=== PATIENT | male | born 1935 | race Caucasian/White ===

== ENCOUNTER 2017-07-26 16:53 | Inpatient (IN) | payer MEDICARE, OTHER ==
[2017-07-26 16:55] VITALS: BMI 22.6
[2017-07-26 17:20] LABS: BASO # 0.1 K/uL (0.0-0.2); BASO % 0.7 % (0.0-2.0); EOS # 0.1 K/uL (0.0-0.7); EOS % 1.2 % (0.0-4.0); HEMOGLOBIN 7.5 g/dL (12.0-18.0); LYMPH % 11.2 % (20.0-40.0); MEAN CELL VOLUME 91.7 fL (80.0-94.0); MEAN CORPUSCULAR HEMOGLOBIN 29.1 pg (27.0-31.0); MEAN CORPUSCULAR HGB CONC 31.7 g/dL (33.0-37.0); MEAN PLATELET VOLUME 9.4 fL (7.2-11.7); MONO # 0.4 K/uL (0.0-0.8); NEUT % 81.9 % (50.0-75.0); RBC 2.57 Mil/uL (4.40-5.90); RED CELL DISTRIBUTION WIDTH 18.4 % (11.5-14.5); WHITE BLOOD COUNT 8.5 K/uL (4.8-10.8)
[2017-07-26 17:40] LABS: ALB/GLOB RATIO 0.9 (1.0-2.1); ALBUMIN 2.8 g/dL (3.5-5.0); CALCIUM 8.2 mg/dl (8.6-10.4)
[2017-07-26 17:52] LABS: CK-MB 1.08 ng/mL (0.0-3.38); TROPONIN I 0.023 ng/mL (0.00-0.120)
--- NOTE | 2017-07-26 18:09 | C.PDOC ---
History Of Present Illness 81 y/o male brought to ED by EMS from hemodialysis with complaints of chest pain. During HD, systolic blood pressure was noted to be in 50s (after 1hour and half of dialysis). Patient was given 300ml of fluids through dialysis port and upon arrival of EMS denied chest pain or SOB. Patient was given ASA 324mg PO in the field. He denies physical complaints at this time. Time Seen by Provider: 07/26/17 16:56 Chief Complaint (Nursing): Chest Pain History Per: Patient, EMS History/Exam Limitations: no limitations Onset/Duration Of Symptoms: Hrs Current Symptoms Are (Timing): Better Severity: Mild Quality: "Pain" Past Medical History Reviewed: Historical Data, Nursing Documentation, Vital Signs Vital Signs: Last Vital Signs Temp 98.6 F 07/26/17 16:53 Pulse 95 H 07/26/17 16:53 Resp 12 07/26/17 16:53 BP 95/52 L 07/26/17 16:53 Pulse Ox 99 07/26/17 18:11 - Medical History PMH: Anemia, Anxiety, Atrial Fibrillation, Diabetes, HTN, Hypercholesterolemia, End Stage Renal Disease, Chronic Kidney Disease (hemodialysis) Surgical History: No Surg Hx - [facility] Procedures CYSTOSCOPY NEC (04/10/14) ENTERAL INFUSION OF CONCENTRATED NUT. SUBSTANCES (07/19/14) HEMODIALYSIS (09/04/14) INCIS W REM OF FORIEGN BODY OR DEV FROM SKIN & SUBCUT TISSUE (10/12/13) INFLUENZA VACCINATION (04/10/14) INSERT INDWELLING CATH (04/10/14) INSERT PACE. DUAL RHINA IN CHEST SUBCU/FASCIA, PERC (11/19/15) INSERTION OF PACEMAKER LEAD INTO R VENTRICLE, PERC APPROACH (11/19/15) OTHER SKIN & SUBQ I D (10/12/13) PACKED CELL TRANSFUSION (10/12/13) PERFORMANCE OF URINARY FILTRATION, MULTIPLE (11/19/15) PERFORMANCE OF URINARY FILTRATION, SINGLE (11/09/15) REMOV GASTROSTOMY TUBE (07/19/14) REPLACE GASTROSTOMY TUBE (10/12/13) RETROGRADE PYELOGRAM (04/10/14) VACCINATION NEC (04/10/14) VENOUS CATHETERIZATION FOR RENAL DIALYSIS (12/04/13) Family History: States: Diabetes, Hypertension - Social History Hx Alcohol Use: No Hx Substance Use: No - Immunization History Hx Tetanus Toxoid Vaccination: No Hx Influenza Vaccination: Yes Hx Pneumococcal Vaccination: Yes Review Of Systems Except As Marked, All Systems Reviewed And Found Negative. Cardiovascular: Positive for: Chest Pain. Negative for: Palpitations Respiratory: Negative for: Shortness of Breath Gastrointestinal: Negative for: Abdominal Pain Physical Exam - Physical Exam Appears: Well, Non-toxic, Chronically Ill, Other (Comfortable) Skin: Warm, Dry, No Rash Head: Normacephalic Eye(s): bilateral: Normal Inspection Oral Mucosa: Moist Neck: Supple Chest: Other (Left upper chest dialysis port ) Cardiovascular: Rhythm Regular Respiratory: Rales (mild at bases B/L ), No Rhonchi, No Wheezing Gastrointestinal/Abdominal: Bowel Sounds, Soft, No Tenderness, No Guarding, No Rebound Extremity: No Pedal Edema, Other (Cachectic lower extremities, heels dressed in gauze with waffle boots B/L ) Extremity: Bilateral: Normal ROM Neurological/Psych: Oriented x3 ED Course And Treatment - Laboratory Results Result Diagrams: 07/26/17 17:17 07/26/17 17:17 ECG: Interpreted By Me, Viewed By Me ECG Rhythm: Sinus Rhythm ECG Interpretation: Abnormal Interpretation Of ECG: Left axis deviation, T wave inversion in AVL and V6. No acute ST/T wave changes Rate From EC (BPM) O2 Sat by Pulse Oximetry: 99 (RA) - Radiology CXR: Interpreted by Me, Viewed By Me (no infiltrates/effusions, PPM left upper chest, dialysis cather right upper chest) Progress Note: Blood work, CXR, EKG ordered and reviewed. Blood work shows significant anemia, Hgb 7.5. As per HD staff and EMS, patient's systolic BP is typically in 90s. - Physician Consult Information Physician Contacted: Fide Duncan Outcome Of Conversation: Discussed patient with his fire watcher Dr. Duncan, states patient's Hgb is typically higher. Recommends admission for dialysis and transfusion during HD tomorrow. Patient's PMD is Dr. Krishnamurthy. Disposition - Disposition Forms: [employer] ([place]) - Scribe Statement The provider has reviewed the documentation as recorded by the Scribelaine Haskins All medical record entries made by the Scribe were at my direction and personally dictated by me. I have reviewed the chart and agree that the record accurately reflects my personal performance of the history, physical exam, medical decision making, and the department course for this patient. I have also personally directed, reviewed, and agree with the discharge instructions and disposition.
--- NOTE | 2017-07-26 19:56 | CP.PCM.CON ---
History of Present Illness - History of Present Illness History of Present Illness: REASONS FOR CONSULT : ESRD ON HD M W F ANEMIA OF CKD .. HGB 7.5 .. NEEDS TRANSFUSION PT IS WELL KNOWN TO ME .. MY HD PT .. WAS GETTING HIS REGULARY SCHEDULED HD TRX .. HD RN CALLED ME THAT PT HAS VERY LOW BP AND STARTED C/O C/P PT WAS SENT TO ER FOR EVAL CASE D/W DR BORJA IN FROM ER CASE D/W DR VICKERS ..PMD .. AT LENGTH 81 y/o male brought to ED by EMS from hemodialysis with complaints of chest pain. During HD, systolic blood pressure was noted to be in 50s (after 1hour and half of dialysis). Patient was given 300ml of fluids through dialysis port and upon arrival of EMS denied chest pain or SOB. Patient was given ASA 324mg PO in the field. He denies physical complaints at this time. Time Seen by Provider: 07/26/17 16:56 Chief Complaint (Nursing): Chest Pain History Per: Patient, EMS History/Exam Limitations: no limitations Onset/Duration Of Symptoms: Hrs Current Symptoms Are (Timing): Better Severity: Mild Quality: "Pain" Past Medical History Reviewed: Historical Data, Nursing Documentation, Vital Signs Vital Signs: Last Vital Signs Temp 98.6 F 07/26/17 16:53 Pulse 95 H 07/26/17 16:53 Resp 12 07/26/17 16:53 BP 95/52 L 07/26/17 16:53 Pulse Ox 99 07/26/17 18:11 - Medical History PMH: Anemia, Anxiety, Atrial Fibrillation, Diabetes, HTN, Hypercholesterolemia, End Stage Renal Disease, Chronic Kidney Disease (hemodialysis) Surgical History: No Surg Hx - [facility] Procedures CYSTOSCOPY NEC (04/10/14) ENTERAL INFUSION OF CONCENTRATED NUT. SUBSTANCES (07/19/14) HEMODIALYSIS (09/04/14) INCIS W REM OF FORIEGN BODY OR DEV FROM SKIN & SUBCUT TISSUE (10/12/13) INFLUENZA VACCINATION (04/10/14) INSERT INDWELLING CATH (04/10/14) INSERT PACE. DUAL RHINA IN CHEST SUBCU/FASCIA, PERC (11/19/15) INSERTION OF PACEMAKER LEAD INTO R VENTRICLE, PERC APPROACH (11/19/15) OTHER SKIN & SUBQ I D (10/12/13) PACKED CELL TRANSFUSION (10/12/13) PERFORMANCE OF URINARY FILTRATION, MULTIPLE (11/19/15) PERFORMANCE OF URINARY FILTRATION, SINGLE (11/09/15) REMOV GASTROSTOMY TUBE (07/19/14) REPLACE GASTROSTOMY TUBE (10/12/13) RETROGRADE PYELOGRAM (04/10/14) VACCINATION NEC (04/10/14) VENOUS CATHETERIZATION FOR RENAL DIALYSIS (12/04/13) Past Patient History - Past Medical History & Family History Past Medical History?: Yes - Past Social History Smoking Status: Never Smoked - CARDIAC Hx Atrial Fibrillation: Yes Hx Hypercholesterolemia: Yes Hx Hypertension: Yes - PULMONARY Hx Respiratory Disorders: Yes (Resp arrest 2013) - NEUROLOGICAL Hx Neurological Disorder: No - HEENT Hx HEENT Problems: Yes - RENAL Hx Chronic Kidney Disease: Yes (hemodialysis) - ENDOCRINE/METABOLIC Hx Endocrine Disorders: Yes Hx Diabetes Mellitus Type 2: Yes - HEMATOLOGICAL/ONCOLOGICAL Hx Anemia: Yes - INTEGUMENTARY Hx Dermatological Problems: Yes Other/Comment: 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 - MUSCULOSKELETAL/RHEUMATOLOGICAL Hx Musculoskeletal Disorders: No Hx Falls: No - GASTROINTESTINAL Hx Gastrointestinal Disorders: Yes Other/Comment: Gastric CA - GENITOURINARY/GYNECOLOGICAL Hx Genitourinary Disorders: Yes (UTI) - PSYCHIATRIC Hx Anxiety: Yes Hx Substance Use: No - SURGICAL HISTORY Hx Surgeries: Yes Other/Comment: PEG was removed PERMA CATH, Tracheostomy, colon sx, stomach tumor removal - ANESTHESIA Hx Anesthesia: Yes Hx Anesthesia Reactions: No Meds Allergies/Adverse Reactions: Allergies Allergy/AdvReac Type Severity Reaction Status Date / Time acetaminophen [From Tylenol] Allergy Verified 07/26/17 16:55 cefazolin [From Ancef] Allergy Verified 07/26/17 17:02 nitrofurantoin Allergy Verified 07/26/17 17:02 [From Macrobid] Sulfa (Sulfonamide Allergy Verified 07/26/17 17:02 Antibiotics) Results - Vital Signs Recent Vital Signs: Last Vital Signs Temp 98.6 F 07/26/17 16:53 Pulse 78 07/26/17 19:40 Resp 13 07/26/17 19:40 BP 98/51 L 07/26/17 19:40 Pulse Ox 100 07/26/17 19:40 - Labs Result Diagrams: 07/26/17 17:17 07/26/17 17:17 Labs: Laboratory Results - last 24 hr 07/26/17 07/26/1718 17:17 17:17 18:33 WBC 8.5 RBC 2.57 L Hgb 7.5 L Hct 23.6 L MCV 91.7 MCH 29.1 MCHC 31.7 L RDW 18.4 H Plt Count 205 MPV 9.4 Neut % (Auto) 81.9 H Lymph % (Auto) 11.2 L [place] % (Auto) 5.0 Eos % (Auto) 1.2 Baso % (Auto) 0.7 Neut # (Auto) 7.0 Lymph # (Auto) 1.0 [place] # (Auto) 0.4 Eos # (Auto) 0.1 Baso # (Auto) 0.1 Sodium 140 Potassium 4.5 Chloride 97 L Carbon Dioxide 31 H Anion Gap 16 BUN 36 H Creatinine 3.0 H Est GFR ( Amer) 24 Est GFR (Non-Af Amer) 20 POC Glucose (mg/dL) 110 Random Glucose 103 Calcium 8.2 L Total Bilirubin 0.3 AST 21 ALT 19 L Alkaline Phosphatase 57 Total Creatine Kinase 28 L CK-MB (Mass) 1.08 Troponin I 0.0230 NT-Pro-B Natriuret Pep 2060 H Total Protein 5.9 L Albumin 2.8 L Globulin 3.1 Albumin/Globulin Ratio 0.9 L Blood Type Antibody Screen 07/26/17 18:51 WBC RBC Hgb Hct MCV MCH MCHC RDW Plt Count MPV Neut % (Auto) Lymph % (Auto) [place] % (Auto) Eos % (Auto) Baso % (Auto) Neut # (Auto) Lymph # (Auto) [place] # (Auto) Eos # (Auto) Baso # (Auto) Sodium Potassium Chloride Carbon Dioxide Anion Gap BUN Creatinine Est GFR ( Amer) Est GFR (Non-Af Amer) POC Glucose (mg/dL) Random Glucose Calcium Total Bilirubin AST ALT Alkaline Phosphatase Total Creatine Kinase CK-MB (Mass) Troponin I NT-Pro-B Natriuret Pep Total Protein Albumin Globulin Albumin/Globulin Ratio Blood Type O POSITIVE Antibody Screen Negative Assessment & Plan - Assessment and Plan (Free Text) Assessment: ESRD ON HD M W F .. HAD ONLY 1.5 HOUR TODAY ANEMIA OF CKD HGB 7.5 .. WILL TRANSFUSE 2 UNITS PRBC ON HD IN AM HYPOTENSION .. PT NOT ON ANY ANTI HTN MEDS .. WILL WATCH .. BNP 2000 MMP P : D/W DR VICKERS HD IN AM + TRANSFUSE 2 UNITS PRBC ON HD C/O CURRENT MEDS CHECK LYTES ECHO ? MAKE SURE NO BRANDAN CARDIAL EFFUSION - Date & Time Date: 07/26/17 Time: 18:00
[2017-07-26] MEDS ORDERED: Ergocalciferol 50,000 Intl Units Cap PO SCH (20:15)
[2017-07-27 04:26] LABS: BASO # 0.1 K/uL (0.0-0.2); EOS # 0.2 K/uL (0.0-0.7); EOS % 1.6 % (0.0-4.0); LYMPH # 2.6 K/uL (1.0-4.3); LYMPH % 19.1 % (20.0-40.0); MEAN CELL VOLUME 92.8 fL (80.0-94.0); MEAN CORPUSCULAR HEMOGLOBIN 28.9 pg (27.0-31.0); MEAN CORPUSCULAR HGB CONC 31.2 g/dL (33.0-37.0); MEAN PLATELET VOLUME 9.7 fL (7.2-11.7); MONO # 0.8 K/uL (0.0-0.8); MONO % 5.7 % (0.0-10.0); NEUT # 9.9 K/uL (1.8-7.0); NEUT % 72.6 % (50.0-75.0); RBC 2.2 Mil/uL (4.40-5.90); RED CELL DISTRIBUTION WIDTH 18.4 % (11.5-14.5); WHITE BLOOD COUNT 13.7 K/uL (4.8-10.8)
[2017-07-27 04:33] LABS: HEMOGLOBIN 6.4 g/dL (12.0-18.0)
[2017-07-27] MEDS ORDERED: Sodium Chloride 0.9% 200 ML IV ONE (05:18)
[2017-07-27] MEDS ORDERED: Sodium Chloride 0.9% 250 ML IV ONE (05:28)
--- NOTE | 2017-07-27 06:29 | CP.PCM.CON ---
History of Present Illness - History of Present Illness History of Present Illness: 81yo M. with one episode of melanotic stool and coffee ground emesis. Patient not a good communicator, but alert and follows commands. Review of Systems - Review of Systems Systems not reviewed;Unavailable: Language Barrier Past Patient History - Past Medical History & Family History Past Medical History?: Yes - Past Social History Smoking Status: Never Smoked - CARDIAC Hx Atrial Fibrillation: Yes Hx Hypercholesterolemia: Yes Hx Hypertension: Yes - PULMONARY Hx Respiratory Disorders: Yes (Resp arrest 2013) - NEUROLOGICAL Hx Neurological Disorder: No - HEENT Hx HEENT Problems: Yes - RENAL Hx Chronic Kidney Disease: Yes (hemodialysis) - ENDOCRINE/METABOLIC Hx Endocrine Disorders: Yes Hx Diabetes Mellitus Type 2: Yes - HEMATOLOGICAL/ONCOLOGICAL Hx Anemia: Yes - INTEGUMENTARY Hx Dermatological Problems: Yes Other/Comment: 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 - MUSCULOSKELETAL/RHEUMATOLOGICAL Hx Musculoskeletal Disorders: No Hx Falls: No - GASTROINTESTINAL Hx Gastrointestinal Disorders: Yes Other/Comment: Gastric CA - GENITOURINARY/GYNECOLOGICAL Hx Genitourinary Disorders: Yes (UTI) - PSYCHIATRIC Hx Anxiety: Yes Hx Substance Use: No - SURGICAL HISTORY Hx Surgeries: Yes Other/Comment: PEG was removed PERMA CATH, Tracheostomy, colon sx, stomach tumor removal - ANESTHESIA Hx Anesthesia: Yes Hx Anesthesia Reactions: No Meds Allergies/Adverse Reactions: Allergies Allergy/AdvReac Type Severity Reaction Status Date / Time acetaminophen [From Tylenol] Allergy Verified 07/26/17 16:55 cefazolin [From Ancef] Allergy Verified 07/26/17 17:02 nitrofurantoin Allergy Verified 07/26/17 17:02 [From Macrobid] Sulfa (Sulfonamide Allergy Verified 07/26/17 17:02 Antibiotics) - Medications Medications: Current Medications Ascorbic Acid (Vitamin C 500 Mg Tab) 500 mg PO DAILY [facility] Ascorbic Acid (Vitamin C 500 Mg Tab) 250 mg PO DAILY [facility] Aspirin (Aspirin Chewable) 81 mg PO DAILY [facility] Clopidogrel Bisulfate (Plavix) 75 mg PO DAILY [facility] Ergocalciferol (Drisdol 50,000 Intl Units Cap) 1 cap PO Q7D [facility] Last Admin: 07/26/17 21:29 Dose: Not Given Escitalopram Oxalate (Lexapro) 2.5 mg PO DAILY [facility] Famotidine (Pepcid) 20 mg PO DAILY [facility] Home Med (Sevelamer [Renagel]) 800 mg PO BID RO Mirtazapine (Remeron) 15 mg PO HS RO Pantoprazole Sodium (Protonix Inj) 40 mg IVP DAILY RO Vitamin B Complex/Vit C/Folic Acid (Nephro-Xavier) 1 tab PO 0800 RO Physical Exam - Constitutional Appears: Cachectic - Head Exam Head Exam: ATRAUMATIC, NORMAL INSPECTION, NORMOCEPHALIC - Eye Exam Eye Exam: EOMI, Normal appearance, PERRL Pupil Exam: NORMAL ACCOMODATION, PERRL - ENT Exam ENT Exam: Mucous Membranes Dry - Respiratory Exam Respiratory Exam: Clear to Auscultation Bilateral, NORMAL BREATHING PATTERN - Cardiovascular Exam Cardiovascular Exam: Tachycardia - GI/Abdominal Exam GI & Abdominal Exam: Normal Bowel Sounds, Soft. absent: Tenderness - Neurological Exam Neurological exam: Alert - Psychiatric Exam Psychiatric exam: Flat Affect Results - Vital Signs Recent Vital Signs: Last Vital Signs Temp 98.1 F 07/27/17 06:08 Pulse 98 H 07/27/17 06:08 Resp 20 07/27/17 06:08 BP 86/46 L 07/27/17 04:50 Pulse Ox 100 07/27/17 06:08 - Labs Result Diagrams: 07/27/17 04:18 07/26/17 17:17 Labs: Laboratory Results - last 24 hr 07/26/17 07/26/17 07/26/17 17:17 17:17 18:33 WBC 8.5 RBC 2.57 L Hgb 7.5 L Hct 23.6 L MCV 91.7 MCH 29.1 MCHC 31.7 L RDW 18.4 H Plt Count 205 MPV 9.4 Neut % (Auto) 81.9 H Lymph % (Auto) 11.2 L [place] % (Auto) 5.0 Eos % (Auto) 1.2 Baso % (Auto) 0.7 Neut # (Auto) 7.0 Lymph # (Auto) 1.0 [place] # (Auto) 0.4 Eos # (Auto) 0.1 Baso # (Auto) 0.1 Sodium 140 Potassium 4.5 Chloride 97 L Carbon Dioxide 31 H Anion Gap 16 BUN 36 H Creatinine 3.0 H Est GFR ( Amer) 24 Est GFR (Non-Af Amer) 20 POC Glucose (mg/dL) 110 Random Glucose 103 Calcium 8.2 L Phosphorus Magnesium Total Bilirubin 0.3 AST 21 ALT 19 L Alkaline Phosphatase 57 Total Creatine Kinase 28 L CK-MB (Mass) 1.08 Troponin I 0.0230 NT-Pro-B Natriuret Pep 2060 H Total Protein 5.9 L Albumin 2.8 L Globulin 3.1 Albumin/Globulin Ratio 0.9 L 25-OH Vitamin D Total Stool Occult Blood Blood Type Antibody Screen 07/26/17 07/26/17 07/26/17 18:51 20:22 20:23 WBC RBC Hgb Hct MCV MCH MCHC RDW Plt Count MPV Neut % (Auto) Lymph % (Auto) [place] % (Auto) Eos % (Auto) Baso % (Auto) Neut # (Auto) Lymph # (Auto) [place] # (Auto) Eos # (Auto) Baso # (Auto) Sodium Potassium Chloride Carbon Dioxide Anion Gap BUN Creatinine Est GFR ( Amer) Est GFR (Non-Af Amer) POC Glucose (mg/dL) Random Glucose Calcium Phosphorus 2.5 Magnesium 2.0 Total Bilirubin AST ALT Alkaline Phosphatase Total Creatine Kinase CK-MB (Mass) Troponin I NT-Pro-B Natriuret Pep Total Protein Albumin Globulin Albumin/Globulin Ratio 25-OH Vitamin D Total 21.7 L Stool Occult Blood Blood Type O POSITIVE Antibody Screen Negative 07/27/17 07/27/17 07/27/17 04:18 04:34 05:02 WBC 13.7 H D RBC 2.20 L Hgb 6.4 L* Hct 20.4 L MCV 92.8 MCH 28.9 MCHC 31.2 L RDW 18.4 H Plt Count 316 D MPV 9.7 Neut % (Auto) 72.6 Lymph % (Auto) 19.1 L [place] % (Auto) 5.7 Eos % (Auto) 1.6 Baso % (Auto) 1.0 Neut # (Auto) 9.9 H Lymph # (Auto) 2.6 [place] # (Auto) 0.8 Eos # (Auto) 0.2 Baso # (Auto) 0.1 Sodium Potassium Chloride Carbon Dioxide Anion Gap BUN Creatinine Est GFR ( Amer) Est GFR (Non-Af Amer) POC Glucose (mg/dL) Random Glucose Calcium Phosphorus Magnesium Total Bilirubin AST ALT Alkaline Phosphatase Total Creatine Kinase CK-MB (Mass) Troponin I 0.0300 NT-Pro-B Natriuret Pep Total Protein Albumin Globulin Albumin/Globulin Ratio 25-OH Vitamin D Total Stool Occult Blood Positive H Blood Type Antibody Screen Assessment & Plan (1) Upper GI bleed Assessment and Plan: saw patient, dropped ngt, no output. CV: hypotensive for a normally hypertensive patient, but blood pressure already stabilizing. if no further improvement will admit to ICU. Hem: transfuse 2 units PRBC, first unit going in now. Renal: NS@100, hold off dialysis until blood pressure stabilizes. once pressure completely stable can continue with dialysis. GI: upper gi bleed, will need EGD, GI consulted. protonix IV q12h, a drip is no better than q12h dosing and to minimize fluid intake on a dialysis patient I would recommend q12h dosing. no need for octreotid as he has no risk factors for variceal bleeding. NPO for now. DVT proph - SCD's, no a/c with current bleed GI proph - protonix IV full code Critical care time 35 minutes Status: Acute
[2017-07-27 07:18] LABS: ALB/GLOB RATIO 0.9 (1.0-2.1); CALCIUM 8.3 mg/dl (8.6-10.4)
[2017-07-27] MEDS ORDERED: Etomidate 20 mg/10ml Inj IV ONE (08:01)
--- NOTE | 2017-07-27 08:07 | RAD ---
PROCEDURE: CHEST RADIOGRAPH, 1 VIEW HISTORY: Chest pain COMPARISON: None available. FINDINGS: The left-sided dialysis catheter terminates in the right atrium. LUNGS: The lungs are well inflated and clear. PLEURA: No pneumothorax or pleural fluid seen. CARDIOVASCULAR: The heart is normal in size. Atherosclerotic aortic arch calcifications are present. . There is a right-sided unipolar permanent pacing device. OSSEOUS STRUCTURES: No significant abnormalities. VISUALIZED UPPER ABDOMEN: Normal. OTHER FINDINGS: There is elevation of the right hemidiaphragm. IMPRESSION: No acute findings.
[2017-07-27] MEDS ORDERED: Sodium Chloride 0.9% 1,000 ML IV SCH (08:15)
[2017-07-27] MEDS: Pantoprazole 80 MG in Sodium Chloride 0.9% 100 ML IV SCH ×2 (08:45→17:10)
[2017-07-27] MEDS: Multivitamin Vitamin B Complex (Nephro-Vite) Tab PO SCH (08:45)
--- NOTE | 2017-07-27 09:32 | CP.PCM.CON ---
<Rodolfo Craig - Last Filed: 07/27/17 09:58> History of Present Illness - History of Present Illness History of Present Illness: PGY4 Initial GI Consult Jordi Bustillos 81M w. hx of ESRD, gastric and colon ca?, who presented to the ER from the [place] due to chest pain. Pt has poor communication so all of the information obtained is from EMR, staff, and daughter on the phone. During HD, systolic blood pressure was noted to be in 50s (after 1hour and half of dialysis ). Patient was given 300ml of fluids through dialysis port and upon arrival of EMS denied chest pain or SOB. Pt started complaining of chest pain and was sent to [facility] for further eval. Upon arrival to the ED, as per RN, he had melonic BM x2 and coffee-ground emesis. He was ordered 2 units of PRBC and given 40mg IV protonix in the ER. An NG tube was placed and placed on suction by ER and produced blood tinged gastric content and coffee-grounds. As per daughter, he was previously found to have a gastric mass and colon mass. 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 Denies any abd pain, nausea or vomiting. PMHx: Anemia, Anxiety, Atrial Fibrillation, Diabetes, HTN, Hypercholesterolemia , End Stage Renal Disease, Chronic Kidney Disease (hemodialysis) PSHx: foot debridment, PPM placement, PEG placement and removal, colon and gastric surgery? Social hx: unkown Endo Hx: unknown Family hx: daughter denies ROS: could not be obtained 2/2 AMS Past Patient History - Past Medical History & Family History Past Medical History?: Yes - Past Social History Smoking Status: Never Smoked - CARDIAC Hx Atrial Fibrillation: Yes Hx Hypercholesterolemia: Yes Hx Hypertension: Yes - PULMONARY Hx Respiratory Disorders: Yes (Resp arrest 2013) - NEUROLOGICAL Hx Neurological Disorder: No - HEENT Hx HEENT Problems: Yes - RENAL Hx Chronic Kidney Disease: Yes (hemodialysis) - ENDOCRINE/METABOLIC Hx Endocrine Disorders: Yes Hx Diabetes Mellitus Type 2: Yes - HEMATOLOGICAL/ONCOLOGICAL Hx Anemia: Yes - INTEGUMENTARY Hx Dermatological Problems: Yes Other/Comment: 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 - MUSCULOSKELETAL/RHEUMATOLOGICAL Hx Musculoskeletal Disorders: No Hx Falls: No - GASTROINTESTINAL Hx Gastrointestinal Disorders: Yes Other/Comment: Gastric CA - GENITOURINARY/GYNECOLOGICAL Hx Genitourinary Disorders: Yes (UTI) - PSYCHIATRIC Hx Anxiety: Yes Hx Substance Use: No - SURGICAL HISTORY Hx Surgeries: Yes Other/Comment: PEG was removed PERMA CATH, Tracheostomy, colon sx, stomach tumor removal - ANESTHESIA Hx Anesthesia: Yes Hx Anesthesia Reactions: No Meds Allergies/Adverse Reactions: Allergies Allergy/AdvReac Type Severity Reaction Status Date / Time acetaminophen [From Tylenol] Allergy Verified 07/26/17 16:55 cefazolin [From Ancef] Allergy Verified 07/26/17 17:02 nitrofurantoin Allergy Verified 07/26/17 17:02 [From Macrobid] Sulfa (Sulfonamide Allergy Verified 07/26/17 17:02 Antibiotics) - Medications Medications: Current Medications Ascorbic Acid (Vitamin C 500 Mg Tab) 500 mg PO DAILY [facility] Epoetin Javed (Procrit) 10,000 unit IV TTS [facility] Stop: 08/07/17 10:01 Ergocalciferol (Drisdol 50,000 Intl Units Cap) 1 cap PO Q7D [facility] Last Admin: 07/26/17 21:29 Dose: Not Given Pantoprazole Sodium 80 mg/ (Sodium Chloride) 100 mls @ 10 mls/hr IV .Q10H RO PRN Reason: 8 MG/HR Sodium Chloride (Sodium Chloride 0.9%) 1,000 mls @ 100 mls/hr IV .Q10H [facility] Sevelamer Carbonate (Renvela) 800 mg PO BIDCC [facility] Vitamin B Complex/Vit C/Folic Acid (Nephro-Xavier) 1 tab PO 0800 [facility] Physical Exam - Constitutional Appears: No Acute Distress, Confused, Chronically Ill - Head Exam Head Exam: ATRAUMATIC, NORMOCEPHALIC - Eye Exam Eye Exam: Normal appearance - ENT Exam ENT Exam: Mucous Membranes Moist, Normal Exam - Neck Exam Neck exam: Positive for: Normal Inspection - Respiratory Exam Respiratory Exam: Clear to Auscultation Bilateral, NORMAL BREATHING PATTERN. absent: Rales, Rhonchi, Wheezes, Respiratory Distress - Cardiovascular Exam Cardiovascular Exam: REGULAR RHYTHM, +S1, +S2 - GI/Abdominal Exam GI & Abdominal Exam: Normal Bowel Sounds, Soft. absent: Organomegaly, Rebound, Rigid, Tenderness - Rectal Exam Rectal Exam: Black Stool - Extremities Exam Extremities exam: Negative for: joint swelling, pedal edema - Neurological Exam Neurological exam: Alert, Oriented x3 - Psychiatric Exam Psychiatric exam: Normal Affect, Normal Mood - Skin Skin Exam: Dry, Intact, Normal Color, Warm Results - Vital Signs Recent Vital Signs: Last Vital Signs Temp 97.5 F L 07/27/17 07:35 Pulse 92 H 07/27/17 07:35 Resp 16 07/27/17 07:35 BP 91/41 L 07/27/17 07:35 Pulse Ox 100 07/27/17 07:35 - Labs Result Diagrams: 07/27/17 04:18 07/27/17 06:33 Labs: Laboratory Results - last 24 hr 07/26/17 07/26/17 07/26/17 17:17 17:17 18:33 WBC 8.5 RBC 2.57 L Hgb 7.5 L Hct 23.6 L MCV 91.7 MCH 29.1 MCHC 31.7 L RDW 18.4 H Plt Count 205 MPV 9.4 Neut % (Auto) 81.9 H Lymph % (Auto) 11.2 L [place] % (Auto) 5.0 Eos % (Auto) 1.2 Baso % (Auto) 0.7 Neut # (Auto) 7.0 Lymph # (Auto) 1.0 [place] # (Auto) 0.4 Eos # (Auto) 0.1 Baso # (Auto) 0.1 Sodium 140 Potassium 4.5 Chloride 97 L Carbon Dioxide 31 H Anion Gap 16 BUN 36 H Creatinine 3.0 H Est GFR ( Amer) 24 Est GFR (Non-Af Amer) 20 POC Glucose (mg/dL) 110 Random Glucose 103 Calcium 8.2 L Phosphorus Magnesium Total Bilirubin 0.3 AST 21 ALT 19 L Alkaline Phosphatase 57 Total Creatine Kinase 28 L CK-MB (Mass) 1.08 Troponin I 0.0230 NT-Pro-B Natriuret Pep 2060 H Total Protein 5.9 L Albumin 2.8 L Globulin 3.1 Albumin/Globulin Ratio 0.9 L 25-OH Vitamin D Total Stool Occult Blood Blood Type Antibody Screen 07/26/17 07/26/17 07/26/17 18:51 20:22 20:23 WBC RBC Hgb Hct MCV MCH MCHC RDW Plt Count MPV Neut % (Auto) Lymph % (Auto) [place] % (Auto) Eos % (Auto) Baso % (Auto) Neut # (Auto) Lymph # (Auto) [place] # (Auto) Eos # (Auto) Baso # (Auto) Sodium Potassium Chloride Carbon Dioxide Anion Gap BUN Creatinine Est GFR ( Amer) Est GFR (Non-Af Amer) POC Glucose (mg/dL) Random Glucose Calcium Phosphorus 2.5 Magnesium 2.0 Total Bilirubin AST ALT Alkaline Phosphatase Total Creatine Kinase CK-MB (Mass) Troponin I NT-Pro-B Natriuret Pep Total Protein Albumin Globulin Albumin/Globulin Ratio 25-OH Vitamin D Total 21.7 L Stool Occult Blood Blood Type O POSITIVE Antibody Screen Negative 07/27/17 07/27/17 07/27/17 04:18 04:34 05:02 WBC 13.7 H D RBC 2.20 L Hgb 6.4 L* Hct 20.4 L MCV 92.8 MCH 28.9 MCHC 31.2 L RDW 18.4 H Plt Count 316 D MPV 9.7 Neut % (Auto) 72.6 Lymph % (Auto) 19.1 L [place] % (Auto) 5.7 Eos % (Auto) 1.6 Baso % (Auto) 1.0 Neut # (Auto) 9.9 H Lymph # (Auto) 2.6 [place] # (Auto) 0.8 Eos # (Auto) 0.2 Baso # (Auto) 0.1 Sodium Potassium Chloride Carbon Dioxide Anion Gap BUN Creatinine Est GFR ( Amer) Est GFR (Non-Af Amer) POC Glucose (mg/dL) Random Glucose Calcium Phosphorus Magnesium Total Bilirubin AST ALT Alkaline Phosphatase Total Creatine Kinase CK-MB (Mass) Troponin I 0.0300 NT-Pro-B Natriuret Pep Total Protein Albumin Globulin Albumin/Globulin Ratio 25-OH Vitamin D Total Stool Occult Blood Positive H Blood Type Antibody Screen 07/27/17 07/27/17 06:33 08:56 WBC RBC Hgb Hct MCV MCH MCHC RDW Plt Count MPV Neut % (Auto) Lymph % (Auto) [place] % (Auto) Eos % (Auto) Baso % (Auto) Neut # (Auto) Lymph # (Auto) [place] # (Auto) Eos # (Auto) Baso # (Auto) Sodium 138 Potassium 5.1 Chloride 99 Carbon Dioxide 23 Anion Gap 21 H BUN 48 H Creatinine 3.8 H Est GFR ( Amer) 19 Est GFR (Non-Af Amer) 15 POC Glucose (mg/dL) 161 H Random Glucose 141 H Calcium 8.3 L Phosphorus Magnesium Total Bilirubin 0.4 AST 33 ALT 16 L Alkaline Phosphatase 59 Total Creatine Kinase CK-MB (Mass) Troponin I NT-Pro-B Natriuret Pep Total Protein 6.1 L Albumin 3.0 L Globulin 3.2 Albumin/Globulin Ratio 0.9 L 25-OH Vitamin D Total Stool Occult Blood Blood Type Antibody Screen Assessment & Plan - Assessment and Plan (Free Text) Assessment: Jordi Bustillos is 81M w/ hx of Anemia, Anxiety, Atrial Fibrillation, Diabetes, HTN, Hypercholesterolemia, End Stage Renal Disease, Chronic Kidney Disease ( hemodialysis) who presented to the ER with Chest Pain. Pt had melena and anemia. Melena Coffee-ground emesis ESRD PVD Dementia? Plan: -NPO for now -will do an EGD -Prontonix 80mg bolus and 8mg/hr drip -repeat cbc after 2nd unit of PRBC -keep hgb >8 -cardiac consult -do not fully understand the reason for plavix, would recommend to d/c if not indicated by cardiology, unsure of coronary stent placement -nephro on board D/W / Nancy <Luis A Cruz - Last Filed: 07/27/17 10:54> Meds - Medications Medications: Current Medications Ascorbic Acid (Vitamin C 500 Mg Tab) 500 mg PO DAILY [facility] Last Admin: 07/27/17 10:00 Dose: Not Given Epoetin Javed (Procrit) 10,000 unit IV TTS [facility] Stop: 08/07/17 10:01 Ergocalciferol (Drisdol 50,000 Intl Units Cap) 1 cap PO Q7D [facility] Last Admin: 07/26/17 21:29 Dose: Not Given Pantoprazole Sodium 80 mg/ (Sodium Chloride) 100 mls @ 10 mls/hr IV .Q10H [facility] PRN Reason: 8 MG/HR Last Admin: 07/27/17 08:45 Dose: 10 mls/hr Sodium Chloride (Sodium Chloride 0.9%) 1,000 mls @ 100 mls/hr IV .Q10H [facility] Last Admin: 07/27/17 09:26 Dose: 100 mls/hr Sevelamer Carbonate (Renvela) 800 mg PO BIDCC [facility] Last Admin: 07/27/17 08:45 Dose: Not Given Vitamin B Complex/Vit C/Folic Acid (Nephro-Xavier) 1 tab PO 0800 [facility] Last Admin: 07/27/17 08:45 Dose: Not Given Results - Vital Signs Recent Vital Signs: Last Vital Signs Temp 97.5 F L 07/27/17 07:35 Pulse 92 H 07/27/17 07:35 Resp 16 07/27/17 07:35 BP 91/41 L 07/27/17 07:35 Pulse Ox 100 07/27/17 07:35 - Labs Result Diagrams: 07/27/17 04:18 07/27/17 06:33 Labs: Laboratory Results - last 24 hr 07/26/17 07/26/17 07/26/17 17:17 17:17 18:33 WBC 8.5 RBC 2.57 L Hgb 7.5 L Hct 23.6 L MCV 91.7 MCH 29.1 MCHC 31.7 L RDW 18.4 H Plt Count 205 MPV 9.4 Neut % (Auto) 81.9 H Lymph % (Auto) 11.2 L [place] % (Auto) 5.0 Eos % (Auto) 1.2 Baso % (Auto) 0.7 Neut # (Auto) 7.0 Lymph # (Auto) 1.0 [place] # (Auto) 0.4 Eos # (Auto) 0.1 Baso # (Auto) 0.1 Sodium 140 Potassium 4.5 Chloride 97 L Carbon Dioxide 31 H Anion Gap 16 BUN 36 H Creatinine 3.0 H Est GFR ( Amer) 24 Est GFR (Non-Af Amer) 20 POC Glucose (mg/dL) 110 Random Glucose 103 Calcium 8.2 L Phosphorus Magnesium Total Bilirubin 0.3 AST 21 ALT 19 L Alkaline Phosphatase 57 Total Creatine Kinase 28 L CK-MB (Mass) 1.08 Troponin I 0.0230 NT-Pro-B Natriuret Pep 2060 H Total Protein 5.9 L Albumin 2.8 L Globulin 3.1 Albumin/Globulin Ratio 0.9 L 25-OH Vitamin D Total Stool Occult Blood Blood Type Antibody Screen 07/26/17 07/26/17 07/26/17 18:51 20:22 20:23 WBC RBC Hgb Hct MCV MCH MCHC RDW Plt Count MPV Neut % (Auto) Lymph % (Auto) [place] % (Auto) Eos % (Auto) Baso % (Auto) Neut # (Auto) Lymph # (Auto) [place] # (Auto) Eos # (Auto) Baso # (Auto) Sodium Potassium Chloride Carbon Dioxide Anion Gap BUN Creatinine Est GFR ( Amer) Est GFR (Non-Af Amer) POC Glucose (mg/dL) Random Glucose Calcium Phosphorus 2.5 Magnesium 2.0 Total Bilirubin AST ALT Alkaline Phosphatase Total Creatine Kinase CK-MB (Mass) Troponin I NT-Pro-B Natriuret Pep Total Protein Albumin Globulin Albumin/Globulin Ratio 25-OH Vitamin D Total 21.7 L Stool Occult Blood Blood Type O POSITIVE Antibody Screen Negative 07/27/17 07/27/17 07/27/17 04:18 04:34 05:02 WBC 13.7 H D RBC 2.20 L Hgb 6.4 L* Hct 20.4 L MCV 92.8 MCH 28.9 MCHC 31.2 L RDW 18.4 H Plt Count 316 D MPV 9.7 Neut % (Auto) 72.6 Lymph % (Auto) 19.1 L [place] % (Auto) 5.7 Eos % (Auto) 1.6 Baso % (Auto) 1.0 Neut # (Auto) 9.9 H Lymph # (Auto) 2.6 [place] # (Auto) 0.8 Eos # (Auto) 0.2 Baso # (Auto) 0.1 Sodium Potassium Chloride Carbon Dioxide Anion Gap BUN Creatinine Est GFR ( Amer) Est GFR (Non-Af Amer) POC Glucose (mg/dL) Random Glucose Calcium Phosphorus Magnesium Total Bilirubin AST ALT Alkaline Phosphatase Total Creatine Kinase CK-MB (Mass) Troponin I 0.0300 NT-Pro-B Natriuret Pep Total Protein Albumin Globulin Albumin/Globulin Ratio 25-OH Vitamin D Total Stool Occult Blood Positive H Blood Type Antibody Screen 07/27/17 07/27/17 06:33 08:56 WBC RBC Hgb Hct MCV MCH MCHC RDW Plt Count MPV Neut % (Auto) Lymph % (Auto) [place] % (Auto) Eos % (Auto) Baso % (Auto) Neut # (Auto) Lymph # (Auto) [place] # (Auto) Eos # (Auto) Baso # (Auto) Sodium 138 Potassium 5.1 Chloride 99 Carbon Dioxide 23 Anion Gap 21 H BUN 48 H Creatinine 3.8 H Est GFR ( Amer) 19 Est GFR (Non-Af Amer) 15 POC Glucose (mg/dL) 161 H Random Glucose 141 H Calcium 8.3 L Phosphorus Magnesium Total Bilirubin 0.4 AST 33 ALT 16 L Alkaline Phosphatase 59 Total Creatine Kinase CK-MB (Mass) Troponin I NT-Pro-B Natriuret Pep Total Protein 6.1 L Albumin 3.0 L Globulin 3.2 Albumin/Globulin Ratio 0.9 L 25-OH Vitamin D Total Stool Occult Blood Blood Type Antibody Screen Attending/Attestation - Attestation I have personally seen and examined this patient.: Yes I have fully participated in the care of the patient.: Yes I have reviewed all pertinent clinical information: Yes Notes (Text): 07/27/17 10:50 Patient seen in Er this am. This is a 81 year old M with history of Anemia, Anxiety, Atrial Fibrillation, s/p defibrillator in 2016, Diabetes, HTN, Hypercholesterolemia, End Stage Renal Disease, Chronic Kidney Disease ( hemodialysis) who presented to the ER with chest pain, melena and anemia. Drop of 2 gm/dl from his baseline. Urgent EGd done that showed Fundic protrubent vessel with hematin, duodenal bulb multiple cratered ulcers with visible vessel and blood clots. There was an ulcer in second portion of duodenum. All ulcers were treated with epinephrine and cauterized with gold probe. Hemostasis was achieved. Will continue PPI gtt for 72 hours and hold plavix. strongly recommend cardiology consult for use of plavix. Unknown history why he was on it as per daughter. Will give 2 units PRBC and repeat daily CBC. No s/s of coagulopathy or liver dysfunction. Discussed with MICU team. Will follow closely
--- NOTE | 2017-07-27 13:17 | PCM.PROC ---
Procedures Attestation:: I certify that I have explained the specified Operation(s) or Procedure(s), risks, benefits and reasonable alternatives to the Patient and/or other person responsible. The opportunity was given to ask questions and all questions answered - Central Line Placement Right Femoral Triple Lumen Catheter Aseptic technique was employed throughout the procedure: Hand Hygiene done prior to procedure, Full sterile barriers (mask, hair cover, sterile gown, sterile gloves), Chloraprep Antiseptic: 2 minute prep for Femoral CVP Time Out Performed: Yes Pt. Placed on Pulse Ox Monitor: Yes Central Line Prep: Povidone-Iodine 1% Local Anesthesia Used: Lidocaine 1% Ultrasound Used for Placement: Yes Central Line Lumen Inserted: triple Central Line Length: 20 cm Post Procedure: Sutured in Place, Good Blood Return, All Ports Aspirated, Flushed, Capped, Sterile Dressing Applied Secured by: Suture Post procedure dressing: Gauze Post Procedure X-Ray: Yes Patient Tolerated Procedure: Well
[2017-07-27] MEDS: Epoetin Alfa 10,000 unit/ml Dialysis IV SCH (13:41)
--- NOTE | 2017-07-27 14:09 | RAD ---
PROCEDURE: Radiographs of the pelvis. HISTORY: Central Line Placement COMPARISON: None. FINDINGS: BONES: Pelvic Bones: Generalized osteopenia Hips: Bilateral hip arthrosis. No fracture appreciated Inferior lumbar spondylosis. Probably degenerative type wedging of L5. JOINTS: Sacroiliac Joints: Minimal sclerotic changes iliac sided on the right Pubic Symphysis: Unremarkable. OTHER FINDINGS: Apparent "Central line" placement - catheter like tubing projecting of the right hemipelvis. Correlation with procedure performed. IMPRESSION: Right hemipelvic catheter tubing as above. Correlate clinically Senescent changes otherwise
[2017-07-27 14:21] LABS: BASO # 0.2 K/uL (0.0-0.2); BASO % 0.7 % (0.0-2.0); EOS # 0.1 K/uL (0.0-0.7); EOS % 0.3 % (0.0-4.0); LYMPH # 2.1 K/uL (1.0-4.3); LYMPH % 8.6 % (20.0-40.0); MEAN CORPUSCULAR HEMOGLOBIN 29.5 pg (27.0-31.0); MEAN CORPUSCULAR HGB CONC 33.1 g/dL (33.0-37.0); MEAN PLATELET VOLUME 9.5 fL (7.2-11.7); MONO # 1.1 K/uL (0.0-0.8); MONO % 4.7 % (0.0-10.0); NEUT # 20.7 K/uL (1.8-7.0); NEUT % 85.7 % (50.0-75.0); NRBC % 0.1 % (0.0-2.0); PLATELET COUNT 312 K/uL (130-400); RBC 3.49 Mil/uL (4.40-5.90); RED CELL DISTRIBUTION WIDTH 17.1 % (11.5-14.5)
[2017-07-27 14:27] LABS: HEMOGLOBIN 10.3 g/dL (12.0-18.0); MEAN CELL VOLUME 89.1 fL (80.0-94.0); WHITE BLOOD COUNT 24.1 K/uL (4.8-10.8)
[2017-07-27 14:38] LABS: ALBUMIN 2.9 g/dL (3.5-5.0); ALT/SGPT 17 U/L (21-72); AST/SGOT 30 U/L (17-59); BLOOD UREA NITROGEN 13 mg/dL (9-20); CALCIUM 7.7 mg/dl (8.6-10.4); GFR AFRICAN-AMERICAN > 60; GFR NON-AFRICAN AMERICAN 53
[2017-07-27 15:02] LABS: BANDS 2 % (0-2); BASOPHIL 1 % (0-2); EOSINOPHIL 1 % (0-4); LYMPHOCYTE 14 % (20-40); MONOCYTE 3 % (0-10); NEUTROPHIL 79 % (50-75); PLATELET ESTIMATE NORMAL (NORMAL); TOTAL CELLS COUNTED 100
[2017-07-27 15:03] LABS: ANISOCYTOSIS SLIGHT; BURR CELLS SLIGHT; GIANT PLATELETS PRESENT; HYPOCHROMIC SLIGHT; LARGE PLATELETS PRESENT; OVALOCYTES SLIGHT; POIKILOCYTOSIS SLIGHT; TEARDROP CELLS SLIGHT
--- NOTE | 2017-07-27 21:23 | CARD ---
APPROVED REPORT EKG Measurement Heart [id number] <Conclusion> Normal sinus rhythm Left axis deviation T wave abnormality, consider lateral ischemia Abnormal ECG
[2017-07-27 21:26] LABS: BASO # 0.2 K/uL (0.0-0.2); BASO % 1.1 % (0.0-2.0); EOS # 0.1 K/uL (0.0-0.7); EOS % 0.6 % (0.0-4.0); HEMOGLOBIN 8.5 g/dL (12.0-18.0); LYMPH # 1.7 K/uL (1.0-4.3); LYMPH % 10.5 % (20.0-40.0); MEAN CORPUSCULAR HEMOGLOBIN 29.8 pg (27.0-31.0); MEAN CORPUSCULAR HGB CONC 33.5 g/dL (33.0-37.0); MEAN PLATELET VOLUME 8.9 fL (7.2-11.7); MONO # 1.3 K/uL (0.0-0.8); MONO % 7.9 % (0.0-10.0); NEUT # 13.1 K/uL (1.8-7.0); NEUT % 79.9 % (50.0-75.0); NRBC % 0.2 % (0.0-2.0); RBC 2.86 Mil/uL (4.40-5.90); RED CELL DISTRIBUTION WIDTH 17.2 % (11.5-14.5); WHITE BLOOD COUNT 16.3 K/uL (4.8-10.8)
--- NOTE | 2017-07-27 22:36 | CP.PCM.PN ---
Subjective - Date & Time of Evaluation Date of Evaluation: 07/27/17 Time of Evaluation: 15:00 - Subjective Subjective: SEEN ON RENAL F/U IN ICU FULLY ALERT AND ORIENTED DENIES NAUSEA OR VOMITTING .. DENIES ABDO PAIN S/P EGD .. RECIEVED 2 U PRBC TODAY ON HD M W F Objective - Vital Signs/Intake and Output Vital Signs (last 24 hours): Temp Pulse Resp BP Pulse Ox 98.8 F 109 H 17 102/52 L 100 07/27/17 20:00 07/27/17 22:00 07/27/17 22:00 07/27/17 21:52 07/27/17 22:00 Intake and Output: 07/27/17 07/28/17 18:59 06:59 Intake Total 1914.9 182.9 Balance 1914.9 182.9 - Medications Medications: Current Medications Ascorbic Acid (Vitamin C 500 Mg Tab) 500 mg PO DAILY [facility] Last Admin: 07/27/17 10:00 Dose: Not Given Epoetin Javed (Procrit) 10,000 unit IV TTS [facility] Stop: 08/07/17 10:01 Last Admin: 07/27/17 13:41 Dose: 10,000 unit Ergocalciferol (Drisdol 50,000 Intl Units Cap) 1 cap PO Q7D [facility] Last Admin: 07/26/17 21:29 Dose: Not Given Heparin Sodium (Porcine) (Heparin) 3,900 units IVP DIAL PRN PRN Reason: to lock HD cath Last Admin: 07/27/17 14:32 Dose: 3,900 units Pantoprazole Sodium 80 mg/ (Sodium Chloride) 100 mls @ 10 mls/hr IV .Q10H RO PRN Reason: 8 MG/HR Last Admin: 07/27/17 17:10 Dose: 10 mls/hr Norepinephrine Bitartrate 4 mg (/ Sodium Chloride) 254 mls @ 15.24 mls/hr IV .[id number] PRN; Protocol; 4 MCG/MIN PRN Reason: TITRATE PER MD ORDER Last Admin: 07/27/17 21:14 Dose: 6 mcg/min, 22.86 mls/hr Potassium Chloride 20 meq/ (Sodium Chloride) 100 mls @ 50 mls/hr IV Q2H [facility] Stop: 07/28/17 04:29 Sevelamer Carbonate (Renvela) 800 mg PO BIDCC [facility] Last Admin: 07/27/17 17:09 Dose: Not Given Vitamin B Complex/Vit C/Folic Acid (Nephro-Xavier) 1 tab PO 0800 [facility] Last Admin: 07/27/17 08:45 Dose: Not Given - Labs Labs: 07/27/17 21:20 07/27/17 14:16 Assessment and Plan - Assessment and Plan (Free Text) Assessment: ESRD ON HD M W F .. TO BE C/O ANEMIA OF CKD WELL GIB MMP P : C/O CURRENT CARE C/O PRESENT MANAGEMENT
--- NOTE | 2017-07-28 03:12 | CON ---
DATE: History was obtained from the patient's daughter. HISTORY OF PRESENT ILLNESS: The patient is an 81-year-old male, who underwent coronary artery bypass surgery about 2 years ago and was started on hemodialysis around at that time. The patient did require prior to that surgeries for his stomach and colon cancer according to the daughter. He required tracheostomy tube placement as well as gastrostomy feeding tube that was later discontinued. The patient was admitted yesterday because of chest pain during hemodialysis as well as hematemesis. The patient remains hemodynamically stable in ICU and underwent an upper endoscopy, which revealed multiple gastric ulcers, duodenal and fundus bleeding, duodenitis, hiatal hernia, clots in the second portion of the duodenum. At this time, the patient denies any chest pain. No reported ventricular tachycardia. SOCIAL HISTORY: The patient is a nonsmoker. He does bathe himself according to the daughter. MEDICATIONS: The patient is currently on Levophed infusion, Protonix infusion. Normal saline 100 mL/h. Renvela 800 mg twice a day. Procrit 10,000 units intravenously . Ascorbic acid 500 mg daily. PHYSICAL EXAMINATION GENERAL: The patient is an elderly male, who just completed his hemodialysis, does not appear to be in acute distress. VITAL SIGNS: Blood pressure 133/57, heart rate 79, temperature 96.4, and respirations 17. HEENT: [place] conjunctivae. CHEST: Diminished breath sounds on the bases. HEART: S1 and S2, regular. ABDOMEN: Soft. EXTREMITIES: Trace edema. LABORATORY DATA: EKG revealed sinus rhythm at the rate of 99, consider lateral ischemia. Chest x-ray yesterday revealed mild cardiomegaly, clear lungs, and single lead ventricular pacemaker. ASSESSMENT: 1. Coronary artery disease, status post coronary artery bypass surgery some 2 years ago. 2. Upper gastrointestinal bleeding with multiple gastric ulcers and duodenitis. 3. Peripheral vascular disease, status post recent toe amputation. 4. History of single chamber ventricular pacemaker placement. RECOMMENDATIONS: Continue current IV Protonix infusion. Continue normal saline infusion as well as Levophed at 6 mcg/per minute with titrating for systolic blood pressure above 110. The patient is not a candidate for either antiplatelet or anticoagulation therapy. Obtain a bedside echocardiogram. Miah Gallagher MD [facility] # [id number]
[2017-07-28 06:39] LABS: BASO # 0.1 K/uL (0.0-0.2); BASO % 0.8 % (0.0-2.0); EOS # 0.2 K/uL (0.0-0.7); HEMOGLOBIN 7.4 g/dL (12.0-18.0); LYMPH # 2.1 K/uL (1.0-4.3); LYMPH % 12.8 % (20.0-40.0); MEAN CELL VOLUME 89.9 fL (80.0-94.0); MEAN CORPUSCULAR HEMOGLOBIN 29.7 pg (27.0-31.0); MEAN CORPUSCULAR HGB CONC 33.1 g/dL (33.0-37.0); MEAN PLATELET VOLUME 9.8 fL (7.2-11.7); MONO # 1.7 K/uL (0.0-0.8); MONO % 10.3 % (0.0-10.0); NEUT # 12.1 K/uL (1.8-7.0); NEUT % 75.1 % (50.0-75.0); NRBC % 0.2 % (0.0-2.0); RBC 2.5 Mil/uL (4.40-5.90); RED CELL DISTRIBUTION WIDTH 17.7 % (11.5-14.5); WHITE BLOOD COUNT 16.1 K/uL (4.8-10.8)
[2017-07-28 06:45] LABS: ALB/GLOB RATIO 0.9 (1.0-2.1); ALBUMIN 2.4 g/dL (3.5-5.0); CALCIUM 7.9 mg/dl (8.6-10.4)
[2017-07-28] MEDS: Pantoprazole 80 MG in Sodium Chloride 0.9% 100 ML IV SCH ×2 (06:54→18:45)
--- NOTE | 2017-07-28 07:01 | HP ---
HISTORY OF PRESENT ILLNESS: This is an 81-year-old male with multiple medical problems including end-stage renal disease, on hemodialysis, was brought to emergency room because of chest pain. The patient is an unreliable historian. During hemodialysis, systolic blood pressure was noted to be low after 1 hour and half and dialysis was stopped. The patient was given 300 mL of fluid through a dialysis port and was brought to emergency room for evaluation. The patient was admitted for further management, and while he was on ER Holding, the patient was noticed to have large bowel movement of melanotic stool. This was followed by a coffee-ground emesis. The patient was started to be transfused two unit of packed RBCs as blood pressure was on the 70s. The patient also was started on IV Protonix. Nasogastric tube was placed, and in suctioning, he was noticed to have blood-tinged gastric contents and coffee-ground. As per patient's daughter, he was previously found to have gastric mass and colon mass. As per daughter, also it was malignant but he already had surgical intervention, and patient denies any abdominal pain, nausea. The patient had GI consultation done by and admitted for further management. Other review of systems is not obtainable. ALLERGIES: NO KNOWN ALLERGIES. HOME MEDICATIONS: As per MAR. SOCIAL HISTORY: Smoking history is unknown, and there is no history suggestive of alcohol or substance abuse. FAMILY HISTORY: Not known. PHYSICAL EXAMINATION: VITAL SIGNS: The patient was noticed in bed to be not in any cardiopulmonary distress with blood pressure came up to 120/60, and he was on Levophed. HEENT: Slightly pale mucosa of the conjunctivae. NECK: Supple. No JVD. No carotid bruit. No lymph node. No thyromegaly. CHEST/LUNGS: Bilateral symmetrical expansion. Good air exchange. No rales, no rhonchi. CARDIOVASCULAR SYSTEM: PMI not localized. S1, S2. No additional sounds. ABDOMEN: Decreased bowel sounds. No tenderness. No organomegaly. No masses. EXTREMITIES: No cyanosis, no clubbing, no edema. MARKET GARDENER: The patient is mildly lethargic but no complete neurological exam was done. ASSESSMENT: 1. Upper gastrointestinal bleeding with symptomatic anemia of acute blood loss. 2. End-stage renal disease, on hemodialysis. 3. Hypercholesterolemia. PLAN: We will adjust medications as needed. We will discuss the patient's condition with Dr. Cruz from Gastroenterology. We will monitor hemoglobin and hematocrit, and follow GI recommendations. Also, we asked for cardiology recommendations. [facility] MD Raghu cc:
[2017-07-28] MEDS: Multivitamin Vitamin B Complex (Nephro-Vite) Tab PO SCH (08:34)
[2017-07-28] MEDS ORDERED: Sodium Chloride 0.9% 500 ML IV ONE (09:17)
[2017-07-28] MEDS ORDERED: Etomidate 20 mg/10ml Inj IV ONE (09:19)
[2017-07-28 10:30] LABS: INR 1.7; PROTHROMBIN TIME 20.2 SECONDS (9.7-12.2)
--- NOTE | 2017-07-28 11:47 | CP.CCUPN ---
<Jerry Barajas - Last Filed: 07/28/17 12:20> CCU Subjective - Physician Review Subjective (Free Text): 07/28/17 11:44 Patient seen and examined at bedside EGD showed same ulcers but no active bleeding patient did have bloody BM dark with bright blood after EGD bleeding scan and surgery consult. 2 units PRBC and 2 units FFP CCU Objective - Vital Signs / Intake & Output Vital Signs (Last 4 hours): Vital Signs Temp Pulse Resp BP Pulse Ox 07/28/17 10:05 63 17 102/37 L 100 07/28/17 09:24 98.3 F 61 18 142/102 H 100 07/28/17 08:22 60 14 106/34 L 07/28/17 08:07 60 21 107/30 L 07/28/17 07:52 60 24 131/20 L Intake and Output (Last 8hrs): Intake & Output 07/27/17 07/28/17 07/28/17 22:59 06:59 14:59 Intake Total 532.0 560.0 351.5 Output Total 0 Balance 532.0 560.0 351.5 Weight 120 lb 4 oz Intake: IV 170 254 Intake, IV Amount 362.0 560.0 97.5 Right Distal Port Femoral 300 Right Hand 50 Right Medial Port Femoral 182.0 180.0 67.5 Right Proximal Port 130 80 30 Femoral Oral 0 Output: Urine 0 Urine, Voided 0 Other: # Voids Urine, Voided 0 # Bowel Movements 0 1 - Physical Exam Head: Positive for: Atraumatic, Normocephalic Pupils: Positive for: PERRL Extroacular Muscles: Positive for: EOMI Conjunctiva: Positive for: Normal Mouth: Positive for: Moist Mucous Membranes Neck: Positive for: Normal Range of Motion Respiratory/Chest: Positive for: Clear to Auscultation, Good Air Exchange. Negative for: Respiratory Distress, Accessory Muscle Use Cardiovascular: Positive for: Regular Rate and Rhythm, Normal S1, S2. Negative for: Murmurs Abdomen: Positive for: Normal Bowel Sounds. Negative for: Tenderness, Distention, Peritoneal Signs Neurological: Positive for: GCS=15 Skin: Positive for: Warm, Dry Psychiatric: Positive for: Alert, Oriented x 3 - Medications Active Medications: Active Medications Generic Name Dose Route Start Last Admin Trade Name Freq PRN Reason Stop Dose Admin Ascorbic Acid 500 mg 07/27/17 10:00 07/28/17 10:04 Vitamin C 500 Mg Tab PO Not Given DAILY [facility] Epoetin Javed 10,000 unit 07/27/17 10:00 07/27/17 13:41 Procrit IV 08/07/17 10:01 10,000 unit TTS RO Administration Ergocalciferol 1 cap 07/26/17 20:15 07/26/17 21:29 Drisdol 50,000 Intl Units Cap PO Not Given Q7D [facility] Heparin Sodium (Porcine) 3,900 units 07/27/17 14:00 07/27/17 14:32 Heparin IVP 3,900 units DIAL PRN Administration to lock HD cath Pantoprazole Sodium 80 mg/ 100 mls @ 10 mls/hr 07/27/17 08:00 07/28/17 06:54 Sodium Chloride IV 10 mls/hr .Q10H RO Administration 8 MG/HR Norepinephrine Bitartrate 4 mg 254 mls @ 15.24 mls/hr 07/27/17 11:39 10:05 / Sodium Chloride IV 6 mcg/min .[id number] PRN 22.86 mls/hr TITRATE PER MD ORDER Administration Protocol 4 MCG/MIN Phytonadione 10 mg 07/28/17 11:00 Vitamin K Inj SC 08/01/17 10:01 DAILY [facility] Sevelamer Carbonate 800 mg 07/27/17 08:00 07/28/17 08:34 Renvela PO Not Given BIDCC [facility] Vitamin B Complex/Vit C/Folic Acid 1 tab 07/27/17 08:00 07/28/17 08:34 Nephro-Xavier PO Not Given 0800 [facility] - Patient Studies Lab Studies: Lab Studies 07/28/17 07/28/17 07/28/17 Range/Units 10:15 06:19 06:17 WBC 16.1 H (4.8-10.8) K/uL RBC 2.50 L (4.40-5.90) Mil/uL Hgb 7.4 L (12.0-18.0) g/dL Hct 22.4 L (35.0-51.0) % MCV 89.9 (80.0-94.0) fL MCH 29.7 (27.0-31.0) pg MCHC 33.1 (33.0-37.0) g/dL RDW 17.7 H (11.5-14.5) % Plt Count 217 (130-400) K/uL MPV 9.8 (7.2-11.7) fL Neut % (Auto) 75.1 H (50.0-75.0) % Lymph % (Auto) 12.8 L (20.0-40.0) % Ceiba % (Auto) 10.3 H (0.0-10.0) % Eos % (Auto) 1.0 (0.0-4.0) % Baso % (Auto) 0.8 (0.0-2.0) % Neut # (Auto) 12.1 H (1.8-7.0) K/uL Lymph # (Auto) 2.1 (1.0-4.3) K/uL Ceiba # (Auto) 1.7 H (0.0-0.8) K/uL Eos # (Auto) 0.2 (0.0-0.7) K/uL Baso # (Auto) 0.1 (0.0-0.2) K/uL Neutrophils % (Manual) (50-75) % Band Neutrophils % (0-2) % Lymphocytes % (Manual) (20-40) % Monocytes % (Manual) (0-10) % Eosinophils % (Manual) (0-4) % Basophils % (Manual) (0-2) % Platelet Estimate (NORMAL) Large Platelets Giant Platelets Hypochromasia (manual) Poikilocytosis (manual Anisocytosis (manual) Tear Drop Cells Ovalocytes Melissa Cells PT 20.2 H (9.7-12.2) SECONDS INR 1.7 APTT 36 H (21-34) SECONDS Sodium 140 (132-148) mmol/L Potassium 5.2 (3.6-5.2) mmol/L Chloride 104 (98-107) mmol/L Carbon Dioxide 28 (22-30) mmol/L Anion Gap 13 (10-20) BUN 29 H (9-20) mg/dL Creatinine 3.1 H (0.8-1.5) mg/dL Est GFR ( Amer) 23 Est GFR (Non-Af Amer) 19 POC Glucose (mg/dL) (65-110) mg/dL Random Glucose 142 H (75-110) mg/dL Calcium 7.9 L (8.6-10.4) mg/dl Phosphorus 2.0 L Magnesium 1.8 Total Bilirubin 0.5 (0.2-1.3) mg/dL AST 18 (17-59) U/L ALT 20 L (21-72) U/L Alkaline Phosphatase 51 (38-126) U/L Total Protein 5.2 L (6.3-8.3) g/dL Albumin 2.4 L (3.5-5.0) g/dL Globulin 2.8 (2.2-3.9) gm/dL Albumin/Globulin Ratio 0.9 L (1.0-2.1) Hep Bs Antigen Blood Type Antibody Screen 07/27/17 07/27/17 07/27/17 Range/Units 23:43 22:14 21:20 WBC 16.3 H (4.8-10.8) K/uL RBC 2.86 L (4.40-5.90) Mil/uL Hgb 8.5 L (12.0-18.0) g/dL Hct 25.5 L (35.0-51.0) % MCV 89.0 (80.0-94.0) fL MCH 29.8 (27.0-31.0) pg MCHC 33.5 (33.0-37.0) g/dL RDW 17.2 H (11.5-14.5) % Plt Count 226 (130-400) K/uL MPV 8.9 (7.2-11.7) fL Neut % (Auto) 79.9 H (50.0-75.0) % Lymph % (Auto) 10.5 L (20.0-40.0) % Ceiba % (Auto) 7.9 (0.0-10.0) % Eos % (Auto) 0.6 (0.0-4.0) % Baso % (Auto) 1.1 (0.0-2.0) % Neut # (Auto) 13.1 H (1.8-7.0) K/uL Lymph # (Auto) 1.7 (1.0-4.3) K/uL Ceiba # (Auto) 1.3 H (0.0-0.8) K/uL Eos # (Auto) 0.1 (0.0-0.7) K/uL Baso # (Auto) 0.2 (0.0-0.2) K/uL Neutrophils % (Manual) (50-75) % Band Neutrophils % (0-2) % Lymphocytes % (Manual) (20-40) % Monocytes % (Manual) (0-10) % Eosinophils % (Manual) (0-4) % Basophils % (Manual) (0-2) % Platelet Estimate (NORMAL) Large Platelets Giant Platelets Hypochromasia (manual) Poikilocytosis (manual Anisocytosis (manual) Tear Drop Cells Ovalocytes Melissa Cells PT (9.7-12.2) SECONDS INR APTT (21-34) SECONDS Sodium (132-148) mmol/L Potassium (3.6-5.2) mmol/L Chloride (98-107) mmol/L Carbon Dioxide (22-30) mmol/L Anion Gap (10-20) BUN (9-20) mg/dL Creatinine (0.8-1.5) mg/dL Est GFR ( Amer) Est GFR (Non-Af Amer) POC Glucose (mg/dL) 159 H 162 H (65-110) mg/dL Random Glucose (75-110) mg/dL Calcium (8.6-10.4) mg/dl Phosphorus Magnesium Total Bilirubin (0.2-1.3) mg/dL AST (17-59) U/L ALT (21-72) U/L Alkaline Phosphatase (38-126) U/L Total Protein (6.3-8.3) g/dL Albumin (3.5-5.0) g/dL Globulin (2.2-3.9) gm/dL Albumin/Globulin Ratio (1.0-2.1) Hep Bs Antigen Blood Type Antibody Screen 07/27/17 07/27/17 07/27/17 Range/Units 17:48 14:16 14:16 WBC 24.1 H D (4.8-10.8) K/uL RBC 3.49 L (4.40-5.90) Mil/uL Hgb 10.3 L D (12.0-18.0) g/dL Hct 31.1 L (35.0-51.0) % MCV 89.1 D (80.0-94.0) fL MCH 29.5 (27.0-31.0) pg MCHC 33.1 (33.0-37.0) g/dL RDW 17.1 H (11.5-14.5) % Plt Count 312 (130-400) K/uL MPV 9.5 (7.2-11.7) fL Neut % (Auto) 85.7 H (50.0-75.0) % Lymph % (Auto) 8.6 L (20.0-40.0) % Ceiba % (Auto) 4.7 (0.0-10.0) % Eos % (Auto) 0.3 (0.0-4.0) % Baso % (Auto) 0.7 (0.0-2.0) % Neut # (Auto) 20.7 H (1.8-7.0) K/uL Lymph # (Auto) 2.1 (1.0-4.3) K/uL Ceiba # (Auto) 1.1 H (0.0-0.8) K/uL Eos # (Auto) 0.1 (0.0-0.7) K/uL Baso # (Auto) 0.2 (0.0-0.2) K/uL Neutrophils % (Manual) 79 H (50-75) % Band Neutrophils % 2 (0-2) % Lymphocytes % (Manual) 14 L (20-40) % Monocytes % (Manual) 3 (0-10) % Eosinophils % (Manual) 1 (0-4) % Basophils % (Manual) 1 (0-2) % Platelet Estimate Normal (NORMAL) Large Platelets Present Giant Platelets Present Hypochromasia (manual) Slight Poikilocytosis (manual Slight Anisocytosis (manual) Slight Tear Drop Cells Slight Ovalocytes Slight Melissa Cells Slight PT (9.7-12.2) SECONDS INR APTT (21-34) SECONDS Sodium 142 (132-148) mmol/L Potassium 3.0 L (3.6-5.2) mmol/L Chloride 100 (98-107) mmol/L Carbon Dioxide 28 (22-30) mmol/L Anion Gap 17 (10-20) BUN 13 (9-20) mg/dL Creatinine 1.3 (0.8-1.5) mg/dL Est GFR ( Amer) > 60 Est GFR (Non-Af Amer) 53 POC Glucose (mg/dL) 144 H (65-110) mg/dL Random Glucose 139 H (75-110) mg/dL Calcium 7.7 L (8.6-10.4) mg/dl Phosphorus 1.8 L Magnesium 1.7 Total Bilirubin 0.6 (0.2-1.3) mg/dL AST 30 (17-59) U/L ALT 17 L (21-72) U/L Alkaline Phosphatase 69 (38-126) U/L Total Protein 5.7 L (6.3-8.3) g/dL Albumin 2.9 L (3.5-5.0) g/dL Globulin 2.8 (2.2-3.9) gm/dL Albumin/Globulin Ratio 1.0 (1.0-2.1) Hep Bs Antigen Blood Type Antibody Screen 07/27/17 07/27/17 07/27/17 Range/Units 13:40 13:21 06:33 WBC (4.8-10.8) K/uL RBC (4.40-5.90) Mil/uL Hgb (12.0-18.0) g/dL Hct (35.0-51.0) % MCV (80.0-94.0) fL MCH (27.0-31.0) pg MCHC (33.0-37.0) g/dL RDW (11.5-14.5) % Plt Count (130-400) K/uL MPV (7.2-11.7) fL Neut % (Auto) (50.0-75.0) % Lymph % (Auto) (20.0-40.0) % Ceiba % (Auto) (0.0-10.0) % Eos % (Auto) (0.0-4.0) % Baso % (Auto) (0.0-2.0) % Neut # (Auto) (1.8-7.0) K/uL Lymph # (Auto) (1.0-4.3) K/uL Ceiba # (Auto) (0.0-0.8) K/uL Eos # (Auto) (0.0-0.7) K/uL Baso # (Auto) (0.0-0.2) K/uL Neutrophils % (Manual) (50-75) % Band Neutrophils % (0-2) % Lymphocytes % (Manual) (20-40) % Monocytes % (Manual) (0-10) % Eosinophils % (Manual) (0-4) % Basophils % (Manual) (0-2) % Platelet Estimate (NORMAL) Large Platelets Giant Platelets Hypochromasia (manual) Poikilocytosis (manual Anisocytosis (manual) Tear Drop Cells Ovalocytes Elton Cells PT (9.7-12.2) SECONDS INR APTT (21-34) SECONDS Sodium 138 (132-148) mmol/L Potassium 5.1 (3.6-5.2) mmol/L Chloride 99 (98-107) mmol/L Carbon Dioxide 23 (22-30) mmol/L Anion Gap 21 H (10-20) BUN 48 H (9-20) mg/dL Creatinine 3.8 H (0.8-1.5) mg/dL Est GFR ( Amer) 19 Est GFR (Non-Af Amer) 15 POC Glucose (mg/dL) 109 (65-110) mg/dL Random Glucose 141 H (75-110) mg/dL Calcium 8.3 L (8.6-10.4) mg/dl Phosphorus Cancelled Magnesium Cancelled Total Bilirubin 0.4 (0.2-1.3) mg/dL AST 33 (17-59) U/L ALT 16 L (21-72) U/L Alkaline Phosphatase 59 (38-126) U/L Total Protein 6.1 L (6.3-8.3) g/dL Albumin 3.0 L (3.5-5.0) g/dL Globulin 3.2 (2.2-3.9) gm/dL Albumin/Globulin Ratio 0.9 L (1.0-2.1) Hep Bs Antigen Negative Cancelled Blood Type Antibody Screen 07/26/17 Range/Units 18:51 WBC (4.8-10.8) K/uL RBC (4.40-5.90) Mil/uL Hgb (12.0-18.0) g/dL Hct (35.0-51.0) % MCV (80.0-94.0) fL MCH (27.0-31.0) pg MCHC (33.0-37.0) g/dL RDW (11.5-14.5) % Plt Count (130-400) K/uL MPV (7.2-11.7) fL Neut % (Auto) (50.0-75.0) % Lymph % (Auto) (20.0-40.0) % Ceiba % (Auto) (0.0-10.0) % Eos % (Auto) (0.0-4.0) % Baso % (Auto) (0.0-2.0) % Neut # (Auto) (1.8-7.0) K/uL Lymph # (Auto) (1.0-4.3) K/uL Ceiba # (Auto) (0.0-0.8) K/uL Eos # (Auto) (0.0-0.7) K/uL Baso # (Auto) (0.0-0.2) K/uL Neutrophils % (Manual) (50-75) % Band Neutrophils % (0-2) % Lymphocytes % (Manual) (20-40) % Monocytes % (Manual) (0-10) % Eosinophils % (Manual) (0-4) % Basophils % (Manual) (0-2) % Platelet Estimate (NORMAL) Large Platelets Giant Platelets Hypochromasia (manual) Poikilocytosis (manual Anisocytosis (manual) Tear Drop Cells Ovalocytes Melissa Cells PT (9.7-12.2) SECONDS INR APTT (21-34) SECONDS Sodium (132-148) mmol/L Potassium (3.6-5.2) mmol/L Chloride (98-107) mmol/L Carbon Dioxide (22-30) mmol/L Anion Gap (10-20) BUN (9-20) mg/dL Creatinine (0.8-1.5) mg/dL Est GFR ( Amer) Est GFR (Non-Af Amer) POC Glucose (mg/dL) (65-110) mg/dL Random Glucose (75-110) mg/dL Calcium (8.6-10.4) mg/dl Phosphorus Magnesium Total Bilirubin (0.2-1.3) mg/dL AST (17-59) U/L ALT (21-72) U/L Alkaline Phosphatase (38-126) U/L Total Protein (6.3-8.3) g/dL Albumin (3.5-5.0) g/dL Globulin (2.2-3.9) gm/dL Albumin/Globulin Ratio (1.0-2.1) Hep Bs Antigen Blood Type O POSITIVE Antibody Screen Negative Laboratory Results - last 24 hr 07/26/17 07/27/17 07/27/17 18:51 06:33 13:21 WBC RBC Hgb Hct MCV MCH MCHC RDW Plt Count MPV Neut % (Auto) Lymph % (Auto) Ceiba % (Auto) Eos % (Auto) Baso % (Auto) Neut # (Auto) Lymph # (Auto) Ceiba # (Auto) Eos # (Auto) Baso # (Auto) Neutrophils % (Manual) Band Neutrophils % Lymphocytes % (Manual) Monocytes % (Manual) Eosinophils % (Manual) Basophils % (Manual) Platelet Estimate Large Platelets Giant Platelets Hypochromasia (manual) Poikilocytosis (manual Anisocytosis (manual) Tear Drop Cells Ovalocytes Melissa Cells PT INR APTT Sodium 138 Potassium 5.1 Chloride 99 Carbon Dioxide 23 Anion Gap 21 H BUN 48 H Creatinine 3.8 H Est GFR ( Amer) 19 Est GFR (Non-Af Amer) 15 POC Glucose (mg/dL) 109 Random Glucose 141 H Calcium 8.3 L Phosphorus Cancelled Magnesium Cancelled Total Bilirubin 0.4 AST 33 ALT 16 L Alkaline Phosphatase 59 Total Protein 6.1 L Albumin 3.0 L Globulin 3.2 Albumin/Globulin Ratio 0.9 L Hep Bs Antigen Cancelled Blood Type O POSITIVE Antibody Screen Negative 07/27/17 07/27/17 07/27/17 13:40 14:16 14:16 WBC 24.1 H D RBC 3.49 L Hgb 10.3 L D Hct 31.1 L MCV 89.1 D MCH 29.5 MCHC 33.1 RDW 17.1 H Plt Count 312 MPV 9.5 Neut % (Auto) 85.7 H Lymph % (Auto) 8.6 L Ceiba % (Auto) 4.7 Eos % (Auto) 0.3 Baso % (Auto) 0.7 Neut # (Auto) 20.7 H Lymph # (Auto) 2.1 Ceiba # (Auto) 1.1 H Eos # (Auto) 0.1 Baso # (Auto) 0.2 Neutrophils % (Manual) 79 H Band Neutrophils % 2 Lymphocytes % (Manual) 14 L Monocytes % (Manual) 3 Eosinophils % (Manual) 1 Basophils % (Manual) 1 Platelet Estimate Normal Large Platelets Present Giant Platelets Present Hypochromasia (manual) Slight Poikilocytosis (manual Slight Anisocytosis (manual) Slight Tear Drop Cells Slight Ovalocytes Slight Elton Cells Slight PT INR APTT Sodium 142 Potassium 3.0 L Chloride 100 Carbon Dioxide 28 Anion Gap 17 BUN 13 Creatinine 1.3 Est GFR ( Amer) > 60 Est GFR (Non-Af Amer) 53 POC Glucose (mg/dL) Random Glucose 139 H Calcium 7.7 L Phosphorus 1.8 L Magnesium 1.7 Total Bilirubin 0.6 AST 30 ALT 17 L Alkaline Phosphatase 69 Total Protein 5.7 L Albumin 2.9 L Globulin 2.8 Albumin/Globulin Ratio 1.0 Hep Bs Antigen Negative Blood Type Antibody Screen 07/27/17 07/27/17 07/27/17 17:48 21:20 22:14 WBC 16.3 H RBC 2.86 L Hgb 8.5 L Hct 25.5 L MCV 89.0 MCH 29.8 MCHC 33.5 RDW 17.2 H Plt Count 226 MPV 8.9 Neut % (Auto) 79.9 H Lymph % (Auto) 10.5 L Ceiba % (Auto) 7.9 Eos % (Auto) 0.6 Baso % (Auto) 1.1 Neut # (Auto) 13.1 H Lymph # (Auto) 1.7 Ceiba # (Auto) 1.3 H Eos # (Auto) 0.1 Baso # (Auto) 0.2 Neutrophils % (Manual) Band Neutrophils % Lymphocytes % (Manual) Monocytes % (Manual) Eosinophils % (Manual) Basophils % (Manual) Platelet Estimate Large Platelets Giant Platelets Hypochromasia (manual) Poikilocytosis (manual Anisocytosis (manual) Tear Drop Cells Ovalocytes Elton Cells PT INR APTT Sodium Potassium Chloride Carbon Dioxide Anion Gap BUN Creatinine Est GFR ( Amer) Est GFR (Non-Af Amer) POC Glucose (mg/dL) 144 H 162 H Random Glucose Calcium Phosphorus Magnesium Total Bilirubin AST ALT Alkaline Phosphatase Total Protein Albumin Globulin Albumin/Globulin Ratio Hep Bs Antigen Blood Type Antibody Screen 07/27/17 07/28/17 07/28/17 23:43 06:17 06:19 WBC 16.1 H RBC 2.50 L Hgb 7.4 L Hct 22.4 L MCV 89.9 MCH 29.7 MCHC 33.1 RDW 17.7 H Plt Count 217 MPV 9.8 Neut % (Auto) 75.1 H Lymph % (Auto) 12.8 L Ceiba % (Auto) 10.3 H Eos % (Auto) 1.0 Baso % (Auto) 0.8 Neut # (Auto) 12.1 H Lymph # (Auto) 2.1 Ceiba # (Auto) 1.7 H Eos # (Auto) 0.2 Baso # (Auto) 0.1 Neutrophils % (Manual) Band Neutrophils % Lymphocytes % (Manual) Monocytes % (Manual) Eosinophils % (Manual) Basophils % (Manual) Platelet Estimate Large Platelets Giant Platelets Hypochromasia (manual) Poikilocytosis (manual Anisocytosis (manual) Tear Drop Cells Ovalocytes Melissa Cells PT INR APTT Sodium 140 Potassium 5.2 Chloride 104 Carbon Dioxide 28 Anion Gap 13 BUN 29 H Creatinine 3.1 H Est GFR ( Amer) 23 Est GFR (Non-Af Amer) 19 POC Glucose (mg/dL) 159 H Random Glucose 142 H Calcium 7.9 L Phosphorus 2.0 L Magnesium 1.8 Total Bilirubin 0.5 AST 18 ALT 20 L Alkaline Phosphatase 51 Total Protein 5.2 L Albumin 2.4 L Globulin 2.8 Albumin/Globulin Ratio 0.9 L Hep Bs Antigen Blood Type Antibody Screen 07/28/17 10:15 WBC RBC Hgb Hct MCV MCH MCHC RDW Plt Count MPV Neut % (Auto) Lymph % (Auto) Ceiba % (Auto) Eos % (Auto) Baso % (Auto) Neut # (Auto) Lymph # (Auto) Ceiba # (Auto) Eos # (Auto) Baso # (Auto) Neutrophils % (Manual) Band Neutrophils % Lymphocytes % (Manual) Monocytes % (Manual) Eosinophils % (Manual) Basophils % (Manual) Platelet Estimate Large Platelets Giant Platelets Hypochromasia (manual) Poikilocytosis (manual Anisocytosis (manual) Tear Drop Cells Ovalocytes Elton Cells PT 20.2 H INR 1.7 APTT 36 H Sodium Potassium Chloride Carbon Dioxide Anion Gap BUN Creatinine Est GFR ( Amer) Est GFR (Non-Af Amer) POC Glucose (mg/dL) Random Glucose Calcium Phosphorus Magnesium Total Bilirubin AST ALT Alkaline Phosphatase Total Protein Albumin Globulin Albumin/Globulin Ratio Hep Bs Antigen Blood Type Antibody Screen Fingerstick Blood Sugar Results: 109 Critical Care Progress Note - Nutrition Nutrition: Nutrition Category Date Time Status NPO Diet [DIET] Diets 07/28/17 Breakfast Active Assessment/Plan - Assessment and Plan (Free Text) Assessment: 81M UGIB/LGIB Plan: Neuro: No acute issues Cardio: History of Afib with pacemaker L. SC. Anticoag held 06/25 to GI bleed Pulm: No acute issues GI: UGIB - Had EGD showing 2 bleeding duodenal ulcer and one visible nonbleeding ulcer in the fundus. Patient was taken back for EGD on 07/28 due consistent drop in HgB. Ulcers no longer bleeding at that time. Patient continued to bleed evidenced by melanotic stool mixed with bright red blood. Patient sent for stat bleeding scan. Surgery consult ([place]). GI ([place]) * Transfused 2 units FFP, 2 units PRBC, started Vitamin k * Levophed * protonix drip * NPO Renal: ESRD on HD MWF. Permacath in R. [place]. 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 Nephro ([place]) * vitamin C * Procrit * Vit D * Vit B Endo: no acute issues ID: No acute issues PPX: SCD. On protonix drip <Trino Costa S - Last Filed: 07/28/17 16:10> CCU Objective - Vital Signs / Intake & Output Vital Signs (Last 4 hours): Vital Signs Temp Pulse Resp BP 07/28/17 14:27 98.8 F 106 H 19 126/55 L 07/28/17 13:57 98.5 F 107 H 16 118/50 L 07/28/17 13:42 98.8 F 106 H 20 131/48 L 07/28/17 13:27 98.4 F 108 H 17 119/51 L Intake and Output (Last 8hrs): Intake & Output 07/28/17 07/28/17 07/28/17 06:59 14:59 22:59 Intake Total 560.0 351.5 Output Total 0 Balance 560.0 351.5 Weight 120 lb 4 oz Intake: IV 254 Intake, IV Amount 560.0 97.5 Right Distal Port Femoral 300 Right Medial Port Femoral 180.0 67.5 Right Proximal Port 80 30 Femoral Oral 0 Blood Product 0 Red Blood Cells Cpd As1 0 Lr Unit [id number] Output: Urine 0 Urine, Voided 0 Other: # Bowel Movements 1 - Medications Active Medications: Active Medications Generic Name Dose Route Start Last Admin Trade Name Freq PRN Reason Stop Dose Admin Ascorbic Acid 500 mg 07/27/17 10:00 07/28/17 10:04 Vitamin C 500 Mg Tab PO Not Given DAILY RO Epoetin Javed 10,000 unit 07/27/17 10:00 07/27/17 13:41 Procrit IV 08/07/17 10:01 10,000 unit TTS RO Administration Ergocalciferol 1 cap 07/26/17 20:15 07/26/17 21:29 Drisdol 50,000 Intl Units Cap PO Not Given Q7D RO Heparin Sodium (Porcine) 3,900 units 07/27/17 14:00 07/27/17 14:32 Heparin IVP 3,900 units DIAL PRN Administration to lock HD cath Pantoprazole Sodium 80 mg/ 100 mls @ 10 mls/hr 07/27/17 08:00 07/28/17 06:54 Sodium Chloride IV 10 mls/hr .Q10H RO Administration 8 MG/HR Norepinephrine Bitartrate 4 mg 254 mls @ 15.24 mls/hr 07/27/17 11:39 10:05 / Sodium Chloride IV 6 mcg/min .[id number] PRN 22.86 mls/hr TITRATE PER MD ORDER Administration Protocol 4 MCG/MIN Phytonadione 10 mg 07/28/17 11:00 07/28/17 13:44 Vitamin K Inj SC 08/01/17 10:01 10 mg DAILY RO Administration Sevelamer Carbonate 800 mg 07/27/17 08:00 07/28/17 08:34 Renvela PO Not Given BIDCC [facility] Vitamin B Complex/Vit C/Folic Acid 1 tab 07/27/17 08:00 07/28/17 08:34 Nephro-Xavier PO Not Given 0800 [facility] - Patient Studies Lab Studies: Lab Studies 07/28/17 07/28/17 07/28/17 Range/Units 10:15 06:19 06:17 WBC 16.1 H (4.8-10.8) K/uL RBC 2.50 L (4.40-5.90) Mil/uL Hgb 7.4 L (12.0-18.0) g/dL Hct 22.4 L (35.0-51.0) % MCV 89.9 (80.0-94.0) fL MCH 29.7 (27.0-31.0) pg MCHC 33.1 (33.0-37.0) g/dL RDW 17.7 H (11.5-14.5) % Plt Count 217 (130-400) K/uL MPV 9.8 (7.2-11.7) fL Neut % (Auto) 75.1 H (50.0-75.0) % Lymph % (Auto) 12.8 L (20.0-40.0) % Ceiba % (Auto) 10.3 H (0.0-10.0) % Eos % (Auto) 1.0 (0.0-4.0) % Baso % (Auto) 0.8 (0.0-2.0) % Neut # (Auto) 12.1 H (1.8-7.0) K/uL Lymph # (Auto) 2.1 (1.0-4.3) K/uL Ceiba # (Auto) 1.7 H (0.0-0.8) K/uL Eos # (Auto) 0.2 (0.0-0.7) K/uL Baso # (Auto) 0.1 (0.0-0.2) K/uL PT 20.2 H (9.7-12.2) SECONDS INR 1.7 APTT 36 H (21-34) SECONDS Sodium 140 (132-148) mmol/L Potassium 5.2 (3.6-5.2) mmol/L Chloride 104 (98-107) mmol/L Carbon Dioxide 28 (22-30) mmol/L Anion Gap 13 (10-20) BUN 29 H (9-20) mg/dL Creatinine 3.1 H (0.8-1.5) mg/dL Est GFR ( Amer) 23 Est GFR (Non-Af Amer) 19 POC Glucose (mg/dL) (65-110) mg/dL Random Glucose 142 H (75-110) mg/dL Calcium 7.9 L (8.6-10.4) mg/dl Phosphorus 2.0 L (2.5-4.5) mg/dL Magnesium 1.8 (1.6-2.3) mg/dL Total Bilirubin 0.5 (0.2-1.3) mg/dL AST 18 (17-59) U/L ALT 20 L (21-72) U/L Alkaline Phosphatase 51 (38-126) U/L Total Protein 5.2 L (6.3-8.3) g/dL Albumin 2.4 L (3.5-5.0) g/dL Globulin 2.8 (2.2-3.9) gm/dL Albumin/Globulin Ratio 0.9 L (1.0-2.1) Blood Type Antibody Screen 07/27/17 07/27/17 07/27/17 Range/Units 23:43 22:14 21:20 WBC 16.3 H (4.8-10.8) K/uL RBC 2.86 L (4.40-5.90) Mil/uL Hgb 8.5 L (12.0-18.0) g/dL Hct 25.5 L (35.0-51.0) % MCV 89.0 (80.0-94.0) fL MCH 29.8 (27.0-31.0) pg MCHC 33.5 (33.0-37.0) g/dL RDW 17.2 H (11.5-14.5) % Plt Count 226 (130-400) K/uL MPV 8.9 (7.2-11.7) fL Neut % (Auto) 79.9 H (50.0-75.0) % Lymph % (Auto) 10.5 L (20.0-40.0) % Ceiba % (Auto) 7.9 (0.0-10.0) % Eos % (Auto) 0.6 (0.0-4.0) % Baso % (Auto) 1.1 (0.0-2.0) % Neut # (Auto) 13.1 H (1.8-7.0) K/uL Lymph # (Auto) 1.7 (1.0-4.3) K/uL Ceiba # (Auto) 1.3 H (0.0-0.8) K/uL Eos # (Auto) 0.1 (0.0-0.7) K/uL Baso # (Auto) 0.2 (0.0-0.2) K/uL PT (9.7-12.2) SECONDS INR APTT (21-34) SECONDS Sodium (132-148) mmol/L Potassium (3.6-5.2) mmol/L Chloride (98-107) mmol/L Carbon Dioxide (22-30) mmol/L Anion Gap (10-20) BUN (9-20) mg/dL Creatinine (0.8-1.5) mg/dL Est GFR ( Amer) Est GFR (Non-Af Amer) POC Glucose (mg/dL) 159 H 162 H (65-110) mg/dL Random Glucose (75-110) mg/dL Calcium (8.6-10.4) mg/dl Phosphorus (2.5-4.5) mg/dL Magnesium (1.6-2.3) mg/dL Total Bilirubin (0.2-1.3) mg/dL AST (17-59) U/L ALT (21-72) U/L Alkaline Phosphatase (38-126) U/L Total Protein (6.3-8.3) g/dL Albumin (3.5-5.0) g/dL Globulin (2.2-3.9) gm/dL Albumin/Globulin Ratio (1.0-2.1) Blood Type Antibody Screen 07/27/17 07/26/17 Range/Units 17:48 18:51 WBC (4.8-10.8) K/uL RBC (4.40-5.90) Mil/uL Hgb (12.0-18.0) g/dL Hct (35.0-51.0) % MCV (80.0-94.0) fL MCH (27.0-31.0) pg MCHC (33.0-37.0) g/dL RDW (11.5-14.5) % Plt Count (130-400) K/uL MPV (7.2-11.7) fL Neut % (Auto) (50.0-75.0) % Lymph % (Auto) (20.0-40.0) % [place] % (Auto) (0.0-10.0) % Eos % (Auto) (0.0-4.0) % Baso % (Auto) (0.0-2.0) % Neut # (Auto) (1.8-7.0) K/uL Lymph # (Auto) (1.0-4.3) K/uL [place] # (Auto) (0.0-0.8) K/uL Eos # (Auto) (0.0-0.7) K/uL Baso # (Auto) (0.0-0.2) K/uL PT (9.7-12.2) SECONDS INR APTT (21-34) SECONDS Sodium (132-148) mmol/L Potassium (3.6-5.2) mmol/L Chloride (98-107) mmol/L Carbon Dioxide (22-30) mmol/L Anion Gap (10-20) BUN (9-20) mg/dL Creatinine (0.8-1.5) mg/dL Est GFR ( Amer) Est GFR (Non-Af Amer) POC Glucose (mg/dL) 144 H (65-110) mg/dL Random Glucose (75-110) mg/dL Calcium (8.6-10.4) mg/dl Phosphorus (2.5-4.5) mg/dL Magnesium (1.6-2.3) mg/dL Total Bilirubin (0.2-1.3) mg/dL AST (17-59) U/L ALT (21-72) U/L Alkaline Phosphatase (38-126) U/L Total Protein (6.3-8.3) g/dL Albumin (3.5-5.0) g/dL Globulin (2.2-3.9) gm/dL Albumin/Globulin Ratio (1.0-2.1) Blood Type O POSITIVE Antibody Screen Negative Laboratory Results - last 24 hr 07/26/17 07/27/17 07/27/17 18:51 17:48 21:20 WBC 16.3 H RBC 2.86 L Hgb 8.5 L Hct 25.5 L MCV 89.0 MCH 29.8 MCHC 33.5 RDW 17.2 H Plt Count 226 MPV 8.9 Neut % (Auto) 79.9 H Lymph % (Auto) 10.5 L [place] % (Auto) 7.9 Eos % (Auto) 0.6 Baso % (Auto) 1.1 Neut # (Auto) 13.1 H Lymph # (Auto) 1.7 [place] # (Auto) 1.3 H Eos # (Auto) 0.1 Baso # (Auto) 0.2 PT INR APTT Sodium Potassium Chloride Carbon Dioxide Anion Gap BUN Creatinine Est GFR ( Amer) Est GFR (Non-Af Amer) POC Glucose (mg/dL) 144 H Random Glucose Calcium Phosphorus Magnesium Total Bilirubin AST ALT Alkaline Phosphatase Total Protein Albumin Globulin Albumin/Globulin Ratio Blood Type O POSITIVE Antibody Screen Negative 07/27/17 07/27/17 07/28/17 22:14 23:43 06:17 WBC 16.1 H RBC 2.50 L Hgb 7.4 L Hct 22.4 L MCV 89.9 MCH 29.7 MCHC 33.1 RDW 17.7 H Plt Count 217 MPV 9.8 Neut % (Auto) 75.1 H Lymph % (Auto) 12.8 L [place] % (Auto) 10.3 H Eos % (Auto) 1.0 Baso % (Auto) 0.8 Neut # (Auto) 12.1 H Lymph # (Auto) 2.1 [place] # (Auto) 1.7 H Eos # (Auto) 0.2 Baso # (Auto) 0.1 PT INR APTT Sodium Potassium Chloride Carbon Dioxide Anion Gap BUN Creatinine Est GFR ( Amer) Est GFR (Non-Af Amer) POC Glucose (mg/dL) 162 H 159 H Random Glucose Calcium Phosphorus Magnesium Total Bilirubin AST ALT Alkaline Phosphatase Total Protein Albumin Globulin Albumin/Globulin Ratio Blood Type Antibody Screen 07/28/17 07/28/17 06:19 10:15 WBC RBC Hgb Hct MCV MCH MCHC RDW Plt Count MPV Neut % (Auto) Lymph % (Auto) [place] % (Auto) Eos % (Auto) Baso % (Auto) Neut # (Auto) Lymph # (Auto) [place] # (Auto) Eos # (Auto) Baso # (Auto) PT 20.2 H INR 1.7 APTT 36 H Sodium 140 Potassium 5.2 Chloride 104 Carbon Dioxide 28 Anion Gap 13 BUN 29 H Creatinine 3.1 H Est GFR ( Amer) 23 Est GFR (Non-Af Amer) 19 POC Glucose (mg/dL) Random Glucose 142 H Calcium 7.9 L Phosphorus 2.0 L Magnesium 1.8 Total Bilirubin 0.5 AST 18 ALT 20 L Alkaline Phosphatase 51 Total Protein 5.2 L Albumin 2.4 L Globulin 2.8 Albumin/Globulin Ratio 0.9 L Blood Type Antibody Screen Critical Care Progress Note - Nutrition Nutrition: Nutrition Category Date Time Status NPO Diet [DIET] Diets 07/28/17 Breakfast Active Attending/Attestation - Attestation I have personally seen and examined this patient.: Yes I have fully participated in the care of the patient.: Yes I have reviewed all pertinent clinical information: Yes Notes (Text): 07/28/17 16:09 Patient seen and examined in the intensive care unit. Case discussed with house staff Patient continued to have rectal bleed Status post EGD with no active bleeding ulcer Seen by surgery Transfuse packed RBCs and FFP Follow-up CBC
[2017-07-28] MEDS: Phytonadione 10 mg/ml Inj (Adult) SC SCH (13:44)
[2017-07-28] MEDS ORDERED: Iodixanol 320 MG/ML 100 ML BOTTLE IV ONE (14:35)
--- NOTE | 2017-07-28 14:42 | NM ---
PROCEDURE: Nuclear medicine gastrointestinal bleeding scan. HISTORY: melena, rectal bleeding COMPARISON: None available. TECHNIQUE: 4 cc of patient blood was withdrawn and mixed with 21 mCi of technetium ultra tagged. Images of the abdomen and pelvis were obtained in the anterior and posterior projection at 1 min intervals over a period of 45 min. FINDINGS: Abnormal radionuclide identified in the right hemicolon with ventral migration of radionuclide to the transverse colon. Physiologic activity was seen in the heart, liver, spleen and blood vessels. IMPRESSION: Positive GI bleeding scan. The origin of the bleed likely resides in the cecum/ascending colon. Expected transit can be seen of radionuclide within the lumen of right fazal colon to the midline on the delayed images.
--- NOTE | 2017-07-28 15:44 | CP.PCM.CON ---
History of Present Illness - History of Present Illness History of Present Illness: General Surgery: Dr Clemente Pt S&E in ICU. Pt is an 81M with PMH of HTN, afib, ESRD. Pt has unknown history of abdominal surgery. States it was done at [facility], but does not know what surgeon. Presumably was a colon surgery. Pt presented to ED with lower GI bleed, noted from single melanotic movement. Pt taken for EGD and colonoscopy. Found to have 2 bleeding ulcers in the duodenum which were injected with epinephrine. Pt continued to remain hypotensive post-procedure so EGD was repeated, no evidence of bleeding. Attempted colonoscopy but unable to see due to stool and bright red blood. Pt sent for bleeding scan which showed ? of bleeding in cecum/ascending colon. CTA does not demonstrate any bleeding and there is no right colon identified on imaging. Review of Systems - Review of Systems All systems: reviewed and no additional remarkable complaints except (as per hpi ) Past Patient History - Past Medical History & Family History Past Medical History?: Yes - Past Social History Smoking Status: Never Smoked - CARDIAC Hx Atrial Fibrillation: Yes Hx Hypercholesterolemia: Yes Hx Hypertension: Yes - PULMONARY Hx Respiratory Disorders: Yes (Resp arrest 2013) - NEUROLOGICAL Hx Neurological Disorder: No - HEENT Hx HEENT Problems: Yes - RENAL Hx Chronic Kidney Disease: Yes (hemodialysis) - ENDOCRINE/METABOLIC Hx Endocrine Disorders: Yes Hx Diabetes Mellitus Type 2: Yes - HEMATOLOGICAL/ONCOLOGICAL Hx Anemia: Yes - INTEGUMENTARY Hx Dermatological Problems: Yes Other/Comment: 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 - MUSCULOSKELETAL/RHEUMATOLOGICAL Hx Musculoskeletal Disorders: No Hx Falls: No - GASTROINTESTINAL Hx Gastrointestinal Disorders: Yes Other/Comment: Gastric CA - GENITOURINARY/GYNECOLOGICAL Hx Genitourinary Disorders: Yes (UTI) - PSYCHIATRIC Hx Anxiety: Yes Hx Substance Use: No - SURGICAL HISTORY Hx Surgeries: Yes Other/Comment: PEG was removed PERMA CATH, Tracheostomy, colon sx, stomach tumor removal - ANESTHESIA Hx Anesthesia: Yes Hx Anesthesia Reactions: No Meds Allergies/Adverse Reactions: Allergies Allergy/AdvReac Type Severity Reaction Status Date / Time acetaminophen [From Tylenol] Allergy Verified 07/26/17 16:55 cefazolin [From Ancef] Allergy Verified 07/26/17 17:02 nitrofurantoin Allergy Verified 07/26/17 17:02 [From Macrobid] Sulfa (Sulfonamide Allergy Verified 07/26/17 17:02 Antibiotics) - Medications Medications: Current Medications Ascorbic Acid (Vitamin C 500 Mg Tab) 500 mg PO DAILY [facility] Last Admin: 07/28/17 10:04 Dose: Not Given Epoetin Javed (Procrit) 10,000 unit IV TTS [facility] Stop: 08/07/17 10:01 Last Admin: 07/27/17 13:41 Dose: 10,000 unit Ergocalciferol (Drisdol 50,000 Intl Units Cap) 1 cap PO Q7D [facility] Last Admin: 07/26/17 21:29 Dose: Not Given Heparin Sodium (Porcine) (Heparin) 3,900 units IVP DIAL PRN PRN Reason: to lock HD cath Last Admin: 07/27/17 14:32 Dose: 3,900 units Pantoprazole Sodium 80 mg/ (Sodium Chloride) 100 mls @ 10 mls/hr IV .Q10H RO PRN Reason: 8 MG/HR Last Admin: 07/28/17 06:54 Dose: 10 mls/hr Norepinephrine Bitartrate 4 mg (/ Sodium Chloride) 254 mls @ 15.24 mls/hr IV .[id number] PRN; Protocol; 4 MCG/MIN PRN Reason: TITRATE PER MD ORDER Last Admin: 07/28/17 10:05 Dose: 6 mcg/min, 22.86 mls/hr Phytonadione (Vitamin K Inj) 10 mg SC DAILY [facility] Stop: 08/01/17 10:01 Last Admin: 07/28/17 13:44 Dose: 10 mg Sevelamer Carbonate (Renvela) 800 mg PO BIDCC [facility] Last Admin: 07/28/17 08:34 Dose: Not Given Vitamin B Complex/Vit C/Folic Acid (Nephro-Xavier) 1 tab PO 0800 [facility] Last Admin: 07/28/17 08:34 Dose: Not Given Physical Exam - Constitutional Appears: Non-toxic, Confused - ENT Exam ENT Exam: Mucous Membranes Dry - Respiratory Exam Respiratory Exam: absent: Accessory Muscle Use, Respiratory Distress - Cardiovascular Exam Cardiovascular Exam: Tachycardia. absent: REGULAR RHYTHM - GI/Abdominal Exam GI & Abdominal Exam: Soft. absent: Distended, Firm, Guarding, Hernia, Tenderness Additional comments: midline laparotomy scar well-healed - Extremities Exam Extremities exam: Negative for: pedal edema - Neurological Exam Neurological exam: Alert - Psychiatric Exam Psychiatric exam: Normal Affect, Normal Mood - Skin Skin Exam: Normal Color Results - Vital Signs Recent Vital Signs: Last Vital Signs Temp 98.8 F 07/28/17 14:27 Pulse 106 H 07/28/17 14:27 Resp 19 07/28/17 14:27 BP 126/55 L 07/28/17 14:27 Pulse Ox 100 07/28/17 10:05 - Labs Result Diagrams: 07/28/17 06:17 07/28/17 06:19 Labs: Laboratory Results - last 24 hr 07/26/17 07/27/17 07/27/17 18:51 17:48 21:20 WBC 16.3 H RBC 2.86 L Hgb 8.5 L Hct 25.5 L MCV 89.0 MCH 29.8 MCHC 33.5 RDW 17.2 H Plt Count 226 MPV 8.9 Neut % (Auto) 79.9 H Lymph % (Auto) 10.5 L [place] % (Auto) 7.9 Eos % (Auto) 0.6 Baso % (Auto) 1.1 Neut # (Auto) 13.1 H Lymph # (Auto) 1.7 [place] # (Auto) 1.3 H Eos # (Auto) 0.1 Baso # (Auto) 0.2 PT INR APTT Sodium Potassium Chloride Carbon Dioxide Anion Gap BUN Creatinine Est GFR ( Amer) Est GFR (Non-Af Amer) POC Glucose (mg/dL) 144 H Random Glucose Calcium Phosphorus Magnesium Total Bilirubin AST ALT Alkaline Phosphatase Total Protein Albumin Globulin Albumin/Globulin Ratio Blood Type O POSITIVE Antibody Screen Negative 07/27/17 07/27/17 07/28/17 22:14 23:43 06:17 WBC 16.1 H RBC 2.50 L Hgb 7.4 L Hct 22.4 L MCV 89.9 MCH 29.7 MCHC 33.1 RDW 17.7 H Plt Count 217 MPV 9.8 Neut % (Auto) 75.1 H Lymph % (Auto) 12.8 L [place] % (Auto) 10.3 H Eos % (Auto) 1.0 Baso % (Auto) 0.8 Neut # (Auto) 12.1 H Lymph # (Auto) 2.1 [place] # (Auto) 1.7 H Eos # (Auto) 0.2 Baso # (Auto) 0.1 PT INR APTT Sodium Potassium Chloride Carbon Dioxide Anion Gap BUN Creatinine Est GFR ( Amer) Est GFR (Non-Af Amer) POC Glucose (mg/dL) 162 H 159 H Random Glucose Calcium Phosphorus Magnesium Total Bilirubin AST ALT Alkaline Phosphatase Total Protein Albumin Globulin Albumin/Globulin Ratio Blood Type Antibody Screen 07/28/17 07/28/17 06:19 10:15 WBC RBC Hgb Hct MCV MCH MCHC RDW Plt Count MPV Neut % (Auto) Lymph % (Auto) [place] % (Auto) Eos % (Auto) Baso % (Auto) Neut # (Auto) Lymph # (Auto) [place] # (Auto) Eos # (Auto) Baso # (Auto) PT 20.2 H INR 1.7 APTT 36 H Sodium 140 Potassium 5.2 Chloride 104 Carbon Dioxide 28 Anion Gap 13 BUN 29 H Creatinine 3.1 H Est GFR ( Amer) 23 Est GFR (Non-Af Amer) 19 POC Glucose (mg/dL) Random Glucose 142 H Calcium 7.9 L Phosphorus 2.0 L Magnesium 1.8 Total Bilirubin 0.5 AST 18 ALT 20 L Alkaline Phosphatase 51 Total Protein 5.2 L Albumin 2.4 L Globulin 2.8 Albumin/Globulin Ratio 0.9 L Blood Type Antibody Screen Assessment & Plan - Assessment and Plan (Free Text) Assessment: 81M with lower GI bleed Plan: cont to transfuse PRN pt s/p 3 units pRBc monitor H/H no immediate surgical intervention planned but we will follow closely d/w Dr Chyna Garnica, PGY3
--- NOTE | 2017-07-28 15:45 | CT ---
PROCEDURE: CT Angiography abdomen and pelvis with Contrast HISTORY: UGIB, LGIB COMPARISON: None. TECHNIQUE: Technique: CT angiography of the abdomen and pelvis performed in the arterial phase of enhancement. Coronal and sagittal reformats, and well as rotating MIP images of the vessels generated at the workstation. Intravenous contrast dose: 100 mL Visipaque 320 Radiation dose: Total exam DLP = 523.3 mGy-cm. This CT exam was performed using one or more of the following dose reduction techniques: Automated exposure control, adjustment of the mA and/or kV according to patient size, and/or use of iterative reconstruction technique. FINDINGS: CT ANGIOGRAPHY: Calcific atherosclerosis. No aneurysm. Occlusion of left internal iliac artery. No evidence of active contrast extravasation. NON-ANGIOGRAPHIC ASPECT OF THE EXAM: LOWER THORAX: Bibasilar atelectasis/ scarring. No focal consolidation or pleural effusion. Partially imaged cardiac device leads. LIVER: Unremarkable. No gross lesion or ductal dilatation. GALLBLADDER AND BILE DUCTS: Unremarkable. PANCREAS: Unremarkable. No gross lesion or ductal dilatation. SPLEEN: Unremarkable. ADRENALS: Unremarkable. No mass. KIDNEYS AND URETERS: Bilateral renal atrophy. No hydronephrosis. No solid mass. STOMACH AND BOWEL: Multiple areas of prior bowel resection. No obstruction. No gross mural thickening. APPENDIX: Not visualized. PERITONEUM: Unremarkable. No free fluid. No free air. LYMPH NODES: Unremarkable. No enlarged lymph nodes. BLADDER: Unremarkable. REPRODUCTIVE: Unremarkable. BONES: Multilevel degenerative changes. Obliteration of the L3-4 disc space, similar to prior. Similar L5-S1 degenerative changes. OTHER FINDINGS: None. IMPRESSION: Multiple areas of prior bowel resection. No CT angiographic evidence of active contrast extravasation. Additional nonacute findings as above.
--- NOTE | 2017-07-28 17:15 | CP.PCM.PN ---
Subjective - Date & Time of Evaluation Date of Evaluation: 07/28/17 Time of Evaluation: 15:00 - Subjective Subjective: SEEN ON RENAL F/U IN ICU FULLY A@O .. DENIES ABDO PAIN ... NO N@V ON HD M W F ALL PREVIOUS EMR REVIEWED Objective - Vital Signs/Intake and Output Vital Signs (last 24 hours): Temp Pulse Resp BP Pulse Ox 98.4 F 100 H 18 122/48 L 100 07/28/17 17:06 07/28/17 17:06 07/28/17 17:06 07/28/17 17:06 07/28/17 10:05 Intake and Output: 07/28/17 07/28/17 06:59 18:59 Intake Total 840.4 776.5 Output Total 0 Balance 840.4 776.5 - Medications Medications: Current Medications Ascorbic Acid (Vitamin C 500 Mg Tab) 500 mg PO DAILY [facility] Last Admin: 07/28/17 10:04 Dose: Not Given Epoetin Javed (Procrit) 10,000 unit IV TTS [facility] Stop: 08/07/17 10:01 Last Admin: 07/27/17 13:41 Dose: 10,000 unit Ergocalciferol (Drisdol 50,000 Intl Units Cap) 1 cap PO Q7D [facility] Last Admin: 07/26/17 21:29 Dose: Not Given Heparin Sodium (Porcine) (Heparin) 3,900 units IVP DIAL PRN PRN Reason: to lock HD cath Last Admin: 07/27/17 14:32 Dose: 3,900 units Pantoprazole Sodium 80 mg/ (Sodium Chloride) 100 mls @ 10 mls/hr IV .Q10H RO PRN Reason: 8 MG/HR Last Admin: 07/28/17 06:54 Dose: 10 mls/hr Norepinephrine Bitartrate 4 mg (/ Sodium Chloride) 254 mls @ 15.24 mls/hr IV .[id number] PRN; Protocol; 4 MCG/MIN PRN Reason: TITRATE PER MD ORDER Last Admin: 07/28/17 10:05 Dose: 6 mcg/min, 22.86 mls/hr Phytonadione (Vitamin K Inj) 10 mg SC DAILY [facility] Stop: 08/01/17 10:01 Last Admin: 07/28/17 13:44 Dose: 10 mg Vitamin B Complex/Vit C/Folic Acid (Nephro-Xavier) 1 tab PO 0800 [facility] Last Admin: 07/28/17 08:34 Dose: Not Given - Labs Labs: 07/28/17 06:17 07/28/17 06:19 PT 20.2 SECONDS (9.7-12.2) H 07/28/17 10:15 INR 1.7 07/28/17 10:15 APTT 36 SECONDS (21-34) H 07/28/17 10:15 Assessment and Plan - Assessment and Plan (Free Text) Assessment: ESRD ON HD M W F ANEMIA OF CKD +GIB HYPOTENSION PROBABLY 2/2 GIB P : C/O SUPPORTIVE CARE C/O PRESENT MANAGEMENT TRANSFUSE FOR LOW H/H D/C RENVELA PHOS IS RUNNING LOW
[2017-07-28] MEDS ORDERED: Peg-Electrolyte Oral Soln 4L (Golytely) PO ONE (18:15)
--- NOTE | 2017-07-28 20:58 | PN ---
DATE: This is a correction on what was mentioned yesterday in my consult that the patient had open heart surgery 2 years ago and as the history was taken from the patient's daughter and going back to the patient's daughter with the fact that there was no evidence of sternotomy on the chest x-ray, the patient meant the pacemaker placement synonymous with open heart surgery; however, the patient never had bypass surgery. SUBJECTIVE: The patient is currently in ICU, lethargic and still on nor-epinephrine at 6 mcg per minute. No reports of ventricular arrhythmia. PHYSICAL EXAMINATION: VITAL SIGNS: Blood pressure 126/65, heart rate 106, temperature 98.8, respirations 19. HEENT: Pale conjunctivae. CHEST: Bilateral rhonchi. HEART: S1, S2. Regular. EXTREMITIES: Trace edema. LABORATORY DATA: Today's hemoglobin and hematocrit are 7.4 and 22.4, white count 16.1, platelet count 117,000. SMA-7: Sodium 140, potassium 5.2, chloride 104, CO2 of 28, glucose 142, BUN 29, creatinine 3.1. Hepatitis B surface antigen is negative. CT angiography was performed, but the report is still pending. GI bleed nuclear scan revealed positive GI bleeding scan. The origin of the bleed likely resides in the cecum/ascending colon. Expected transit can be seen of the radionuclide within the lumen of the right hemicolon to the midline of the delayed images. Preliminary echocardiography study report is consistent with moderate left ventricular hypertrophy with preserved systolic function, mild aortic insufficiency. ASSESSMENT: 1. Gastrointestinal bleeding. The source of bleeding is most likely a cecum or the ascending colon. 2. Status post a single chamber ventricular pacemaker placement. 3. Anemia. 4. Hypotension. 5. Endstage renal disease, on hemodialysis. RECOMMENDATIONS: Continue current norepinephrine infusion. Continue IV Protonix infusion. Continue IV Procrit 3 times a week. No further cardiac workup is indicated. I will follow CT angio results. Miah Gallagher MD
[2017-07-29 00:08] LABS: BASO # 0.1 K/uL (0.0-0.2); EOS # 0.1 K/uL (0.0-0.7); NRBC % 0.2 % (0.0-2.0); RBC 1.95 Mil/uL (4.40-5.90); WHITE BLOOD COUNT 7.6 K/uL (4.8-10.8)
[2017-07-29 00:16] LABS: BASO % 0.7 % (0.0-2.0); EOS % 1.2 % (0.0-4.0); LYMPH # 0.9 K/uL (1.0-4.3); LYMPH % 11.3 % (20.0-40.0); MEAN CORPUSCULAR HEMOGLOBIN 29.9 pg (27.0-31.0); MEAN PLATELET VOLUME 9.3 fL (7.2-11.7); MONO # 0.6 K/uL (0.0-0.8); MONO % 7.5 % (0.0-10.0); NEUT % 79.3 % (50.0-75.0); RED CELL DISTRIBUTION WIDTH 16.1 % (11.5-14.5)
[2017-07-29 00:19] LABS: HEMOGLOBIN 5.8 g/dL (12.0-18.0)
--- NOTE | 2017-07-29 03:30 | PN ---
DATE: 07/28/2017 SUBJECTIVE: The patient is seen today 07/28/2017. He had large melanotic bowel movement with hemoglobin dropping from 8.5 to 7.4. The patient had a bleeding scan that was positive, but the CT angiogram was not showing any bleeding. The patient had a surgical consultation done by Dr. Clemente and no surgery was offered at this point. PHYSICAL EXAMINATION: VITAL SIGNS: Blood pressure 123/47, temperature 98.2, respiratory rate 19, and pulse 90. HEENT: Pale mucosa of the conjunctivae. NECK: Supple. No JVD. No carotid bruits. No lymph node. No thyromegaly. CHEST AND LUNGS: Bilateral symmetrical expansion. Good air exchange. No rales, no rhonchi. CARDIOVASCULAR SYSTEM: PMI not localized. S1, S2. No additional sounds. ABDOMEN: Normoactive bowel sounds. No tenderness. No organomegaly. No masses. EXTREMITIES: No cyanosis, no clubbing, no edema. CASE SPECIALIST: Alert and awake and moves all extremities equally. ASSESSMENT: 1. Gastrointestinal bleeding. 2. Anemia of acute blood loss. 3. End-stage renal disease, on hemodialysis. PLAN: I discussed the patient's condition with Dr. Hooper, Gastroenterology. We will monitor hemoglobin and hematocrit and follow GI and surgical recommendations. Continue intensive care unit care. Jody Krishnamurthy MD
[2017-07-29] MEDS: Pantoprazole 80 MG in Sodium Chloride 0.9% 100 ML IV SCH ×4 (06:21→23:00)
[2017-07-29 06:38] LABS: BASO % 0.4 % (0.0-2.0); EOS # 0.1 K/uL (0.0-0.7); EOS % 1.2 % (0.0-4.0); HEMOGLOBIN 7.2 g/dL (12.0-18.0); LYMPH % 11.6 % (20.0-40.0); MEAN CELL VOLUME 88.6 fL (80.0-94.0); MEAN CORPUSCULAR HEMOGLOBIN 31.2 pg (27.0-31.0); MEAN CORPUSCULAR HGB CONC 35.1 g/dL (33.0-37.0); MEAN PLATELET VOLUME 9.4 fL (7.2-11.7); MONO # 0.6 K/uL (0.0-0.8); MONO % 7.6 % (0.0-10.0); NEUT # 6.6 K/uL (1.8-7.0); NEUT % 79.2 % (50.0-75.0); NRBC % 0.5 % (0.0-2.0); RBC 2.3 Mil/uL (4.40-5.90); RED CELL DISTRIBUTION WIDTH 16.4 % (11.5-14.5); WHITE BLOOD COUNT 8.4 K/uL (4.8-10.8)
[2017-07-29 06:43] LABS: ALBUMIN 2.5 g/dL (3.5-5.0); CALCIUM 8.1 mg/dl (8.6-10.4)
[2017-07-29 06:52] LABS: INR 1.2; PROTHROMBIN TIME 13.8 SECONDS (9.7-12.2)
[2017-07-29] MEDS: Multivitamin Vitamin B Complex (Nephro-Vite) Tab PO SCH (07:46)
[2017-07-29] MEDS ORDERED: Peg-Electrolyte Oral Soln 4L (Golytely) PO ONE (08:30)
--- NOTE | 2017-07-29 08:49 | CP.PCM.PN ---
Subjective - Date & Time of Evaluation Date of Evaluation: 07/29/17 Time of Evaluation: 08:48 - Subjective Subjective: General Surgery: Dr Clemente Pt S&E in ICU. Remains on pressors. Still awake and alert. Pt had another melanotic bowel movement overnight. Transfused 2 more units pRBC. Remains unclear where pt is bleeding from given contradictory imaging. Currently plans for repeat colonoscopy vs IR angio/intervention Objective - Vital Signs/Intake and Output Vital Signs (last 24 hours): Temp Pulse Resp BP Pulse Ox 98.1 F 108 H 20 135/54 L 99 07/29/17 04:00 07/29/17 07:30 07/29/17 07:30 07/29/17 07:30 07/29/17 07:30 Intake and Output: 07/29/17 07/29/17 06:59 18:59 Intake Total 1341.2 10 Output Total 0 Balance 1341.2 10 - Medications Medications: Current Medications Ascorbic Acid (Vitamin C 500 Mg Tab) 500 mg PO DAILY [facility] Last Admin: 07/28/17 10:04 Dose: Not Given Epoetin Javed (Procrit) 10,000 unit IV TTS [facility] Stop: 08/07/17 10:01 Last Admin: 07/27/17 13:41 Dose: 10,000 unit Ergocalciferol (Drisdol 50,000 Intl Units Cap) 1 cap PO Q7D [facility] Last Admin: 07/26/17 21:29 Dose: Not Given Heparin Sodium (Porcine) (Heparin) 3,900 units IVP DIAL PRN PRN Reason: to lock HD cath Last Admin: 07/27/17 14:32 Dose: 3,900 units Pantoprazole Sodium 80 mg/ (Sodium Chloride) 100 mls @ 10 mls/hr IV .Q10H RO PRN Reason: 8 MG/HR Last Admin: 07/29/17 06:21 Dose: 10 mls/hr Norepinephrine Bitartrate 4 mg (/ Sodium Chloride) 254 mls @ 15.24 mls/hr IV .[id number] PRN; Protocol; 4 MCG/MIN PRN Reason: TITRATE PER MD ORDER Last Titration: 07/28/17 21:19 Dose: 0 mcg/min, 0 mls/hr Phytonadione (Vitamin K Inj) 10 mg SC DAILY [facility] Stop: 08/01/17 10:01 Last Admin: 07/28/17 13:44 Dose: 10 mg Vitamin B Complex/Vit C/Folic Acid (Nephro-Xavier) 1 tab PO 0800 [facility] Last Admin: 07/29/17 07:46 Dose: Not Given - Labs Labs: 07/29/17 06:28 07/29/17 06:26 PT 13.8 SECONDS (9.7-12.2) H D 07/29/17 06:32 INR 1.2 D 07/29/17 06:32 APTT 32 SECONDS (21-34) 07/29/17 06:32 - Constitutional Appears: No Acute Distress - Respiratory Exam Respiratory Exam: absent: Accessory Muscle Use, Respiratory Distress - Cardiovascular Exam Cardiovascular Exam: Tachycardia. absent: REGULAR RHYTHM - GI/Abdominal Exam GI & Abdominal Exam: Firm. absent: Distended, Guarding, Rigid, Tenderness - Neurological Exam Neurological Exam: Alert, Awake Assessment and Plan - Assessment and Plan (Free Text) Assessment: 81M w/ GI bleed Plan: pt for repeat colonoscopy around 11 will f/u closely if unable to localize bleed IR may be the next step surgery not really an option until bleeding source is located d/w Dr Chyna Garnica, PGY3
--- NOTE | 2017-07-29 09:07 | PCM.IRP ---
History of Present Illness - History of Present Illness History of Present Illness: IR requested to evaluate Pt Cerice for mesenteric angiogram for GI bleed. Bleeding scan and CT angiogram reviewed. Angiogram is not a good diagnostic study for GI bleed. If the bleed is not significant, the angiogram will be negative. Recommend repeating CT angiogram during active bleeding to localize the bleed. CT angiogram performed when the Pt is not bleeding, will be negative. Once the bleed localized, embolization can be performed. Will continue to follow. Objective - Vital Signs/Intake and Output Vital Signs (last 24 hours): Vital Signs - 24 hr 07/28/17 07/28/17 07/28/17 09:24 10:05 13:27 Temperature 98.3 F 98.4 F Pulse Rate 61 63 108 H Respiratory 18 17 17 Rate Blood Pressure 142/102 H 102/37 L 119/51 L O2 Sat by Pulse 100 100 Oximetry 07/28/17 07/28/17 07/28/17 13:42 13:57 14:22 Temperature 98.8 F 98.5 F Pulse Rate 106 H 107 H 106 H Respiratory 20 16 19 Rate Blood Pressure 131/48 L 118/50 L 126/55 L O2 Sat by Pulse 100 Oximetry 07/28/17 07/28/17 07/28/17 14:27 15:06 15:07 Temperature 98.8 F Pulse Rate 106 H 101 H Respiratory 19 17 Rate Blood Pressure 126/55 L 131/47 L 137/47 L O2 Sat by Pulse 100 Oximetry 07/28/17 07/28/17 07/28/17 15:23 15:37 15:52 Temperature Pulse Rate 106 H 100 H 99 H Respiratory 11 L 24 17 Rate Blood Pressure 137/45 L 121/44 L 114/41 L O2 Sat by Pulse 99 100 98 Oximetry 07/28/17 07/28/17 07/28/17 16:00 16:07 16:22 Temperature 98.5 F Pulse Rate 104 H 102 H Respiratory 15 20 Rate Blood Pressure 115/36 L 133/46 L O2 Sat by Pulse 95 98 Oximetry 07/28/17 07/28/17 07/28/17 16:38 16:52 17:06 Temperature 98.4 F Pulse Rate 105 H 98 H 100 H Respiratory 10 L 14 18 Rate Blood Pressure 121/45 L 122/48 L 122/48 L O2 Sat by Pulse 97 98 Oximetry 07/28/17 07/28/17 07/28/17 17:07 17:22 17:37 Temperature Pulse Rate 99 H 95 H 102 H Respiratory 18 17 15 Rate Blood Pressure 113/50 L 127/49 L 132/48 L O2 Sat by Pulse 98 97 98 Oximetry 07/28/17 07/28/17 07/28/17 17:52 18:07 18:22 Temperature Pulse Rate 101 H 99 H 96 H Respiratory 14 20 18 Rate Blood Pressure 117/47 L 132/62 138/53 L O2 Sat by Pulse 97 97 98 Oximetry 07/28/17 07/28/17 07/28/17 18:38 19:22 20:00 Temperature 98.5 F Pulse Rate 104 H 101 H Respiratory 13 17 Rate Blood Pressure 125/52 L 127/52 L O2 Sat by Pulse 96 97 97 Oximetry 07/28/17 07/28/17 07/28/17 20:38 21:00 21:08 Temperature Pulse Rate 98 H 98 H 98 H Respiratory 19 14 17 Rate Blood Pressure 123/47 L 137/51 L O2 Sat by Pulse 98 97 97 Oximetry 07/28/17 07/28/17 07/28/17 21:38 22:00 22:08 Temperature Pulse Rate 98 H 101 H 98 H Respiratory 17 12 18 Rate Blood Pressure 110/41 L 121/47 L O2 Sat by Pulse 98 98 84 L Oximetry 07/28/17 07/28/17 07/28/17 22:38 23:00 23:08 Temperature Pulse Rate 100 H 98 H 97 H Respiratory 17 17 12 Rate Blood Pressure 118/47 L 126/48 L O2 Sat by Pulse 96 95 97 Oximetry 07/28/17 07/29/17 07/29/17 23:38 00:00 00:08 Temperature 98.6 F Pulse Rate 97 H 94 H 98 H Respiratory 17 17 19 Rate Blood Pressure 121/44 L 126/46 L O2 Sat by Pulse 97 97 99 Oximetry 07/29/17 07/29/17 07/29/17 00:27 01:00 01:15 Temperature 98.6 F 98.2 F Pulse Rate 104 H 107 H 99 H Respiratory 14 13 18 Rate Blood Pressure 129/51 L 106/56 L O2 Sat by Pulse 98 97 Oximetry 07/29/17 07/29/17 07/29/17 01:17 01:30 02:00 Temperature 98.5 F 98.7 F Pulse Rate 99 H 94 H 104 H Respiratory 18 18 17 Rate Blood Pressure 106/46 L 104/51 L 126/48 L O2 Sat by Pulse 96 97 98 Oximetry 07/29/17 07/29/17 07/29/17 02:01 02:31 03:00 Temperature 98.1 F Pulse Rate 97 H 98 H 100 H Respiratory 19 15 18 Rate Blood Pressure 126/48 L 133/54 L 140/59 L O2 Sat by Pulse 95 95 95 Oximetry 07/29/17 07/29/17 07/29/17 03:30 03:31 04:00 Temperature 98.1 F 98.1 F Pulse Rate 100 H 102 H 97 H Respiratory 17 14 19 Rate Blood Pressure 140/59 L 134/55 L 139/63 O2 Sat by Pulse 93 L 96 Oximetry 07/29/17 07/29/17 07/29/17 04:30 05:00 05:30 Temperature Pulse Rate 99 H 100 H 101 H Respiratory 16 18 14 Rate Blood Pressure 141/63 144/59 L 144/61 O2 Sat by Pulse 99 99 99 Oximetry 07/29/17 07/29/17 07/29/17 06:00 06:30 07:00 Temperature Pulse Rate 104 H 96 H 106 H Respiratory 14 13 12 Rate Blood Pressure 143/60 134/53 L 136/58 L O2 Sat by Pulse 97 99 100 Oximetry 07/29/17 07:30 Temperature Pulse Rate 108 H Respiratory 20 Rate Blood Pressure 135/54 L O2 Sat by Pulse 99 Oximetry Intake and Output (last 12 hours): Intake & Output 07/28/17 07/29/17 07/29/17 18:59 06:59 18:59 Intake Total 1493.0 1341.2 10 Output Total 0 0 Balance 1493.0 1341.2 10 Weight 119 lb 9 oz Intake: IV 358 80.7 Intake, IV Amount 710.0 982.5 10 Right Distal Port Femoral 350 840 Right Medial Port Femoral 240.0 22.5 Right Proximal Port 120 120 10 Femoral Oral 0 Blood Product 325 278 Apheresis Rbc Cp2d As3 Lr 278 1st Unit [id number] Red Blood Cells Cpd As1 325 Lr Unit [id number] Other 100 Red Blood Cells Cpd As1 100 Lr Unit [id number] Output: Urine 0 0 Urine, Voided 0 0 Other: # Bowel Movements 1 1 - Medications Medications: Current Medications Ascorbic Acid (Vitamin C 500 Mg Tab) 500 mg PO DAILY [facility] Last Admin: 07/28/17 10:04 Dose: Not Given Epoetin Javed (Procrit) 10,000 unit IV TTS [facility] Stop: 08/07/17 10:01 Last Admin: 07/27/17 13:41 Dose: 10,000 unit Ergocalciferol (Drisdol 50,000 Intl Units Cap) 1 cap PO Q7D [facility] Last Admin: 07/26/17 21:29 Dose: Not Given Heparin Sodium (Porcine) (Heparin) 3,900 units IVP DIAL PRN PRN Reason: to lock HD cath Last Admin: 07/27/17 14:32 Dose: 3,900 units Pantoprazole Sodium 80 mg/ (Sodium Chloride) 100 mls @ 10 mls/hr IV .Q10H RO PRN Reason: 8 MG/HR Last Admin: 07/29/17 06:21 Dose: 10 mls/hr Norepinephrine Bitartrate 4 mg (/ Sodium Chloride) 254 mls @ 15.24 mls/hr IV .[id number] PRN; Protocol; 4 MCG/MIN PRN Reason: TITRATE PER MD ORDER Last Titration: 07/28/17 21:19 Dose: 0 mcg/min, 0 mls/hr Phytonadione (Vitamin K Inj) 10 mg SC DAILY [facility] Stop: 08/01/17 10:01 Last Admin: 07/28/17 13:44 Dose: 10 mg Vitamin B Complex/Vit C/Folic Acid (Nephro-Xavier) 1 tab PO 0800 [facility] Last Admin: 07/29/17 07:46 Dose: Not Given - Labs Labs (last 24 hours): Laboratory Results - last 24 hr 07/26/17 07/28/17 07/28/17 18:51 10:15 17:30 WBC RBC Hgb Hct MCV MCH MCHC RDW Plt Count MPV Neut % (Auto) Lymph % (Auto) [place] % (Auto) Eos % (Auto) Baso % (Auto) Neut # (Auto) Lymph # (Auto) [place] # (Auto) Eos # (Auto) Baso # (Auto) PT 20.2 H INR 1.7 APTT 36 H Sodium Potassium Chloride Carbon Dioxide Anion Gap BUN Creatinine Est GFR ( Amer) Est GFR (Non-Af Amer) POC Glucose (mg/dL) 120 H Random Glucose Calcium Phosphorus Magnesium Total Bilirubin AST ALT Alkaline Phosphatase Total Protein Albumin Globulin Albumin/Globulin Ratio Blood Type O POSITIVE Antibody Screen Negative 07/29/17 07/29/17 07/29/17 00:12 06:26 06:28 WBC 7.6 D 8.4 RBC 1.95 L 2.30 L Hgb 5.8 L* 7.2 L Hct 17.2 L 20.4 L MCV 88.0 88.6 MCH 29.9 31.2 H MCHC 34.0 35.1 RDW 16.1 H 16.4 H Plt Count 105 L D 108 L MPV 9.3 9.4 Neut % (Auto) 79.3 H 79.2 H Lymph % (Auto) 11.3 L 11.6 L [place] % (Auto) 7.5 7.6 Eos % (Auto) 1.2 1.2 Baso % (Auto) 0.7 0.4 Neut # (Auto) 6.0 6.6 Lymph # (Auto) 0.9 L 1.0 [place] # (Auto) 0.6 0.6 Eos # (Auto) 0.1 0.1 Baso # (Auto) 0.1 0.0 PT INR APTT Sodium 143 Potassium 4.7 Chloride 106 Carbon Dioxide 28 Anion Gap 14 BUN 39 H Creatinine 4.0 H Est GFR ( Amer) 17 Est GFR (Non-Af Amer) 14 POC Glucose (mg/dL) Random Glucose 81 Calcium 8.1 L Phosphorus 1.5 L Magnesium 1.8 Total Bilirubin 0.5 AST 27 ALT 21 Alkaline Phosphatase 50 Total Protein 4.9 L Albumin 2.5 L Globulin 2.5 Albumin/Globulin Ratio 1.0 Blood Type Antibody Screen 07/29/17 06:32 WBC RBC Hgb Hct MCV MCH MCHC RDW Plt Count MPV Neut % (Auto) Lymph % (Auto) [place] % (Auto) Eos % (Auto) Baso % (Auto) Neut # (Auto) Lymph # (Auto) [place] # (Auto) Eos # (Auto) Baso # (Auto) PT 13.8 H D INR 1.2 D APTT 32 Sodium Potassium Chloride Carbon Dioxide Anion Gap BUN Creatinine Est GFR ( Amer) Est GFR (Non-Af Amer) POC Glucose (mg/dL) Random Glucose Calcium Phosphorus Magnesium Total Bilirubin AST ALT Alkaline Phosphatase Total Protein Albumin Globulin Albumin/Globulin Ratio Blood Type Antibody Screen
--- NOTE | 2017-07-29 09:12 | RAD ---
HISTORY: eval NGT placement COMPARISON: No prior. FINDINGS: LUNGS: No active pulmonary disease. PLEURA: No significant pleural effusion identified, no pneumothorax apparent. CARDIOVASCULAR: Probable minimal left ventricular enlargement -similar appearance. Atherosclerotic aortic arch calcifications -present as before. . The right-sided unipolar permanent pacing device is similar. OSSEOUS STRUCTURES: Currently right shoulder arthrosis noted thoracic spondylosis. Prior study also showed left shoulder arthrosis VISUALIZED UPPER ABDOMEN: Normal. OTHER FINDINGS: The left-sided dialysis catheter terminates in the right atrium -as before. Interval insertion of an NG tube - tip in stomach. IMPRESSION: Interval insertion-NG tube -tip satisfactory in stomach.
--- NOTE | 2017-07-29 09:43 | CP.PCM.PN ---
Subjective - Date & Time of Evaluation Date of Evaluation: 07/29/17 Time of Evaluation: 09:41 - Subjective Subjective: GI Progress note - Nadege Clay PGY2 Patient seen and examined at bedside this morning. Per nursing, patient continued to have blood bowel movements overnight and received an additional 1u PRBC yesterday. Difficulty placing NGT yesterday. Patient denied abdominal pain , nausea, vomiting. 12point ROS as per above otherwise negative. Objective - Vital Signs/Intake and Output Vital Signs (last 24 hours): Temp Pulse Resp BP Pulse Ox 98.1 F 108 H 20 135/54 L 99 07/29/17 04:00 07/29/17 07:30 07/29/17 07:30 07/29/17 07:30 07/29/17 07:30 Intake and Output: 07/29/17 07/29/17 06:59 18:59 Intake Total 1341.2 30 Output Total 0 Balance 1341.2 30 - Medications Medications: Current Medications Ascorbic Acid (Vitamin C 500 Mg Tab) 500 mg PO DAILY [facility] Last Admin: 07/28/17 10:04 Dose: Not Given Epoetin Javed (Procrit) 10,000 unit IV TTS [facility] Stop: 08/07/17 10:01 Last Admin: 07/27/17 13:41 Dose: 10,000 unit Ergocalciferol (Drisdol 50,000 Intl Units Cap) 1 cap PO Q7D [facility] Last Admin: 07/26/17 21:29 Dose: Not Given Heparin Sodium (Porcine) (Heparin) 3,900 units IVP DIAL PRN PRN Reason: to lock HD cath Last Admin: 07/27/17 14:32 Dose: 3,900 units Pantoprazole Sodium 80 mg/ (Sodium Chloride) 100 mls @ 10 mls/hr IV .Q10H RO PRN Reason: 8 MG/HR Last Admin: 07/29/17 06:21 Dose: 10 mls/hr Norepinephrine Bitartrate 4 mg (/ Sodium Chloride) 254 mls @ 15.24 mls/hr IV .[id number] PRN; Protocol; 4 MCG/MIN PRN Reason: TITRATE PER MD ORDER Last Titration: 07/28/17 21:19 Dose: 0 mcg/min, 0 mls/hr Phytonadione (Vitamin K Inj) 10 mg SC DAILY [facility] Stop: 08/01/17 10:01 Last Admin: 07/28/17 13:44 Dose: 10 mg Vitamin B Complex/Vit C/Folic Acid (Nephro-Xavier) 1 tab PO 0800 RO Last Admin: 07/29/17 07:46 Dose: Not Given - Labs Labs: 07/29/17 06:28 07/29/17 06:26 PT 13.8 SECONDS (9.7-12.2) H D 07/29/17 06:32 INR 1.2 D 07/29/17 06:32 APTT 32 SECONDS (21-34) 07/29/17 06:32 - Constitutional Appears: Chronically Ill - Head Exam Head Exam: ATRAUMATIC, NORMOCEPHALIC - Eye Exam Eye Exam: EOMI Pupil Exam: PERRL - Respiratory Exam Respiratory Exam: absent: Rales, Rhonchi, Wheezes - Cardiovascular Exam Cardiovascular Exam: +S1, +S2. absent: Gallop, Rubs - GI/Abdominal Exam GI & Abdominal Exam: Soft. absent: Distended, Firm, Guarding, Rigid, Tenderness - Neurological Exam Neurological Exam: Alert, Awake, Oriented x3 - Psychiatric Exam Psychiatric exam: Normal Affect, Normal Mood - Skin Skin Exam: Dry, Intact, Normal Color, Warm Assessment and Plan - Assessment and Plan (Free Text) Assessment: 81yo male with history of anemia, anxiety, atrial fibrillation, diabetes, HTN, hypercholesterolemia, End Stage Renal Disease on hemodialysis who presented to the ER with anemia and melena. 1. Melena 2. ESRD on hemodialysis 3. PVD Plan: -NPO -NGT placed by GI and confirmed by auscultation and CXR -Rapid sequence purge initiated in anticipation of colonoscopy this morning -Prontonix 80mg bolus and 8mg/hr drip -Monitor H/H and transfuse as indicated -Bleeding scan and CTA reviewed -Recommend follow up surgery/IR recommendations Patient seen and case discussed/reviewed with attending, Dr. Hooper
[2017-07-29] MEDS ORDERED: Etomidate 20 mg/10ml Inj IV ONE (12:01)
[2017-07-29] MEDS ORDERED: Phenylephrine 10 mg/ml Inj ONE (12:01)
[2017-07-29] MEDS ORDERED: Propofol 10 mg/ml Inj (20 ML) ONE ×2 (12:02→13:41)
[2017-07-29] MEDS ORDERED: Sodium Chloride 0.9% 500 ML IV ONE (12:17)
--- NOTE | 2017-07-29 12:58 | CP.CCUPN ---
<Jerry Barajas - Last Filed: 07/29/17 12:52> CCU Subjective - Physician Review Subjective (Free Text): 07/28/17 11:44 Patient seen and examined at bedside EGD showed same ulcers but no active bleeding patient did have bloody BM dark with bright blood after EGD bleeding scan and surgery consult. 2 units PRBC and 2 units FFP 07/29/17 12:52 patient seen and examined GI to do colonoscopy today IR says to repeat CTA when actively bleeding for embolization Will follow GI after scope CCU Objective - Vital Signs / Intake & Output Vital Signs (Last 4 hours): Vital Signs Temp Pulse Resp BP Pulse Ox 07/29/17 12:00 98.6 F 99 H 17 147/57 L 100 07/29/17 11:30 102 H 19 137/57 L 98 07/29/17 11:01 99 H 16 141/53 L 97 07/29/17 10:30 97 H 153/55 H 99 07/29/17 10:00 102 H 16 135/60 100 07/29/17 09:31 95 H 17 138/53 L 97 07/29/17 09:00 97 H 19 134/54 L 99 Intake and Output (Last 8hrs): Intake & Output 07/28/17 07/29/17 07/29/17 22:59 06:59 14:59 Intake Total 1642.2 608 4050 Output Total 0 Balance 1642.2 608 4050 Weight 119 lb 9 oz Intake: IV 184.7 Intake, IV Amount 1032.5 330 50 Right Distal Port Femoral 870 250 Right Medial Port Femoral 82.5 Right Proximal Port 80 80 50 Femoral Tube Feeding 4000 Blood Product 325 278 Apheresis Rbc Cp2d As3 Lr 278 1st Unit [id number] Red Blood Cells Cpd As1 325 Lr Unit [id number] Other 100 Red Blood Cells Cpd As1 100 Lr Unit [id number] Output: Urine 0 Urine, Voided 0 Other: # Bowel Movements 1 1 2 - Physical Exam Head: Positive for: Atraumatic, Normocephalic Pupils: Positive for: PERRL Extroacular Muscles: Positive for: EOMI Conjunctiva: Positive for: Normal Mouth: Positive for: Moist Mucous Membranes Neck: Positive for: Normal Range of Motion Respiratory/Chest: Positive for: Clear to Auscultation, Good Air Exchange. Negative for: Respiratory Distress, Accessory Muscle Use Cardiovascular: Positive for: Regular Rate and Rhythm, Normal S1, S2. Negative for: Murmurs Abdomen: Positive for: Normal Bowel Sounds. Negative for: Tenderness, Distention, Peritoneal Signs Neurological: Positive for: GCS=15 Skin: Positive for: Warm, Dry Psychiatric: Positive for: Alert, Oriented x 3 - Medications Active Medications: Active Medications Generic Name Dose Route Start Last Admin Trade Name Freq PRN Reason Stop Dose Admin Ascorbic Acid 500 mg 07/27/17 10:00 07/29/17 11:12 Vitamin C 500 Mg Tab PO Not Given DAILY RO Epoetin Javed 10,000 unit 07/27/17 10:00 07/27/17 13:41 Procrit IV 08/07/17 10:01 10,000 unit TTS RO Administration Ergocalciferol 1 cap 07/26/17 20:15 07/26/17 21:29 Drisdol 50,000 Intl Units Cap PO Not Given Q7D RO Heparin Sodium (Porcine) 3,900 units 07/27/17 14:00 07/27/17 14:32 Heparin IVP 3,900 units DIAL PRN Administration to lock HD cath Pantoprazole Sodium 80 mg/ 100 mls @ 10 mls/hr 07/27/17 08:00 07/29/17 11:13 Sodium Chloride IV 10 mls/hr .Q10H RO Administration 8 MG/HR Norepinephrine Bitartrate 4 mg 254 mls @ 15.24 mls/hr 07/27/17 11:39 21:19 / Sodium Chloride IV 0 mcg/min .[id number] PRN 0 mls/hr TITRATE PER MD ORDER Titration Protocol 4 MCG/MIN Mupirocin 0 gm 07/29/17 11:15 Bactroban Ointment TOP BID RO Phytonadione 10 mg 07/28/17 11:00 07/28/17 13:44 Vitamin K Inj SC 08/01/17 10:01 10 mg DAILY RO Administration Vitamin B Complex/Vit C/Folic Acid 1 tab 07/27/17 08:00 07/29/17 07:46 Nephro-Xavier PO Not Given 0800 RO - Patient Studies Lab Studies: Microbiology Studies 07/27/17 07:51 MRSA Culture (Admit) - Final Naris MRSA NOT DETECTED Lab Studies 07/29/17 07/29/17 07/29/17 Range/Units 08:51 06:32 06:28 WBC 8.4 (4.8-10.8) K/uL RBC 2.30 L (4.40-5.90) Mil/uL Hgb 7.2 L (12.0-18.0) g/dL Hct 20.4 L (35.0-51.0) % MCV 88.6 (80.0-94.0) fL MCH 31.2 H (27.0-31.0) pg MCHC 35.1 (33.0-37.0) g/dL RDW 16.4 H (11.5-14.5) % Plt Count 108 L (130-400) K/uL MPV 9.4 (7.2-11.7) fL Neut % (Auto) 79.2 H (50.0-75.0) % Lymph % (Auto) 11.6 L (20.0-40.0) % Keith % (Auto) 7.6 (0.0-10.0) % Eos % (Auto) 1.2 (0.0-4.0) % Baso % (Auto) 0.4 (0.0-2.0) % Neut # (Auto) 6.6 (1.8-7.0) K/uL Lymph # (Auto) 1.0 (1.0-4.3) K/uL Keith # (Auto) 0.6 (0.0-0.8) K/uL Eos # (Auto) 0.1 (0.0-0.7) K/uL Baso # (Auto) 0.0 (0.0-0.2) K/uL PT 13.8 H D (9.7-12.2) SECONDS INR 1.2 D APTT 32 (21-34) SECONDS Sodium (132-148) mmol/L Potassium (3.6-5.2) mmol/L Chloride (98-107) mmol/L Carbon Dioxide (22-30) mmol/L Anion Gap (10-20) BUN (9-20) mg/dL Creatinine (0.8-1.5) mg/dL Est GFR ( Amer) Est GFR (Non-Af Amer) POC Glucose (mg/dL) (65-110) mg/dL Random Glucose (75-110) mg/dL Calcium (8.6-10.4) mg/dl Phosphorus (2.5-4.5) mg/dL Magnesium (1.6-2.3) mg/dL Total Bilirubin (0.2-1.3) mg/dL AST (17-59) U/L ALT (21-72) U/L Alkaline Phosphatase (38-126) U/L Total Protein (6.3-8.3) g/dL Albumin (3.5-5.0) g/dL Globulin (2.2-3.9) gm/dL Albumin/Globulin Ratio (1.0-2.1) Blood Type O POSITIVE Antibody Screen Negative 07/29/17 07/29/17 07/28/17 Range/Units 06:26 00:12 17:30 WBC 7.6 D (4.8-10.8) K/uL RBC 1.95 L (4.40-5.90) Mil/uL Hgb 5.8 L* (12.0-18.0) g/dL Hct 17.2 L (35.0-51.0) % MCV 88.0 (80.0-94.0) fL MCH 29.9 (27.0-31.0) pg MCHC 34.0 (33.0-37.0) g/dL RDW 16.1 H (11.5-14.5) % Plt Count 105 L D (130-400) K/uL MPV 9.3 (7.2-11.7) fL Neut % (Auto) 79.3 H (50.0-75.0) % Lymph % (Auto) 11.3 L (20.0-40.0) % Keith % (Auto) 7.5 (0.0-10.0) % Eos % (Auto) 1.2 (0.0-4.0) % Baso % (Auto) 0.7 (0.0-2.0) % Neut # (Auto) 6.0 (1.8-7.0) K/uL Lymph # (Auto) 0.9 L (1.0-4.3) K/uL Keith # (Auto) 0.6 (0.0-0.8) K/uL Eos # (Auto) 0.1 (0.0-0.7) K/uL Baso # (Auto) 0.1 (0.0-0.2) K/uL PT (9.7-12.2) SECONDS INR APTT (21-34) SECONDS Sodium 143 (132-148) mmol/L Potassium 4.7 (3.6-5.2) mmol/L Chloride 106 (98-107) mmol/L Carbon Dioxide 28 (22-30) mmol/L Anion Gap 14 (10-20) BUN 39 H (9-20) mg/dL Creatinine 4.0 H (0.8-1.5) mg/dL Est GFR ( Amer) 17 Est GFR (Non-Af Amer) 14 POC Glucose (mg/dL) 120 H (65-110) mg/dL Random Glucose 81 (75-110) mg/dL Calcium 8.1 L (8.6-10.4) mg/dl Phosphorus 1.5 L (2.5-4.5) mg/dL Magnesium 1.8 (1.6-2.3) mg/dL Total Bilirubin 0.5 (0.2-1.3) mg/dL AST 27 (17-59) U/L ALT 21 (21-72) U/L Alkaline Phosphatase 50 (38-126) U/L Total Protein 4.9 L (6.3-8.3) g/dL Albumin 2.5 L (3.5-5.0) g/dL Globulin 2.5 (2.2-3.9) gm/dL Albumin/Globulin Ratio 1.0 (1.0-2.1) Blood Type Antibody Screen 07/26/17 Range/Units 18:51 WBC (4.8-10.8) K/uL RBC (4.40-5.90) Mil/uL Hgb (12.0-18.0) g/dL Hct (35.0-51.0) % MCV (80.0-94.0) fL MCH (27.0-31.0) pg MCHC (33.0-37.0) g/dL RDW (11.5-14.5) % Plt Count (130-400) K/uL MPV (7.2-11.7) fL Neut % (Auto) (50.0-75.0) % Lymph % (Auto) (20.0-40.0) % Keith % (Auto) (0.0-10.0) % Eos % (Auto) (0.0-4.0) % Baso % (Auto) (0.0-2.0) % Neut # (Auto) (1.8-7.0) K/uL Lymph # (Auto) (1.0-4.3) K/uL Keith # (Auto) (0.0-0.8) K/uL Eos # (Auto) (0.0-0.7) K/uL Baso # (Auto) (0.0-0.2) K/uL PT (9.7-12.2) SECONDS INR APTT (21-34) SECONDS Sodium (132-148) mmol/L Potassium (3.6-5.2) mmol/L Chloride (98-107) mmol/L Carbon Dioxide (22-30) mmol/L Anion Gap (10-20) BUN (9-20) mg/dL Creatinine (0.8-1.5) mg/dL Est GFR ( Amer) Est GFR (Non-Af Amer) POC Glucose (mg/dL) (65-110) mg/dL Random Glucose (75-110) mg/dL Calcium (8.6-10.4) mg/dl Phosphorus (2.5-4.5) mg/dL Magnesium (1.6-2.3) mg/dL Total Bilirubin (0.2-1.3) mg/dL AST (17-59) U/L ALT (21-72) U/L Alkaline Phosphatase (38-126) U/L Total Protein (6.3-8.3) g/dL Albumin (3.5-5.0) g/dL Globulin (2.2-3.9) gm/dL Albumin/Globulin Ratio (1.0-2.1) Blood Type O POSITIVE Antibody Screen Negative Laboratory Results - last 24 hr 07/26/17 07/28/17 07/29/17 18:51 17:30 00:12 WBC 7.6 D RBC 1.95 L Hgb 5.8 L* Hct 17.2 L MCV 88.0 MCH 29.9 MCHC 34.0 RDW 16.1 H Plt Count 105 L D MPV 9.3 Neut % (Auto) 79.3 H Lymph % (Auto) 11.3 L Keith % (Auto) 7.5 Eos % (Auto) 1.2 Baso % (Auto) 0.7 Neut # (Auto) 6.0 Lymph # (Auto) 0.9 L Keith # (Auto) 0.6 Eos # (Auto) 0.1 Baso # (Auto) 0.1 PT INR APTT Sodium Potassium Chloride Carbon Dioxide Anion Gap BUN Creatinine Est GFR ( Amer) Est GFR (Non-Af Amer) POC Glucose (mg/dL) 120 H Random Glucose Calcium Phosphorus Magnesium Total Bilirubin AST ALT Alkaline Phosphatase Total Protein Albumin Globulin Albumin/Globulin Ratio Blood Type O POSITIVE Antibody Screen Negative 07/29/17 07/29/17 07/29/17 06:26 06:28 06:32 WBC 8.4 RBC 2.30 L Hgb 7.2 L Hct 20.4 L MCV 88.6 MCH 31.2 H MCHC 35.1 RDW 16.4 H Plt Count 108 L MPV 9.4 Neut % (Auto) 79.2 H Lymph % (Auto) 11.6 L Keith % (Auto) 7.6 Eos % (Auto) 1.2 Baso % (Auto) 0.4 Neut # (Auto) 6.6 Lymph # (Auto) 1.0 Keith # (Auto) 0.6 Eos # (Auto) 0.1 Baso # (Auto) 0.0 PT 13.8 H D INR 1.2 D APTT 32 Sodium 143 Potassium 4.7 Chloride 106 Carbon Dioxide 28 Anion Gap 14 BUN 39 H Creatinine 4.0 H Est GFR ( Amer) 17 Est GFR (Non-Af Amer) 14 POC Glucose (mg/dL) Random Glucose 81 Calcium 8.1 L Phosphorus 1.5 L Magnesium 1.8 Total Bilirubin 0.5 AST 27 ALT 21 Alkaline Phosphatase 50 Total Protein 4.9 L Albumin 2.5 L Globulin 2.5 Albumin/Globulin Ratio 1.0 Blood Type Antibody Screen 07/29/17 08:51 WBC RBC Hgb Hct MCV MCH MCHC RDW Plt Count MPV Neut % (Auto) Lymph % (Auto) Keith % (Auto) Eos % (Auto) Baso % (Auto) Neut # (Auto) Lymph # (Auto) Keith # (Auto) Eos # (Auto) Baso # (Auto) PT INR APTT Sodium Potassium Chloride Carbon Dioxide Anion Gap BUN Creatinine Est GFR ( Amer) Est GFR (Non-Af Amer) POC Glucose (mg/dL) Random Glucose Calcium Phosphorus Magnesium Total Bilirubin AST ALT Alkaline Phosphatase Total Protein Albumin Globulin Albumin/Globulin Ratio Blood Type O POSITIVE Antibody Screen Negative Fingerstick Blood Sugar Results: 120 Critical Care Progress Note - Nutrition Nutrition: Nutrition Category Date Time Status NPO Diet [DIET] Diets 07/28/17 Breakfast Active Assessment/Plan - Assessment and Plan (Free Text) Assessment: 81M GIB Plan: Neuro: No acute issues Cardio: History of Afib with pacemaker L. SC. Anticoag held 06/25 to GI bleed Pulm: No acute issues GI: UGIB - Had EGD showing 2 bleeding duodenal ulcer and one visible nonbleeding ulcer in the fundus. Patient was taken back for EGD on 07/28 due consistent drop in HgB. Ulcers no longer bleeding at that time. Patient continued to bleed evidenced by melanotic stool mixed with bright red blood. Patient sent for stat bleeding scan. Surgery consult ([place]). GI ([place]). patient for colonoscopy today. IR states need CTA while actively bleeding for embolization. will follow colonoscopy * Transfused 2 units FFP, 5 units PRBC, started Vitamin k * protonix drip * NPO Renal: ESRD on HD MWF. Permacath in R. SC. 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 Nephro ([place]) * vitamin C * Procrit * Vit D * Vit B Endo: no acute issues ID: No acute issues PPX: SCD. On protonix drip <Ta Craig - Last Filed: 07/31/17 13:57> CCU Objective - Vital Signs / Intake & Output Vital Signs (Last 4 hours): Vital Signs Temp Pulse Resp BP Pulse Ox 07/31/17 13:11 79 12 117/38 L 98 07/31/17 13:00 83 14 97 07/31/17 12:11 92 H 12 130/93 H 97 07/31/17 12:00 98.6 F 85 15 98 07/31/17 11:12 86 14 132/35 L 97 07/31/17 11:00 81 12 97 07/31/17 10:11 74 12 138/53 L 100 07/31/17 10:00 72 14 93 L Intake and Output (Last 8hrs): Intake & Output 07/30/17 07/31/17 07/31/17 22:59 06:59 14:59 Intake Total 340 180 420 Output Total 0 0 Balance 340 180 420 Weight 105 lb 14.4 oz Intake: Intake, IV Amount 240 180 0 Right Distal Port Femoral 240 180 0 Right Proximal Port 0 Femoral Oral 100 420 Output: Urine 0 0 Urine, Voided 0 0 Stool 0 Other: # Voids Urine, Voided 0 # Bowel Movements 1 0 - Medications Active Medications: Active Medications Generic Name Dose Route Start Last Admin Trade Name Lexie PRN Reason Stop Dose Admin Ascorbic Acid 500 mg 07/27/17 10:00 07/31/17 09:27 Vitamin C 500 Mg Tab PO 500 mg DAILY RO Administration Epoetin Javed 10,000 unit 07/27/17 10:00 07/29/17 17:59 Procrit IV 08/07/17 10:01 10,000 unit TTS RO Administration Ergocalciferol 1 cap 07/26/17 20:15 07/26/17 21:29 Drisdol 50,000 Intl Units Cap PO Not Given Q7D RO Mupirocin 0 gm 07/29/17 11:15 07/31/17 09:27 Bactroban Ointment TOP 1 applic BID RO Administration Pantoprazole Sodium 40 mg 07/30/17 09:30 07/31/17 09:26 Protonix Inj IVP 40 mg Q12H RO Administration Phytonadione 10 mg 07/28/17 11:00 07/31/17 09:26 Vitamin K Inj SC 08/01/17 10:01 10 mg DAILY RO Administration Potassium Phos/Sodium Phos 1 pkt 07/30/17 10:00 07/31/17 09:27 Neutra-Phos PO 1 pkt DAILY RO Administration Vitamin B Complex/Vit C/Folic Acid 1 tab 07/27/17 08:00 07/31/17 08:27 Nephro-Xavier PO 1 tab 0800 RO Administration - Patient Studies Lab Studies: Lab Studies 07/31/17 07/31/17 07/31/17 Range/Units 11:16 06:03 06:03 WBC 7.8 (4.8-10.8) K/uL RBC 2.89 L (4.40-5.90) Mil/uL Hgb 8.8 L (12.0-18.0) g/dL Hct 26.0 L (35.0-51.0) % MCV 90.1 (80.0-94.0) fL MCH 30.5 (27.0-31.0) pg MCHC 33.9 (33.0-37.0) g/dL RDW 16.6 H (11.5-14.5) % Plt Count 106 L (130-400) K/uL MPV 9.4 (7.2-11.7) fL Neut % (Auto) 81.9 H (50.0-75.0) % Lymph % (Auto) 9.7 L (20.0-40.0) % Keith % (Auto) 5.6 (0.0-10.0) % Eos % (Auto) 2.2 (0.0-4.0) % Baso % (Auto) 0.6 (0.0-2.0) % Neut # (Auto) 6.4 (1.8-7.0) K/uL Lymph # (Auto) 0.8 L (1.0-4.3) K/uL Keith # (Auto) 0.4 (0.0-0.8) K/uL Eos # (Auto) 0.2 (0.0-0.7) K/uL Baso # (Auto) 0.0 (0.0-0.2) K/uL Neutrophils % (Manual) 85 H (50-75) % Lymphocytes % (Manual) 9 L (20-40) % Monocytes % (Manual) 5 (0-10) % Eosinophils % (Manual) 1 (0-4) % Platelet Estimate Slightly decreased L (NORMAL) Large Platelets Present Polychromasia Slight Hypochromasia (manual) Slight Anisocytosis (manual) Moderate Macrocytosis (manual) Slight Sodium 140 (132-148) mmol/L Potassium 3.7 (3.6-5.2) mmol/L Chloride 106 (98-107) mmol/L Carbon Dioxide 26 (22-30) mmol/L Anion Gap 12 (10-20) BUN 22 H (9-20) mg/dL Creatinine 4.1 H (0.8-1.5) mg/dL Est GFR ( Amer) 17 Est GFR (Non-Af Amer) 14 POC Glucose (mg/dL) 85 (65-110) mg/dL Random Glucose 87 (75-110) mg/dL Calcium 8.0 L (8.6-10.4) mg/dl Phosphorus 2.2 L (2.5-4.5) mg/dL Total Bilirubin 0.8 (0.2-1.3) mg/dL AST 21 (17-59) U/L ALT 21 (21-72) U/L Alkaline Phosphatase 55 (38-126) U/L Total Protein 5.2 L (6.3-8.3) g/dL Albumin 2.5 L (3.5-5.0) g/dL Globulin 2.7 (2.2-3.9) gm/dL Albumin/Globulin Ratio 0.9 L (1.0-2.1) 07/31/17 07/30/17 07/30/17 Range/Units 06:00 23:56 21:50 WBC (4.8-10.8) K/uL RBC (4.40-5.90) Mil/uL Hgb (12.0-18.0) g/dL Hct (35.0-51.0) % MCV (80.0-94.0) fL MCH (27.0-31.0) pg MCHC (33.0-37.0) g/dL RDW (11.5-14.5) % Plt Count (130-400) K/uL MPV (7.2-11.7) fL Neut % (Auto) (50.0-75.0) % Lymph % (Auto) (20.0-40.0) % Keith % (Auto) (0.0-10.0) % Eos % (Auto) (0.0-4.0) % Baso % (Auto) (0.0-2.0) % Neut # (Auto) (1.8-7.0) K/uL Lymph # (Auto) (1.0-4.3) K/uL Keith # (Auto) (0.0-0.8) K/uL Eos # (Auto) (0.0-0.7) K/uL Baso # (Auto) (0.0-0.2) K/uL Neutrophils % (Manual) (50-75) % Lymphocytes % (Manual) (20-40) % Monocytes % (Manual) (0-10) % Eosinophils % (Manual) (0-4) % Platelet Estimate (NORMAL) Large Platelets Polychromasia Hypochromasia (manual) Anisocytosis (manual) Macrocytosis (manual) Sodium (132-148) mmol/L Potassium (3.6-5.2) mmol/L Chloride (98-107) mmol/L Carbon Dioxide (22-30) mmol/L Anion Gap (10-20) BUN (9-20) mg/dL Creatinine (0.8-1.5) mg/dL Est GFR ( Amer) Est GFR (Non-Af Amer) POC Glucose (mg/dL) 78 104 95 (65-110) mg/dL Random Glucose (75-110) mg/dL Calcium (8.6-10.4) mg/dl Phosphorus (2.5-4.5) mg/dL Total Bilirubin (0.2-1.3) mg/dL AST (17-59) U/L ALT (21-72) U/L Alkaline Phosphatase (38-126) U/L Total Protein (6.3-8.3) g/dL Albumin (3.5-5.0) g/dL Globulin (2.2-3.9) gm/dL Albumin/Globulin Ratio (1.0-2.1) 07/30/17 Range/Units 16:36 WBC (4.8-10.8) K/uL RBC (4.40-5.90) Mil/uL Hgb (12.0-18.0) g/dL Hct (35.0-51.0) % MCV (80.0-94.0) fL MCH (27.0-31.0) pg MCHC (33.0-37.0) g/dL RDW (11.5-14.5) % Plt Count (130-400) K/uL MPV (7.2-11.7) fL Neut % (Auto) (50.0-75.0) % Lymph % (Auto) (20.0-40.0) % Keith % (Auto) (0.0-10.0) % Eos % (Auto) (0.0-4.0) % Baso % (Auto) (0.0-2.0) % Neut # (Auto) (1.8-7.0) K/uL Lymph # (Auto) (1.0-4.3) K/uL Keith # (Auto) (0.0-0.8) K/uL Eos # (Auto) (0.0-0.7) K/uL Baso # (Auto) (0.0-0.2) K/uL Neutrophils % (Manual) (50-75) % Lymphocytes % (Manual) (20-40) % Monocytes % (Manual) (0-10) % Eosinophils % (Manual) (0-4) % Platelet Estimate (NORMAL) Large Platelets Polychromasia Hypochromasia (manual) Anisocytosis (manual) Macrocytosis (manual) Sodium (132-148) mmol/L Potassium (3.6-5.2) mmol/L Chloride (98-107) mmol/L Carbon Dioxide (22-30) mmol/L Anion Gap (10-20) BUN (9-20) mg/dL Creatinine (0.8-1.5) mg/dL Est GFR ( Amer) Est GFR (Non-Af Amer) POC Glucose (mg/dL) 115 H (65-110) mg/dL Random Glucose (75-110) mg/dL Calcium (8.6-10.4) mg/dl Phosphorus (2.5-4.5) mg/dL Total Bilirubin (0.2-1.3) mg/dL AST (17-59) U/L ALT (21-72) U/L Alkaline Phosphatase (38-126) U/L Total Protein (6.3-8.3) g/dL Albumin (3.5-5.0) g/dL Globulin (2.2-3.9) gm/dL Albumin/Globulin Ratio (1.0-2.1) Laboratory Results - last 24 hr 07/30/17 07/30/17 07/30/17 16:36 21:50 23:56 WBC RBC Hgb Hct MCV MCH MCHC RDW Plt Count MPV Neut % (Auto) Lymph % (Auto) Keith % (Auto) Eos % (Auto) Baso % (Auto) Neut # (Auto) Lymph # (Auto) Keith # (Auto) Eos # (Auto) Baso # (Auto) Neutrophils % (Manual) Lymphocytes % (Manual) Monocytes % (Manual) Eosinophils % (Manual) Platelet Estimate Large Platelets Polychromasia Hypochromasia (manual) Anisocytosis (manual) Macrocytosis (manual) Sodium Potassium Chloride Carbon Dioxide Anion Gap BUN Creatinine Est GFR ( Amer) Est GFR (Non-Af Amer) POC Glucose (mg/dL) 115 H 95 104 Random Glucose Calcium Phosphorus Total Bilirubin AST ALT Alkaline Phosphatase Total Protein Albumin Globulin Albumin/Globulin Ratio 07/31/17 07/31/17 07/31/17 06:00 06:03 06:03 WBC 7.8 RBC 2.89 L Hgb 8.8 L Hct 26.0 L MCV 90.1 MCH 30.5 MCHC 33.9 RDW 16.6 H Plt Count 106 L MPV 9.4 Neut % (Auto) 81.9 H Lymph % (Auto) 9.7 L Keith % (Auto) 5.6 Eos % (Auto) 2.2 Baso % (Auto) 0.6 Neut # (Auto) 6.4 Lymph # (Auto) 0.8 L Keith # (Auto) 0.4 Eos # (Auto) 0.2 Baso # (Auto) 0.0 Neutrophils % (Manual) 85 H Lymphocytes % (Manual) 9 L Monocytes % (Manual) 5 Eosinophils % (Manual) 1 Platelet Estimate Slightly decreased L Large Platelets Present Polychromasia Slight Hypochromasia (manual) Slight Anisocytosis (manual) Moderate Macrocytosis (manual) Slight Sodium 140 Potassium 3.7 Chloride 106 Carbon Dioxide 26 Anion Gap 12 BUN 22 H Creatinine 4.1 H Est GFR ( Amer) 17 Est GFR (Non-Af Amer) 14 POC Glucose (mg/dL) 78 Random Glucose 87 Calcium 8.0 L Phosphorus 2.2 L Total Bilirubin 0.8 AST 21 ALT 21 Alkaline Phosphatase 55 Total Protein 5.2 L Albumin 2.5 L Globulin 2.7 Albumin/Globulin Ratio 0.9 L 07/31/17 11:16 WBC RBC Hgb Hct MCV MCH MCHC RDW Plt Count MPV Neut % (Auto) Lymph % (Auto) Keith % (Auto) Eos % (Auto) Baso % (Auto) Neut # (Auto) Lymph # (Auto) Keith # (Auto) Eos # (Auto) Baso # (Auto) Neutrophils % (Manual) Lymphocytes % (Manual) Monocytes % (Manual) Eosinophils % (Manual) Platelet Estimate Large Platelets Polychromasia Hypochromasia (manual) Anisocytosis (manual) Macrocytosis (manual) Sodium Potassium Chloride Carbon Dioxide Anion Gap BUN Creatinine Est GFR ( Amer) Est GFR (Non-Af Amer) POC Glucose (mg/dL) 85 Random Glucose Calcium Phosphorus Total Bilirubin AST ALT Alkaline Phosphatase Total Protein Albumin Globulin Albumin/Globulin Ratio Critical Care Progress Note - Nutrition Nutrition: Nutrition Category Date Time Status Liquid Diet [DIET] Diets 07/30/17 Breakfast Active Assessment/Plan - Assessment and Plan (Free Text) Plan: Patient seen and examined at bedside. Above resident note reflects my managemet and discussion for above patient. Continue to monitor - Date & Time Date: 07/31/17 Time: 13:57
[2017-07-29] MEDS: Phytonadione 10 mg/ml Inj (Adult) SC SCH (14:30)
[2017-07-29 15:41] LABS: BASO # 0.1 K/uL (0.0-0.2); BASO % 1.1 % (0.0-2.0); EOS # 0.1 K/uL (0.0-0.7); EOS % 1.7 % (0.0-4.0); HEMOGLOBIN 7.1 g/dL (12.0-18.0); LYMPH # 0.8 K/uL (1.0-4.3); LYMPH % 10.7 % (20.0-40.0); MEAN CELL VOLUME 90.1 fL (80.0-94.0); MEAN CORPUSCULAR HGB CONC 34.4 g/dL (33.0-37.0); MEAN PLATELET VOLUME 9.2 fL (7.2-11.7); MONO # 0.4 K/uL (0.0-0.8); MONO % 5.1 % (0.0-10.0); NEUT # 6.2 K/uL (1.8-7.0); NEUT % 81.4 % (50.0-75.0); NRBC % 0.1 % (0.0-2.0); RBC 2.28 Mil/uL (4.40-5.90); RED CELL DISTRIBUTION WIDTH 16.4 % (11.5-14.5); WHITE BLOOD COUNT 7.6 K/uL (4.8-10.8)
[2017-07-29] MEDS: Epoetin Alfa 10,000 unit/ml Dialysis IV SCH (17:59)
--- NOTE | 2017-07-29 21:06 | PN ---
DATE: SUBJECTIVE: The patient is about to be initiated on hemodialysis today. He underwent colonoscopy this morning. He did receive total of 2 units of packed RBC transfusion yesterday and 2 units of fresh frozen plasma. He is still experiencing melena. No chest pain and no reported ventricular arrhythmia. PHYSICAL EXAMINATION: VITAL SIGNS: Blood pressure 116/58, pulse rate 89, temperature 97.2, and respirations 15. HEENT: Pale conjunctivae. CHEST: Bilateral rhonchi. HEART: S1 and S2, regular. EXTREMITIES: Trace leg edema. LABORATORY DATA: His hemoglobin and hematocrit 7.1 and 20.5, white count is 7.6, platelet count 114,000. Today, his BUN and creatinine are 39 and 4.2. Rest of SMA-7 is within normal limit. Magnesium is below normal at 1.5. Yesterday, his magnesium level was 2.0. CT angio, multiple areas of prior bowel resection. No CT angio evidence of active contrast extravasation. ASSESSMENT: 1. Gastrointestinal bleeding. 2. Status post single-chamber ventricular pacemaker placement. 3. Hypotension, the patient is currently off Levophed. 4. Anemia. 5. Thrombocytopenia. RECOMMENDATIONS: I did review the echocardiographic study, which revealed moderate concentric LVH with normal ejection fraction. Continue current Procrit, ascorbic acid, and vitamin K. Decision for subcutaneous heparin or decision for heparin during hemodialysis will be left up to the primary physician and the home health care respiratory therapist. Miah Gallagher MD
--- NOTE | 2017-07-30 00:43 | PN ---
DATE: 07/29/2017. SUBJECTIVE: The patient is seen in intensive care unit today 07/29/2017 after he just came back from colonoscopy and patient already was just started on hemodialysis. PHYSICAL EXAMINATION: VITAL SIGNS: Blood pressure 109/58, temperature 97.2, respiratory rate 16, and pulse 90. HEENT: Pale mucosa of the conjunctivae. NECK: No JVD. No carotid bruits. No lymph node. No thyromegaly. CHEST AND LUNGS: Bilateral symmetrical expansion. Good air exchange. No rales, no rhonchi. CARDIOVASCULAR SYSTEM: PMI not localized. S1, S2. No additional sounds. ABDOMEN: Decreased bowel sounds. No tenderness. No organomegaly. No masses. EXTREMITIES: The patient was sedated post colonoscopy and no signs of lateralization. LABORATORY DATA: Hemoglobin is 7.1, hematocrit 20.5. ASSESSMENT: 1. Anemia of acute blood loss. 2. Gastrointestinal bleeding likely upper. 3. End-stage renal disease, on hemodialysis. 4. History of hypertension. PLAN: We will transfuse patient 2 units of packed RBCs during hemodialysis. Follow GI recommendations as well as surgical recommendations. Monitor hemoglobin and hematocrit. Guarded prognosis. Since patient is being transfused more than 4 units of packed RBCs so far and he is a poor surgical candidate given the multiple comorbidities and the guarded prognosis. Jody Krishnamurthy MD
[2017-07-30] MEDS ORDERED: Dextrose 50% SYRINGE Inj (50 ml) IV STA (01:28)
[2017-07-30] MEDS ORDERED: Dextrose 5%/0.9% NS 1,000 ML IV ONE ×2 (01:28→01:30)
[2017-07-30] MEDS: Pantoprazole 80 MG in Sodium Chloride 0.9% 100 ML IV SCH (06:00)
[2017-07-30 06:31] LABS: BASO # 0.1 K/uL (0.0-0.2); BASO % 0.7 % (0.0-2.0); EOS # 0.2 K/uL (0.0-0.7); EOS % 1.8 % (0.0-4.0); HEMOGLOBIN 9.8 g/dL (12.0-18.0); LYMPH # 0.6 K/uL (1.0-4.3); LYMPH % 6.8 % (20.0-40.0); MEAN CELL VOLUME 87.5 fL (80.0-94.0); MEAN CORPUSCULAR HEMOGLOBIN 30.5 pg (27.0-31.0); MEAN CORPUSCULAR HGB CONC 34.8 g/dL (33.0-37.0); MEAN PLATELET VOLUME 9.4 fL (7.2-11.7); MONO # 0.5 K/uL (0.0-0.8); MONO % 5.2 % (0.0-10.0); NEUT # 7.5 K/uL (1.8-7.0); NEUT % 85.5 % (50.0-75.0); NRBC % 0.3 % (0.0-2.0); PLATELET COUNT 105 K/uL (130-400); RBC 3.21 Mil/uL (4.40-5.90); RED CELL DISTRIBUTION WIDTH 16.3 % (11.5-14.5); WHITE BLOOD COUNT 8.8 K/uL (4.8-10.8)
[2017-07-30 06:42] LABS: INR 1.1; PROTHROMBIN TIME 11.9 SECONDS (9.7-12.2)
[2017-07-30 06:53] LABS: ALBUMIN 2.6 g/dL (3.5-5.0)
--- NOTE | 2017-07-30 07:43 | CP.PCM.PN ---
<Rodolfo Craig - Last Filed: 07/30/17 09:23> Subjective - Date & Time of Evaluation Date of Evaluation: 07/30/17 Time of Evaluation: 07:00 - Subjective Subjective: PGY4 GI Follow-up No acute events overnight received 2 units of prbc during dialysis no sign of GI bleed as per RN minimal communication from the pt ROS: 10 point ROS conducted, neg other than above Objective - Vital Signs/Intake and Output Vital Signs (last 24 hours): Temp Pulse Resp BP Pulse Ox 97.5 F L 72 15 126/40 L 100 07/30/17 04:00 07/30/17 06:00 07/30/17 06:00 07/30/17 05:48 07/30/17 06:00 Intake and Output: 07/30/17 07/30/17 06:59 18:59 Intake Total 365 Output Total 1 Balance 364 - Medications Medications: Current Medications Ascorbic Acid (Vitamin C 500 Mg Tab) 500 mg PO DAILY [facility] Last Admin: 07/29/17 11:12 Dose: Not Given Epoetin Javed (Procrit) 10,000 unit IV TTS [facility] Stop: 08/07/17 10:01 Last Admin: 07/29/17 17:59 Dose: 10,000 unit Ergocalciferol (Drisdol 50,000 Intl Units Cap) 1 cap PO Q7D [facility] Last Admin: 07/26/17 21:29 Dose: Not Given Heparin Sodium (Porcine) (Heparin) 3,900 units IVP DIAL PRN PRN Reason: to lock HD cath Last Admin: 07/29/17 18:00 Dose: 3,900 units Pantoprazole Sodium 80 mg/ (Sodium Chloride) 100 mls @ 10 mls/hr IV .Q10H [facility] PRN Reason: 8 MG/HR Last Admin: 07/30/17 06:00 Dose: Not Given Dextrose/Sodium Chloride (Dextrose 5%/0.9% Ns 1000 Ml) 1,000 mls @ 30 mls/hr IV .Q24H ONE Stop: 07/31/17 01:27 Last Admin: 07/30/17 01:37 Dose: 30 mls/hr Mupirocin (Bactroban Ointment) 0 gm TOP BID [facility] Last Admin: 07/29/17 18:19 Dose: 1 applic Phytonadione (Vitamin K Inj) 10 mg SC DAILY [facility] Stop: 08/01/17 10:01 Last Admin: 07/29/17 14:30 Dose: 10 mg Potassium Phos/Sodium Phos (Neutra-Phos) 1 pkt PO DAILY [facility] Vitamin B Complex/Vit C/Folic Acid (Nephro-Xavier) 1 tab PO 0800 RO Last Admin: 07/29/17 07:46 Dose: Not Given - Labs Labs: 07/30/17 06:25 07/30/17 06:25 PT 11.9 SECONDS (9.7-12.2) 07/30/17 04:00 INR 1.1 07/30/17 04:00 APTT 31 SECONDS (21-34) 07/30/17 04:00 - Constitutional Appears: Well, No Acute Distress - Head Exam Head Exam: ATRAUMATIC, NORMOCEPHALIC - Eye Exam Eye Exam: Normal appearance - ENT Exam ENT Exam: Mucous Membranes Moist, Normal Exam - Respiratory Exam Respiratory Exam: Clear to Ausculation Bilateral, NORMAL BREATHING PATTERN. absent: Rales, Rhonchi, Wheezes, Respiratory Distress - Cardiovascular Exam Cardiovascular Exam: REGULAR RHYTHM, +S1, +S2 - GI/Abdominal Exam GI & Abdominal Exam: Soft, Normal Bowel Sounds. absent: Guarding, Rigid, Tenderness - Extremities Exam Extremities Exam: Pedal Edema. absent: Joint Swelling - Neurological Exam Neurological Exam: Altered - Psychiatric Exam Psychiatric exam: Flat Affect - Skin Skin Exam: Dry, Intact, Warm Assessment and Plan - Assessment and Plan (Free Text) Assessment: Jordi Bustillos is 81M w/ hx of Anemia, Anxiety, Atrial Fibrillation, Diabetes, HTN, Hypercholesterolemia, End Stage Renal Disease, Chronic Kidney Disease ( hemodialysis) who presented to the ER with Chest Pain. GI consulted for melena and anemia. S/P EGD 07/27/17: multiple ulcers in the duodenum sweep and 2nd portion s/p heat probe, visible vessel at the fundus of the stomach s/p heat probe. S/p EGD 07/28/17: revealed no active bleeding from previous ulceration sites; s/p colonoscopy 07/29/17: revealed altered anatomy s/p extended right sided hemicolectomy with side to side anastomosis with ileum?, only old melena and no active bleeding visualized. + bleeding scan; localizing to cecum? and ascending?, but neg CT angio Anemia Melena, source unknown. ESRD PVD Dementia? Plan: -start on clears -continue PPI 40mg BID -s/p 2 unit PRBC yesterday, hgb responded appropriately -continue to monitor h/h -if pt has another recurrent bleed, CT angio immediately and inform IR -no active bleeding found on colonoscopy -unable to offer any additional GI intervention at this time -rest of care as per primary team -advise to discontinue plavix from home meds -will give x1 dose of desmopressin 15mcg IV for possible uremic platelet dysfunction D/W Dr. Cruz <Luis A Cruz - Last Filed: 07/30/17 11:49> Objective - Vital Signs/Intake and Output Vital Signs (last 24 hours): Temp Pulse Resp BP Pulse Ox 97.9 F 79 18 136/48 L 100 07/30/17 08:00 07/30/17 08:00 07/30/17 08:00 07/30/17 08:00 07/30/17 08:00 Intake and Output: 07/30/17 07/30/17 06:59 18:59 Intake Total 365 120 Output Total 1 Balance 364 120 - Medications Medications: Current Medications Ascorbic Acid (Vitamin C 500 Mg Tab) 500 mg PO DAILY [facility] Last Admin: 07/30/17 10:48 Dose: 500 mg Epoetin Javed (Procrit) 10,000 unit IV TTS [facility] Stop: 08/07/17 10:01 Last Admin: 07/29/17 17:59 Dose: 10,000 unit Ergocalciferol (Drisdol 50,000 Intl Units Cap) 1 cap PO Q7D [facility] Last Admin: 07/26/17 21:29 Dose: Not Given Heparin Sodium (Porcine) (Heparin) 3,900 units IVP DIAL PRN PRN Reason: to lock HD cath Last Admin: 07/29/17 18:00 Dose: 3,900 units Dextrose/Sodium Chloride (Dextrose 5%/0.9% Ns 1000 Ml) 1,000 mls @ 30 mls/hr IV .Q24H ONE Stop: 07/31/17 01:27 Last Admin: 07/30/17 01:37 Dose: 30 mls/hr Mupirocin (Bactroban Ointment) 0 gm TOP BID [facility] Last Admin: 07/30/17 10:49 Dose: 1 applic Pantoprazole Sodium (Protonix Inj) 40 mg IVP Q12H [facility] Last Admin: 07/30/17 09:52 Dose: 40 mg Phytonadione (Vitamin K Inj) 10 mg SC DAILY [facility] Stop: 08/01/17 10:01 Last Admin: 07/30/17 09:53 Dose: 10 mg Potassium Phos/Sodium Phos (Neutra-Phos) 1 pkt PO DAILY [facility] Last Admin: 07/30/17 10:49 Dose: 1 pkt Vitamin B Complex/Vit C/Folic Acid (Nephro-Xavier) 1 tab PO 0800 [facility] Last Admin: 07/30/17 08:00 Dose: Not Given - Labs Labs: 07/30/17 06:25 07/30/17 06:25 PT 11.9 SECONDS (9.7-12.2) 07/30/17 04:00 INR 1.1 07/30/17 04:00 APTT 31 SECONDS (21-34) 07/30/17 04:00 Attending/Attestation - Attestation I have personally seen and examined this patient.: Yes I have fully participated in the care of the patient.: Yes I have reviewed all pertinent clinical information, including history, physical exam and plan: Yes Notes (Text): 07/30/17 11:21 Patient seen with GI fellow and medical record retrieval specialist. This is a 81 year old M w/ hx of Anemia, Anxiety, Atrial Fibrillation, Diabetes, HTN, Hypercholesterolemia, End Stage Renal Disease, Chronic Kidney Disease (hemodialysis) who presented to the ER with Chest Pain. GI consulted for melena and anemia. S/P EGD 07/27/17: multiple ulcers in the duodenum sweep and 2nd portion s/p heater probe, visible vessel at the fundus of the stomach s/p heater probe. Repeat EGD 07/28/17: revealed no active bleeding from previous ulceration sites; s/p colonoscopy : revealed altered anatomy s/p extended right sided hemicolectomy with side to side anastomosis with ileum?, only old melena and no active bleeding visualized. + bleeding scan; localizing to cecum? and ascending?, but neg CT angio No bleeidng overnight with appropriate response to blood transfusions. Surgical evaluatin appreciated. Will consider desmopressin on HD days for platelet dysfunction and prevent further bleeding.Will start clear liquid diet today. If further episodes of recurrent bleed will benefit from CT angio with IR for possible embolization.
[2017-07-30] MEDS: Multivitamin Vitamin B Complex (Nephro-Vite) Tab PO SCH (08:00)
[2017-07-30 08:58] LABS: EOSINOPHIL 2 % (0-4); LYMPHOCYTE 4 % (20-40); MONOCYTE 6 % (0-10); NEUTROPHIL 88 % (50-75); TOTAL CELLS COUNTED 100
[2017-07-30 08:59] LABS: ANISOCYTOSIS SLIGHT; PLATELET ESTIMATE SLIGHTLY DECREASED (NORMAL)
[2017-07-30 09:00] LABS: HYPOCHROMIC SLIGHT; POLYCHROMIC SLIGHT; TOXIC GRANULATION PRESENT
[2017-07-30 09:01] LABS: LARGE PLATELETS PRESENT
[2017-07-30 09:02] LABS: GIANT PLATELETS PRESENT
[2017-07-30] MEDS: Phytonadione 10 mg/ml Inj (Adult) SC SCH (09:53)
[2017-07-30] MEDS ORDERED: Desmopressin 15 MCG in Sodium Chloride 0.9% 50 ML IV ONE (10:00)
--- NOTE | 2017-07-30 10:24 | CARD ---
APPROVED REPORT EXAM: Two-dimensional and M-mode echocardiogram with Doppler and color Doppler. Other Information Quality : TDSRhythm : INDICATION Cardiac Disease: CAD ESRD/ Anemia/ Hypotension RISK FACTORS Diabetes 2D DIMENSIONS IVSd1.5 (0.7-1.1cm)LVDd4.2 (3.9-5.9cm) LVOT Diameter2.3 (1.8-2.4cm)PWd1.4 (0.7-1.1cm) LVDs2.4 (2.5-4.0cm)FS (%) 44.0 % LVEF (%)75.6 (>50%) M-Mode DIMENSIONS Left Atrium (MM)3.01 (2.5-4.0cm)Aortic Root3.80 (2.2-3.7cm) Aortic Cusp Exc.2.35 (1.5-2.0cm) Mitral Valve MV E Zpjpzogm04.4cm/sMV A Evplichx71.8cm/sE/A ratio0.8 TDI E/Lateral E'0.0E/Medial E'0.0 LEFT VENTRICLE The left ventricle is normal size. There is normal left ventricular wall thickness. Left ventricle systolic function is normal. The Ejection Fraction is >70%. There is normal LV segmental wall motion. Tissue Doppler imaging reveals abnormal left ventricular diastolic dysfunction. RIGHT VENTRICLE The right ventricle is normal size. There is normal right ventricular wall thickness. The right ventricular systolic function is normal. AORTIC VALVE The aortic valve is calcified but opens well. There is trace aortic regurgitation. There is no aortic valvular stenosis. MITRAL VALVE The mitral valve is calcified but opens well. There is no evidence of mitral valve prolapse. There is no mitral valve stenosis. There is no mitral valve regurgitation noted. TRICUSPID VALVE The tricuspid valve is normal in structure. There is no tricuspid valve regurgitation noted. There is no tricuspid valve prolapse or vegetation. PULMONIC VALVE The pulmonic valve is not well visualized. There is no pulmonic valvular regurgitation. GREAT VESSELS The aortic root is normal in size. PERICARDIAL EFFUSION There is no significant pericardial effusion. <Conclusion> Left ventricle systolic function is normal. The Ejection Fraction is >70%. Diastolic dysfunction. There is trace aortic regurgitation. There is no mitral valve regurgitation noted. There is no tricuspid valve regurgitation noted. There is no pulmonic valvular regurgitation.
[2017-07-30] MEDS: Potassium & Sodium Phosphate PO SCH (10:49)
--- NOTE | 2017-07-30 11:41 | CP.CCUPN ---
<Jerry Barajas - Last Filed: 07/30/17 11:39> CCU Subjective - Physician Review Subjective (Free Text): 07/28/17 11:44 Patient seen and examined at bedside EGD showed same ulcers but no active bleeding patient did have bloody BM dark with bright blood after EGD bleeding scan and surgery consult. 2 units PRBC and 2 units FFP 07/29/17 12:52 patient seen and examined GI to do colonoscopy today IR says to repeat CTA when actively bleeding for embolization Will follow GI after scope 07/30/17 11:39 patient seen and examined at bedside no active bleeding at this time tolerating diet 5 PRBC/2 FFP to date No other complaints at this time CCU Objective - Vital Signs / Intake & Output Vital Signs (Last 4 hours): Vital Signs Temp Pulse Resp BP Pulse Ox 07/30/17 08:00 97.9 F 79 18 136/48 L 100 07/30/17 07:47 76 17 141/45 L 100 Intake and Output (Last 8hrs): Intake & Output 07/29/17 07/30/17 07/30/17 22:59 06:59 14:59 Intake Total 627 325 120 Output Total 1 Balance 627 324 120 Weight 106 lb 8 oz Intake: Intake, IV Amount 50 325 120 Right Distal Port Femoral 245 90 Right Proximal Port 50 80 30 Femoral Blood Product 552 Apheresis Rbc Cp2d As3 Lr 227 1st Unit [id number] Red Blood Cells Cpd As1 325 Lr Unit [id number] Other 25 Apheresis Rbc Cp2d As3 Lr 25 1st Unit [id number] Output: Urine/Stool Mix 1 Other: # Bowel Movements 1 - Physical Exam Head: Positive for: Atraumatic, Normocephalic Pupils: Positive for: PERRL Extroacular Muscles: Positive for: EOMI Conjunctiva: Positive for: Normal Mouth: Positive for: Moist Mucous Membranes Neck: Positive for: Normal Range of Motion Respiratory/Chest: Positive for: Clear to Auscultation, Good Air Exchange. Negative for: Respiratory Distress, Accessory Muscle Use Cardiovascular: Positive for: Regular Rate and Rhythm, Normal S1, S2. Negative for: Murmurs Abdomen: Positive for: Normal Bowel Sounds. Negative for: Tenderness, Distention, Peritoneal Signs Neurological: Positive for: GCS=15 Skin: Positive for: Warm, Dry Psychiatric: Positive for: Alert, Oriented x 3 - Medications Active Medications: Active Medications Generic Name Dose Route Start Last Admin Trade Name Lexie PRN Reason Stop Dose Admin Ascorbic Acid 500 mg 07/27/17 10:00 07/30/17 10:48 Vitamin C 500 Mg Tab PO 500 mg DAILY RO Administration Epoetin Javed 10,000 unit 07/27/17 10:00 07/29/17 17:59 Procrit IV 08/07/17 10:01 10,000 unit TTS RO Administration Ergocalciferol 1 cap 07/26/17 20:15 07/26/17 21:29 Drisdol 50,000 Intl Units Cap PO Not Given Q7D RO Heparin Sodium (Porcine) 3,900 units 07/27/17 14:00 07/29/17 18:00 Heparin IVP 3,900 units DIAL PRN Administration to lock HD cath Dextrose/Sodium Chloride 1,000 mls @ 30 mls/hr 07/30/17 01:30 07/30/17 01:37 Dextrose 5%/0.9% Ns 1000 Ml IV 07/31/17 01:27 30 mls/hr .Q24H ONE Administration Mupirocin 0 gm 07/29/17 11:15 07/30/17 10:49 Bactroban Ointment TOP 1 applic BID RO Administration Pantoprazole Sodium 40 mg 07/30/17 09:30 07/30/17 09:52 Protonix Inj IVP 40 mg Q12H RO Administration Phytonadione 10 mg 07/28/17 11:00 07/30/17 09:53 Vitamin K Inj SC 08/01/17 10:01 10 mg DAILY RO Administration Potassium Phos/Sodium Phos 1 pkt 07/30/17 10:00 07/30/17 10:49 Neutra-Phos PO 1 pkt DAILY RO Administration Vitamin B Complex/Vit C/Folic Acid 1 tab 07/27/17 08:00 07/30/17 08:00 Nephro-Xavier PO Not Given 0800 RO - Patient Studies Lab Studies: Lab Studies 07/30/17 07/30/17 07/30/17 Range/Units 06:25 06:25 05:14 WBC 8.8 (4.8-10.8) K/uL RBC 3.21 L (4.40-5.90) Mil/uL Hgb 9.8 L D (12.0-18.0) g/dL Hct 28.1 L (35.0-51.0) % MCV 87.5 D (80.0-94.0) fL MCH 30.5 (27.0-31.0) pg MCHC 34.8 (33.0-37.0) g/dL RDW 16.3 H (11.5-14.5) % Plt Count 105 L (130-400) K/uL MPV 9.4 (7.2-11.7) fL Neut % (Auto) 85.5 H (50.0-75.0) % Lymph % (Auto) 6.8 L (20.0-40.0) % Gilliam % (Auto) 5.2 (0.0-10.0) % Eos % (Auto) 1.8 (0.0-4.0) % Baso % (Auto) 0.7 (0.0-2.0) % Neut # (Auto) 7.5 H (1.8-7.0) K/uL Lymph # (Auto) 0.6 L (1.0-4.3) K/uL Gilliam # (Auto) 0.5 (0.0-0.8) K/uL Eos # (Auto) 0.2 (0.0-0.7) K/uL Baso # (Auto) 0.1 (0.0-0.2) K/uL Neutrophils % (Manual) 88 H (50-75) % Lymphocytes % (Manual) 4 L (20-40) % Monocytes % (Manual) 6 (0-10) % Eosinophils % (Manual) 2 (0-4) % Differential Comment Toxic Granulation Present Platelet Estimate Slightly decreased L (NORMAL) Large Platelets Present Giant Platelets Present Polychromasia Slight Hypochromasia (manual) Slight Anisocytosis (manual) Slight Macrocytosis (manual) Slight PT (9.7-12.2) SECONDS INR APTT (21-34) SECONDS Sodium 142 (132-148) mmol/L Potassium 3.9 (3.6-5.2) mmol/L Chloride 105 (98-107) mmol/L Carbon Dioxide 29 (22-30) mmol/L Anion Gap 12 (10-20) BUN 23 H (9-20) mg/dL Creatinine 3.1 H (0.8-1.5) mg/dL Est GFR ( Amer) 23 Est GFR (Non-Af Amer) 19 POC Glucose (mg/dL) 96 (65-110) mg/dL Random Glucose 97 (75-110) mg/dL Calcium 8.0 L (8.6-10.4) mg/dl Phosphorus 2.0 L (2.5-4.5) mg/dL Magnesium 1.8 (1.6-2.3) mg/dL Total Bilirubin 0.7 (0.2-1.3) mg/dL AST 25 (17-59) U/L ALT 24 (21-72) U/L Alkaline Phosphatase 52 (38-126) U/L Total Protein 5.2 L (6.3-8.3) g/dL Albumin 2.6 L (3.5-5.0) g/dL Globulin 2.7 (2.2-3.9) gm/dL Albumin/Globulin Ratio 1.0 (1.0-2.1) Blood Type Antibody Screen 07/30/17 07/30/17 07/30/17 Range/Units 04:00 01:24 01:21 WBC (4.8-10.8) K/uL RBC (4.40-5.90) Mil/uL Hgb (12.0-18.0) g/dL Hct (35.0-51.0) % MCV (80.0-94.0) fL MCH (27.0-31.0) pg MCHC (33.0-37.0) g/dL RDW (11.5-14.5) % Plt Count (130-400) K/uL MPV (7.2-11.7) fL Neut % (Auto) (50.0-75.0) % Lymph % (Auto) (20.0-40.0) % Gilliam % (Auto) (0.0-10.0) % Eos % (Auto) (0.0-4.0) % Baso % (Auto) (0.0-2.0) % Neut # (Auto) (1.8-7.0) K/uL Lymph # (Auto) (1.0-4.3) K/uL Gilliam # (Auto) (0.0-0.8) K/uL Eos # (Auto) (0.0-0.7) K/uL Baso # (Auto) (0.0-0.2) K/uL Neutrophils % (Manual) (50-75) % Lymphocytes % (Manual) (20-40) % Monocytes % (Manual) (0-10) % Eosinophils % (Manual) (0-4) % Differential Comment Toxic Granulation Platelet Estimate (NORMAL) Large Platelets Giant Platelets Polychromasia Hypochromasia (manual) Anisocytosis (manual) Macrocytosis (manual) PT 11.9 (9.7-12.2) SECONDS INR 1.1 APTT 31 (21-34) SECONDS Sodium (132-148) mmol/L Potassium (3.6-5.2) mmol/L Chloride (98-107) mmol/L Carbon Dioxide (22-30) mmol/L Anion Gap (10-20) BUN (9-20) mg/dL Creatinine (0.8-1.5) mg/dL Est GFR ( Amer) Est GFR (Non-Af Amer) POC Glucose (mg/dL) 70 68 (65-110) mg/dL Random Glucose (75-110) mg/dL Calcium (8.6-10.4) mg/dl Phosphorus (2.5-4.5) mg/dL Magnesium (1.6-2.3) mg/dL Total Bilirubin (0.2-1.3) mg/dL AST (17-59) U/L ALT (21-72) U/L Alkaline Phosphatase (38-126) U/L Total Protein (6.3-8.3) g/dL Albumin (3.5-5.0) g/dL Globulin (2.2-3.9) gm/dL Albumin/Globulin Ratio (1.0-2.1) Blood Type Antibody Screen 07/29/17 07/29/17 07/29/17 Range/Units 18:54 15:30 08:51 WBC 7.6 (4.8-10.8) K/uL RBC 2.28 L (4.40-5.90) Mil/uL Hgb 7.1 L (12.0-18.0) g/dL Hct 20.5 L (35.0-51.0) % MCV 90.1 (80.0-94.0) fL MCH 31.0 (27.0-31.0) pg MCHC 34.4 (33.0-37.0) g/dL RDW 16.4 H (11.5-14.5) % Plt Count 114 L (130-400) K/uL MPV 9.2 (7.2-11.7) fL Neut % (Auto) 81.4 H (50.0-75.0) % Lymph % (Auto) 10.7 L (20.0-40.0) % Gilliam % (Auto) 5.1 (0.0-10.0) % Eos % (Auto) 1.7 (0.0-4.0) % Baso % (Auto) 1.1 (0.0-2.0) % Neut # (Auto) 6.2 (1.8-7.0) K/uL Lymph # (Auto) 0.8 L (1.0-4.3) K/uL Gilliam # (Auto) 0.4 (0.0-0.8) K/uL Eos # (Auto) 0.1 (0.0-0.7) K/uL Baso # (Auto) 0.1 (0.0-0.2) K/uL Neutrophils % (Manual) (50-75) % Lymphocytes % (Manual) (20-40) % Monocytes % (Manual) (0-10) % Eosinophils % (Manual) (0-4) % Differential Comment Toxic Granulation Platelet Estimate (NORMAL) Large Platelets Giant Platelets Polychromasia Hypochromasia (manual) Anisocytosis (manual) Macrocytosis (manual) PT (9.7-12.2) SECONDS INR APTT (21-34) SECONDS Sodium (132-148) mmol/L Potassium (3.6-5.2) mmol/L Chloride (98-107) mmol/L Carbon Dioxide (22-30) mmol/L Anion Gap (10-20) BUN (9-20) mg/dL Creatinine (0.8-1.5) mg/dL Est GFR ( Amer) Est GFR (Non-Af Amer) POC Glucose (mg/dL) 93 (65-110) mg/dL Random Glucose (75-110) mg/dL Calcium (8.6-10.4) mg/dl Phosphorus (2.5-4.5) mg/dL Magnesium (1.6-2.3) mg/dL Total Bilirubin (0.2-1.3) mg/dL AST (17-59) U/L ALT (21-72) U/L Alkaline Phosphatase (38-126) U/L Total Protein (6.3-8.3) g/dL Albumin (3.5-5.0) g/dL Globulin (2.2-3.9) gm/dL Albumin/Globulin Ratio (1.0-2.1) Blood Type O POSITIVE Antibody Screen Negative Laboratory Results - last 24 hr 07/29/17 07/29/17 07/29/17 08:51 15:30 18:54 WBC 7.6 RBC 2.28 L Hgb 7.1 L Hct 20.5 L MCV 90.1 MCH 31.0 MCHC 34.4 RDW 16.4 H Plt Count 114 L MPV 9.2 Neut % (Auto) 81.4 H Lymph % (Auto) 10.7 L Gilliam % (Auto) 5.1 Eos % (Auto) 1.7 Baso % (Auto) 1.1 Neut # (Auto) 6.2 Lymph # (Auto) 0.8 L Gilliam # (Auto) 0.4 Eos # (Auto) 0.1 Baso # (Auto) 0.1 Neutrophils % (Manual) Lymphocytes % (Manual) Monocytes % (Manual) Eosinophils % (Manual) Differential Comment Toxic Granulation Platelet Estimate Large Platelets Giant Platelets Polychromasia Hypochromasia (manual) Anisocytosis (manual) Macrocytosis (manual) PT INR APTT Sodium Potassium Chloride Carbon Dioxide Anion Gap BUN Creatinine Est GFR ( Amer) Est GFR (Non-Af Amer) POC Glucose (mg/dL) 93 Random Glucose Calcium Phosphorus Magnesium Total Bilirubin AST ALT Alkaline Phosphatase Total Protein Albumin Globulin Albumin/Globulin Ratio Blood Type O POSITIVE Antibody Screen Negative 07/30/17 07/30/17 07/30/17 01:21 01:24 04:00 WBC RBC Hgb Hct MCV MCH MCHC RDW Plt Count MPV Neut % (Auto) Lymph % (Auto) Gilliam % (Auto) Eos % (Auto) Baso % (Auto) Neut # (Auto) Lymph # (Auto) Gilliam # (Auto) Eos # (Auto) Baso # (Auto) Neutrophils % (Manual) Lymphocytes % (Manual) Monocytes % (Manual) Eosinophils % (Manual) Differential Comment Toxic Granulation Platelet Estimate Large Platelets Giant Platelets Polychromasia Hypochromasia (manual) Anisocytosis (manual) Macrocytosis (manual) PT 11.9 INR 1.1 APTT 31 Sodium Potassium Chloride Carbon Dioxide Anion Gap BUN Creatinine Est GFR ( Amer) Est GFR (Non-Af Amer) POC Glucose (mg/dL) 68 70 Random Glucose Calcium Phosphorus Magnesium Total Bilirubin AST ALT Alkaline Phosphatase Total Protein Albumin Globulin Albumin/Globulin Ratio Blood Type Antibody Screen 07/30/17 07/30/17 07/30/17 05:14 06:25 06:25 WBC 8.8 RBC 3.21 L Hgb 9.8 L D Hct 28.1 L MCV 87.5 D MCH 30.5 MCHC 34.8 RDW 16.3 H Plt Count 105 L MPV 9.4 Neut % (Auto) 85.5 H Lymph % (Auto) 6.8 L Gilliam % (Auto) 5.2 Eos % (Auto) 1.8 Baso % (Auto) 0.7 Neut # (Auto) 7.5 H Lymph # (Auto) 0.6 L Gilliam # (Auto) 0.5 Eos # (Auto) 0.2 Baso # (Auto) 0.1 Neutrophils % (Manual) 88 H Lymphocytes % (Manual) 4 L Monocytes % (Manual) 6 Eosinophils % (Manual) 2 Differential Comment Toxic Granulation Present Platelet Estimate Slightly decreased L Large Platelets Present Giant Platelets Present Polychromasia Slight Hypochromasia (manual) Slight Anisocytosis (manual) Slight Macrocytosis (manual) Slight PT INR APTT Sodium 142 Potassium 3.9 Chloride 105 Carbon Dioxide 29 Anion Gap 12 BUN 23 H Creatinine 3.1 H Est GFR ( Amer) 23 Est GFR (Non-Af Amer) 19 POC Glucose (mg/dL) 96 Random Glucose 97 Calcium 8.0 L Phosphorus 2.0 L Magnesium 1.8 Total Bilirubin 0.7 AST 25 ALT 24 Alkaline Phosphatase 52 Total Protein 5.2 L Albumin 2.6 L Globulin 2.7 Albumin/Globulin Ratio 1.0 Blood Type Antibody Screen Fingerstick Blood Sugar Results: 80 Critical Care Progress Note - Nutrition Nutrition: Nutrition Category Date Time Status Liquid Diet [DIET] Diets 07/30/17 Breakfast Active Assessment/Plan - Assessment and Plan (Free Text) Assessment: 81M GIB Plan: Neuro: No acute issues Cardio: History of Afib with pacemaker L. SC. Anticoag held 06/25 to GI bleed Pulm: No acute issues GI: UGIB - Had EGD showing 2 bleeding duodenal ulcer and one visible nonbleeding ulcer in the fundus. Patient was taken back for EGD on 07/28 due consistent drop in HgB. Ulcers no longer bleeding at that time. Patient continued to bleed evidenced by melanotic stool mixed with bright red blood. Patient sent for stat bleeding scan. Surgery consult (Amonate). GI (Rufus). patient for colonoscopy today. IR states need CTA while actively bleeding for embolization. will follow colonoscopy * Transfused 2 units FFP, 5 units PRBC, Vitamin k * Protonix * CLD Renal: ESRD on HD MWF. Permacath in R. SC. 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 Nephro (Hajal) * vitamin C * Procrit * Vit D * Vit B Endo: no acute issues ID: No acute issues PPX: SCD. Protonix <IsaacfLaw M - Last Filed: 07/30/17 14:14> CCU Objective - Vital Signs / Intake & Output Vital Signs (Last 4 hours): Vital Signs Temp Pulse Resp BP Pulse Ox 07/30/17 13:00 90 14 100 07/30/17 12:56 87 16 129/54 L 100 07/30/17 12:22 87 15 108/46 L 100 07/30/17 12:00 98.4 F 97 H 16 100 07/30/17 11:52 101 H 16 130/49 L 100 07/30/17 11:22 88 14 109/43 L 100 07/30/17 11:00 64 16 100 07/30/17 10:52 85 15 124/42 L 100 07/30/17 10:22 87 14 152/54 H 100 Intake and Output (Last 8hrs): Intake & Output 07/29/17 07/30/17 07/30/17 22:59 06:59 14:59 Intake Total 627 325 240 Output Total 1 1 Balance 627 324 239 Weight 106 lb 8 oz Intake: Intake, IV Amount 50 325 240 Right Distal Port Femoral 245 210 Right Proximal Port 50 80 30 Femoral Blood Product 552 Apheresis Rbc Cp2d As3 Lr 227 1st Unit [id number] Red Blood Cells Cpd As1 325 Lr Unit [id number] Other 25 Apheresis Rbc Cp2d As3 Lr 25 1st Unit [id number] Output: Stool 1 Urine/Stool Mix 1 Other: # Bowel Movements 1 - Medications Active Medications: Active Medications Generic Name Dose Route Start Last Admin Trade Name Lexie PRN Reason Stop Dose Admin Ascorbic Acid 500 mg 07/27/17 10:00 07/30/17 10:48 Vitamin C 500 Mg Tab PO 500 mg DAILY RO Administration Epoetin Javed 10,000 unit 07/27/17 10:00 07/29/17 17:59 Procrit IV 08/07/17 10:01 10,000 unit TTS RO Administration Ergocalciferol 1 cap 07/26/17 20:15 07/26/17 21:29 Drisdol 50,000 Intl Units Cap PO Not Given Q7D RO Dextrose/Sodium Chloride 1,000 mls @ 30 mls/hr 07/30/17 01:30 07/30/17 01:37 Dextrose 5%/0.9% Ns 1000 Ml IV 07/31/17 01:27 30 mls/hr .Q24H ONE Administration Mupirocin 0 gm 07/29/17 11:15 07/30/17 10:49 Bactroban Ointment TOP 1 applic BID RO Administration Pantoprazole Sodium 40 mg 07/30/17 09:30 07/30/17 09:52 Protonix Inj IVP 40 mg Q12H RO Administration Phytonadione 10 mg 07/28/17 11:00 07/30/17 09:53 Vitamin K Inj SC 08/01/17 10:01 10 mg DAILY RO Administration Potassium Phos/Sodium Phos 1 pkt 07/30/17 10:00 07/30/17 10:49 Neutra-Phos PO 1 pkt DAILY RO Administration Vitamin B Complex/Vit C/Folic Acid 1 tab 07/27/17 08:00 07/30/17 08:00 Nephro-Xavier PO Not Given 0800 RO - Patient Studies Lab Studies: Lab Studies 07/30/17 07/30/17 07/30/17 Range/Units 12:19 12:01 08:53 WBC 9.6 (4.8-10.8) K/uL RBC 3.01 L (4.40-5.90) Mil/uL Hgb 9.1 L (12.0-18.0) g/dL Hct 26.6 L (35.0-51.0) % MCV 88.4 (80.0-94.0) fL MCH 30.4 (27.0-31.0) pg MCHC 34.4 (33.0-37.0) g/dL RDW 16.5 H (11.5-14.5) % Plt Count 107 L (130-400) K/uL MPV 9.1 (7.2-11.7) fL Neut % (Auto) 84.1 H (50.0-75.0) % Lymph % (Auto) 7.5 L (20.0-40.0) % Gilliam % (Auto) 5.8 (0.0-10.0) % Eos % (Auto) 1.8 (0.0-4.0) % Baso % (Auto) 0.8 (0.0-2.0) % Neut # (Auto) 8.1 H (1.8-7.0) K/uL Lymph # (Auto) 0.7 L (1.0-4.3) K/uL Gilliam # (Auto) 0.6 (0.0-0.8) K/uL Eos # (Auto) 0.2 (0.0-0.7) K/uL Baso # (Auto) 0.1 (0.0-0.2) K/uL Neutrophils % (Manual) 89 H (50-75) % Lymphocytes % (Manual) 5 L (20-40) % Monocytes % (Manual) 4 (0-10) % Eosinophils % (Manual) 2 (0-4) % Nucleated RBC % 1 H (0-0) % Differential Comment Toxic Granulation Platelet Estimate Slightly decreased L (NORMAL) Large Platelets Present Giant Platelets Polychromasia Slight Hypochromasia (manual) Slight Anisocytosis (manual) Slight Macrocytosis (manual) PT (9.7-12.2) SECONDS INR APTT (21-34) SECONDS Sodium (132-148) mmol/L Potassium (3.6-5.2) mmol/L Chloride (98-107) mmol/L Carbon Dioxide (22-30) mmol/L Anion Gap (10-20) BUN (9-20) mg/dL Creatinine (0.8-1.5) mg/dL Est GFR ( Amer) Est GFR (Non-Af Amer) POC Glucose (mg/dL) 142 H 80 (65-110) mg/dL Random Glucose (75-110) mg/dL Calcium (8.6-10.4) mg/dl Phosphorus (2.5-4.5) mg/dL Magnesium (1.6-2.3) mg/dL Total Bilirubin (0.2-1.3) mg/dL AST (17-59) U/L ALT (21-72) U/L Alkaline Phosphatase (38-126) U/L Total Protein (6.3-8.3) g/dL Albumin (3.5-5.0) g/dL Globulin (2.2-3.9) gm/dL Albumin/Globulin Ratio (1.0-2.1) Blood Type Antibody Screen 07/30/17 07/30/17 07/30/17 Range/Units 06:25 06:25 05:14 WBC 8.8 (4.8-10.8) K/uL RBC 3.21 L (4.40-5.90) Mil/uL Hgb 9.8 L D (12.0-18.0) g/dL Hct 28.1 L (35.0-51.0) % MCV 87.5 D (80.0-94.0) fL MCH 30.5 (27.0-31.0) pg MCHC 34.8 (33.0-37.0) g/dL RDW 16.3 H (11.5-14.5) % Plt Count 105 L (130-400) K/uL MPV 9.4 (7.2-11.7) fL Neut % (Auto) 85.5 H (50.0-75.0) % Lymph % (Auto) 6.8 L (20.0-40.0) % Gilliam % (Auto) 5.2 (0.0-10.0) % Eos % (Auto) 1.8 (0.0-4.0) % Baso % (Auto) 0.7 (0.0-2.0) % Neut # (Auto) 7.5 H (1.8-7.0) K/uL Lymph # (Auto) 0.6 L (1.0-4.3) K/uL Gilliam # (Auto) 0.5 (0.0-0.8) K/uL Eos # (Auto) 0.2 (0.0-0.7) K/uL Baso # (Auto) 0.1 (0.0-0.2) K/uL Neutrophils % (Manual) 88 H (50-75) % Lymphocytes % (Manual) 4 L (20-40) % Monocytes % (Manual) 6 (0-10) % Eosinophils % (Manual) 2 (0-4) % Nucleated RBC % (0-0) % Differential Comment Toxic Granulation Present Platelet Estimate Slightly decreased L (NORMAL) Large Platelets Present Giant Platelets Present Polychromasia Slight Hypochromasia (manual) Slight Anisocytosis (manual) Slight Macrocytosis (manual) Slight PT (9.7-12.2) SECONDS INR APTT (21-34) SECONDS Sodium 142 (132-148) mmol/L Potassium 3.9 (3.6-5.2) mmol/L Chloride 105 (98-107) mmol/L Carbon Dioxide 29 (22-30) mmol/L Anion Gap 12 (10-20) BUN 23 H (9-20) mg/dL Creatinine 3.1 H (0.8-1.5) mg/dL Est GFR ( Amer) 23 Est GFR (Non-Af Amer) 19 POC Glucose (mg/dL) 96 (65-110) mg/dL Random Glucose 97 (75-110) mg/dL Calcium 8.0 L (8.6-10.4) mg/dl Phosphorus 2.0 L (2.5-4.5) mg/dL Magnesium 1.8 (1.6-2.3) mg/dL Total Bilirubin 0.7 (0.2-1.3) mg/dL AST 25 (17-59) U/L ALT 24 (21-72) U/L Alkaline Phosphatase 52 (38-126) U/L Total Protein 5.2 L (6.3-8.3) g/dL Albumin 2.6 L (3.5-5.0) g/dL Globulin 2.7 (2.2-3.9) gm/dL Albumin/Globulin Ratio 1.0 (1.0-2.1) Blood Type Antibody Screen 07/30/17 07/30/17 07/30/17 Range/Units 04:00 01:24 01:21 WBC (4.8-10.8) K/uL RBC (4.40-5.90) Mil/uL Hgb (12.0-18.0) g/dL Hct (35.0-51.0) % MCV (80.0-94.0) fL MCH (27.0-31.0) pg MCHC (33.0-37.0) g/dL RDW (11.5-14.5) % Plt Count (130-400) K/uL MPV (7.2-11.7) fL Neut % (Auto) (50.0-75.0) % Lymph % (Auto) (20.0-40.0) % Gilliam % (Auto) (0.0-10.0) % Eos % (Auto) (0.0-4.0) % Baso % (Auto) (0.0-2.0) % Neut # (Auto) (1.8-7.0) K/uL Lymph # (Auto) (1.0-4.3) K/uL Gilliam # (Auto) (0.0-0.8) K/uL Eos # (Auto) (0.0-0.7) K/uL Baso # (Auto) (0.0-0.2) K/uL Neutrophils % (Manual) (50-75) % Lymphocytes % (Manual) (20-40) % Monocytes % (Manual) (0-10) % Eosinophils % (Manual) (0-4) % Nucleated RBC % (0-0) % Differential Comment Toxic Granulation Platelet Estimate (NORMAL) Large Platelets Giant Platelets Polychromasia Hypochromasia (manual) Anisocytosis (manual) Macrocytosis (manual) PT 11.9 (9.7-12.2) SECONDS INR 1.1 APTT 31 (21-34) SECONDS Sodium (132-148) mmol/L Potassium (3.6-5.2) mmol/L Chloride (98-107) mmol/L Carbon Dioxide (22-30) mmol/L Anion Gap (10-20) BUN (9-20) mg/dL Creatinine (0.8-1.5) mg/dL Est GFR ( Amer) Est GFR (Non-Af Amer) POC Glucose (mg/dL) 70 68 (65-110) mg/dL Random Glucose (75-110) mg/dL Calcium (8.6-10.4) mg/dl Phosphorus (2.5-4.5) mg/dL Magnesium (1.6-2.3) mg/dL Total Bilirubin (0.2-1.3) mg/dL AST (17-59) U/L ALT (21-72) U/L Alkaline Phosphatase (38-126) U/L Total Protein (6.3-8.3) g/dL Albumin (3.5-5.0) g/dL Globulin (2.2-3.9) gm/dL Albumin/Globulin Ratio (1.0-2.1) Blood Type Antibody Screen 07/29/17 07/29/17 07/29/17 Range/Units 18:54 15:30 08:51 WBC 7.6 (4.8-10.8) K/uL RBC 2.28 L (4.40-5.90) Mil/uL Hgb 7.1 L (12.0-18.0) g/dL Hct 20.5 L (35.0-51.0) % MCV 90.1 (80.0-94.0) fL MCH 31.0 (27.0-31.0) pg MCHC 34.4 (33.0-37.0) g/dL RDW 16.4 H (11.5-14.5) % Plt Count 114 L (130-400) K/uL MPV 9.2 (7.2-11.7) fL Neut % (Auto) 81.4 H (50.0-75.0) % Lymph % (Auto) 10.7 L (20.0-40.0) % Gilliam % (Auto) 5.1 (0.0-10.0) % Eos % (Auto) 1.7 (0.0-4.0) % Baso % (Auto) 1.1 (0.0-2.0) % Neut # (Auto) 6.2 (1.8-7.0) K/uL Lymph # (Auto) 0.8 L (1.0-4.3) K/uL Gilliam # (Auto) 0.4 (0.0-0.8) K/uL Eos # (Auto) 0.1 (0.0-0.7) K/uL Baso # (Auto) 0.1 (0.0-0.2) K/uL Neutrophils % (Manual) (50-75) % Lymphocytes % (Manual) (20-40) % Monocytes % (Manual) (0-10) % Eosinophils % (Manual) (0-4) % Nucleated RBC % (0-0) % Differential Comment Toxic Granulation Platelet Estimate (NORMAL) Large Platelets Giant Platelets Polychromasia Hypochromasia (manual) Anisocytosis (manual) Macrocytosis (manual) PT (9.7-12.2) SECONDS INR APTT (21-34) SECONDS Sodium (132-148) mmol/L Potassium (3.6-5.2) mmol/L Chloride (98-107) mmol/L Carbon Dioxide (22-30) mmol/L Anion Gap (10-20) BUN (9-20) mg/dL Creatinine (0.8-1.5) mg/dL Est GFR ( Amer) Est GFR (Non-Af Amer) POC Glucose (mg/dL) 93 (65-110) mg/dL Random Glucose (75-110) mg/dL Calcium (8.6-10.4) mg/dl Phosphorus (2.5-4.5) mg/dL Magnesium (1.6-2.3) mg/dL Total Bilirubin (0.2-1.3) mg/dL AST (17-59) U/L ALT (21-72) U/L Alkaline Phosphatase (38-126) U/L Total Protein (6.3-8.3) g/dL Albumin (3.5-5.0) g/dL Globulin (2.2-3.9) gm/dL Albumin/Globulin Ratio (1.0-2.1) Blood Type O POSITIVE Antibody Screen Negative Laboratory Results - last 24 hr 07/29/17 07/29/17 07/29/17 08:51 15:30 18:54 WBC 7.6 RBC 2.28 L Hgb 7.1 L Hct 20.5 L MCV 90.1 MCH 31.0 MCHC 34.4 RDW 16.4 H Plt Count 114 L MPV 9.2 Neut % (Auto) 81.4 H Lymph % (Auto) 10.7 L Gilliam % (Auto) 5.1 Eos % (Auto) 1.7 Baso % (Auto) 1.1 Neut # (Auto) 6.2 Lymph # (Auto) 0.8 L Gilliam # (Auto) 0.4 Eos # (Auto) 0.1 Baso # (Auto) 0.1 Neutrophils % (Manual) Lymphocytes % (Manual) Monocytes % (Manual) Eosinophils % (Manual) Nucleated RBC % Differential Comment Toxic Granulation Platelet Estimate Large Platelets Giant Platelets Polychromasia Hypochromasia (manual) Anisocytosis (manual) Macrocytosis (manual) PT INR APTT Sodium Potassium Chloride Carbon Dioxide Anion Gap BUN Creatinine Est GFR ( Amer) Est GFR (Non-Af Amer) POC Glucose (mg/dL) 93 Random Glucose Calcium Phosphorus Magnesium Total Bilirubin AST ALT Alkaline Phosphatase Total Protein Albumin Globulin Albumin/Globulin Ratio Blood Type O POSITIVE Antibody Screen Negative 07/30/17 07/30/17 07/30/17 01:21 01:24 04:00 WBC RBC Hgb Hct MCV MCH MCHC RDW Plt Count MPV Neut % (Auto) Lymph % (Auto) Gilliam % (Auto) Eos % (Auto) Baso % (Auto) Neut # (Auto) Lymph # (Auto) Gilliam # (Auto) Eos # (Auto) Baso # (Auto) Neutrophils % (Manual) Lymphocytes % (Manual) Monocytes % (Manual) Eosinophils % (Manual) Nucleated RBC % Differential Comment Toxic Granulation Platelet Estimate Large Platelets Giant Platelets Polychromasia Hypochromasia (manual) Anisocytosis (manual) Macrocytosis (manual) PT 11.9 INR 1.1 APTT 31 Sodium Potassium Chloride Carbon Dioxide Anion Gap BUN Creatinine Est GFR ( Amer) Est GFR (Non-Af Amer) POC Glucose (mg/dL) 68 70 Random Glucose Calcium Phosphorus Magnesium Total Bilirubin AST ALT Alkaline Phosphatase Total Protein Albumin Globulin Albumin/Globulin Ratio Blood Type Antibody Screen 07/30/17 07/30/17 07/30/17 05:14 06:25 06:25 WBC 8.8 RBC 3.21 L Hgb 9.8 L D Hct 28.1 L MCV 87.5 D MCH 30.5 MCHC 34.8 RDW 16.3 H Plt Count 105 L MPV 9.4 Neut % (Auto) 85.5 H Lymph % (Auto) 6.8 L Gilliam % (Auto) 5.2 Eos % (Auto) 1.8 Baso % (Auto) 0.7 Neut # (Auto) 7.5 H Lymph # (Auto) 0.6 L Gilliam # (Auto) 0.5 Eos # (Auto) 0.2 Baso # (Auto) 0.1 Neutrophils % (Manual) 88 H Lymphocytes % (Manual) 4 L Monocytes % (Manual) 6 Eosinophils % (Manual) 2 Nucleated RBC % Differential Comment Toxic Granulation Present Platelet Estimate Slightly decreased L Large Platelets Present Giant Platelets Present Polychromasia Slight Hypochromasia (manual) Slight Anisocytosis (manual) Slight Macrocytosis (manual) Slight PT INR APTT Sodium 142 Potassium 3.9 Chloride 105 Carbon Dioxide 29 Anion Gap 12 BUN 23 H Creatinine 3.1 H Est GFR ( Amer) 23 Est GFR (Non-Af Amer) 19 POC Glucose (mg/dL) 96 Random Glucose 97 Calcium 8.0 L Phosphorus 2.0 L Magnesium 1.8 Total Bilirubin 0.7 AST 25 ALT 24 Alkaline Phosphatase 52 Total Protein 5.2 L Albumin 2.6 L Globulin 2.7 Albumin/Globulin Ratio 1.0 Blood Type Antibody Screen 07/30/17 07/30/17 07/30/17 08:53 12:01 12:19 WBC 9.6 RBC 3.01 L Hgb 9.1 L Hct 26.6 L MCV 88.4 MCH 30.4 MCHC 34.4 RDW 16.5 H Plt Count 107 L MPV 9.1 Neut % (Auto) 84.1 H Lymph % (Auto) 7.5 L [place] % (Auto) 5.8 Eos % (Auto) 1.8 Baso % (Auto) 0.8 Neut # (Auto) 8.1 H Lymph # (Auto) 0.7 L [place] # (Auto) 0.6 Eos # (Auto) 0.2 Baso # (Auto) 0.1 Neutrophils % (Manual) 89 H Lymphocytes % (Manual) 5 L Monocytes % (Manual) 4 Eosinophils % (Manual) 2 Nucleated RBC % 1 H Differential Comment Toxic Granulation Platelet Estimate Slightly decreased L Large Platelets Present Giant Platelets Polychromasia Slight Hypochromasia (manual) Slight Anisocytosis (manual) Slight Macrocytosis (manual) PT INR APTT Sodium Potassium Chloride Carbon Dioxide Anion Gap BUN Creatinine Est GFR ( Amer) Est GFR (Non-Af Amer) POC Glucose (mg/dL) 80 142 H Random Glucose Calcium Phosphorus Magnesium Total Bilirubin AST ALT Alkaline Phosphatase Total Protein Albumin Globulin Albumin/Globulin Ratio Blood Type Antibody Screen Critical Care Progress Note - Nutrition Nutrition: Nutrition Category Date Time Status Liquid Diet [DIET] Diets 07/30/17 Breakfast Active Attending/Attestation - Attestation I have personally seen and examined this patient.: Yes I have fully participated in the care of the patient.: Yes I have reviewed all pertinent clinical information: Yes Notes (Text): 07/30/17 14:13 Today: Sunday, July 30, 2017 The Patient was seen and examined at the bedside, Medical records reviewed, and management issues were discussed and formulated with the house staff. I have reviewed all the relevant clinical, laboratory, hemodynamic, radiographic data and medications Events reviewed Pain issues, skin care, head of the bed elevation, glycemic control were addressed. Agree with above resident's assessment and treatment plans of care as transcribed in Dr. Sam note.
[2017-07-30 12:22] LABS: BASO # 0.1 K/uL (0.0-0.2); BASO % 0.8 % (0.0-2.0); EOS # 0.2 K/uL (0.0-0.7); EOS % 1.8 % (0.0-4.0); HEMOGLOBIN 9.1 g/dL (12.0-18.0); LYMPH # 0.7 K/uL (1.0-4.3); LYMPH % 7.5 % (20.0-40.0); MEAN CELL VOLUME 88.4 fL (80.0-94.0); MEAN CORPUSCULAR HEMOGLOBIN 30.4 pg (27.0-31.0); MEAN CORPUSCULAR HGB CONC 34.4 g/dL (33.0-37.0); MEAN PLATELET VOLUME 9.1 fL (7.2-11.7); MONO # 0.6 K/uL (0.0-0.8); MONO % 5.8 % (0.0-10.0); NEUT # 8.1 K/uL (1.8-7.0); NEUT % 84.1 % (50.0-75.0); NRBC % 0.1 % (0.0-2.0); PLATELET COUNT 107 K/uL (130-400); RBC 3.01 Mil/uL (4.40-5.90); RED CELL DISTRIBUTION WIDTH 16.5 % (11.5-14.5); WHITE BLOOD COUNT 9.6 K/uL (4.8-10.8)
[2017-07-30 13:03] LABS: EOSINOPHIL 2 % (0-4); LYMPHOCYTE 5 % (20-40); MONOCYTE 4 % (0-10); NEUTROPHIL 89 % (50-75); NUCLEATED RED BLOOD CELL 1 % (0-0); PLATELET ESTIMATE SLIGHTLY DECREASED (NORMAL); TOTAL CELLS COUNTED 100
[2017-07-30 13:04] LABS: ANISOCYTOSIS SLIGHT; HYPOCHROMIC SLIGHT; LARGE PLATELETS PRESENT; POLYCHROMIC SLIGHT
--- NOTE | 2017-07-30 15:34 | CP.PCM.PN ---
Subjective - Date & Time of Evaluation Date of Evaluation: 07/30/17 Time of Evaluation: 07:00 - Subjective Subjective: Surgery: Dr. Clemente Pt seen and examined. No acute events overnight. Pt received 2 units PRBCs yesterday with an appropriate response. He hasn't had any more bloody BMs as per discussion with nurse. Hemodynamically improved. Objective - Vital Signs/Intake and Output Vital Signs (last 24 hours): Temp Pulse Resp BP Pulse Ox 98.4 F 79 17 101/31 L 94 L 07/30/17 12:00 07/30/17 15:00 07/30/17 15:00 07/30/17 14:56 07/30/17 15:00 Intake and Output: 07/30/17 07/30/17 06:59 18:59 Intake Total 365 400 Output Total 1 1 Balance 364 399 - Medications Medications: Current Medications Ascorbic Acid (Vitamin C 500 Mg Tab) 500 mg PO DAILY [facility] Last Admin: 07/30/17 10:48 Dose: 500 mg Epoetin Javed (Procrit) 10,000 unit IV TTS [facility] Stop: 08/07/17 10:01 Last Admin: 07/29/17 17:59 Dose: 10,000 unit Ergocalciferol (Drisdol 50,000 Intl Units Cap) 1 cap PO Q7D [facility] Last Admin: 07/26/17 21:29 Dose: Not Given Dextrose/Sodium Chloride (Dextrose 5%/0.9% Ns 1000 Ml) 1,000 mls @ 30 mls/hr IV .Q24H ONE Stop: 07/31/17 01:27 Last Admin: 07/30/17 01:37 Dose: 30 mls/hr Mupirocin (Bactroban Ointment) 0 gm TOP BID [facility] Last Admin: 07/30/17 10:49 Dose: 1 applic Pantoprazole Sodium (Protonix Inj) 40 mg IVP Q12H [facility] Last Admin: 07/30/17 09:52 Dose: 40 mg Phytonadione (Vitamin K Inj) 10 mg SC DAILY [facility] Stop: 08/01/17 10:01 Last Admin: 07/30/17 09:53 Dose: 10 mg Potassium Phos/Sodium Phos (Neutra-Phos) 1 pkt PO DAILY [facility] Last Admin: 07/30/17 10:49 Dose: 1 pkt Vitamin B Complex/Vit C/Folic Acid (Nephro-Xavier) 1 tab PO 0800 RO Last Admin: 07/30/17 08:00 Dose: Not Given - Labs Labs: 07/30/17 12:19 07/30/17 06:25 PT 11.9 SECONDS (9.7-12.2) 07/30/17 04:00 INR 1.1 07/30/17 04:00 APTT 31 SECONDS (21-34) 07/30/17 04:00 - Constitutional Appears: Well, No Acute Distress - Head Exam Head Exam: ATRAUMATIC, NORMOCEPHALIC - ENT Exam ENT Exam: Mucous Membranes Moist - Cardiovascular Exam Cardiovascular Exam: RRR - GI/Abdominal Exam GI & Abdominal Exam: Soft. absent: Distended, Tenderness - Neurological Exam Neurological Exam: Alert, Awake - Skin Skin Exam: Dry, Warm Assessment and Plan - Assessment and Plan (Free Text) Assessment: 81M with GI bleed; s/p endoscopy & colonoscopy with no source of bleeding identified Plan: - cont to monitor H/H - monitor bowel function for bloody BMs - GI recs getting CTA with IR if pt with acute bleeding again - no further surgical intervention at this time - d/w Dr. Chyna Cordova, PGY-3
--- NOTE | 2017-07-30 22:02 | PN ---
DATE: SUBJECTIVE: The patient is sleepy and at times lethargic. No reported significant hypertension. The patient is off Levophed. No reported GI bleeding. PHYSICAL EXAMINATION: VITAL SIGNS: Blood pressure 101/31, heart rate 72, temperature 98.4, earlier blood pressure was 130/49. HEENT: Pale conjunctivae. CHEST: Diminished breath sounds over the bases. HEART: Heart sounds regular. EXTREMITIES: 1+ pitting edema. LABORATORY DATA: Hemoglobin and hematocrit 9.1 and 26.6, white count 9.6, platelet count 107,000. Today, SMA-7 is within normal limits, except for BUN and creatinine of 23 and 3.1. Calcium is 8.0, below normal and phosphorus is 2.0 below normal. ASSESSMENT: 1. Gastrointestinal bleeding. 2. Status post single chamber ventricular pacemaker placement. 3. End stage renal disease, on hemodialysis. 4. Anemia. 5. and hypophosphatemia. RECOMMENDATIONS: Continue current Neutra Phos replacement and IV Protonix at 20 mg every 12 hours. Desmopressin was discontinued today as well as heparin for hemodialysis. Miah Gallagher MD
--- NOTE | 2017-07-31 01:28 | PN ---
DATE: 07/30/2017 SUBJECTIVE: The patient is seen today, 07/30/2017. He is not having further obvious GI bleeding. Hemoglobin is 9.8 and hematocrit 28.1. PHYSICAL EXAMINATION: VITAL SIGNS: Blood pressure is 127/53, temperature 98.2, respiratory rate 16, and pulse 83. HEENT: Slightly pale mucosa of the conjunctivae. NECK: Supple. No JVD. No carotid bruit. No lymph node. No thyromegaly. CHEST/LUNGS: Bilateral symmetrical expansion. Good air exchange. No rales, no rhonchi. CARDIOVASCULAR: PMI not localized. S1, S2. No additional sounds. ABDOMEN: Normoactive bowel sounds. No tenderness. No organomegaly. No masses. EXTREMITIES: No cyanosis, no clubbing, no edema. INTEGRITY CONSULTANT: Alert, awake, oriented x2. No neurological deficit could be appreciated. ASSESSMENT: 1. Gastrointestinal bleeding, likely upper. 2. Anemia of acute blood loss. 3. Endstage renal disease, on hemodialysis. 4. Hypertension. PLAN: Continue current medications and follow GI recommendations. We will supplement phosphorus as the patient's phosphorus is low. Jody Krishnamurthy MD
[2017-07-31 06:32] LABS: ALB/GLOB RATIO 0.9 (1.0-2.1); ALBUMIN 2.5 g/dL (3.5-5.0)
[2017-07-31 06:55] LABS: BASO % 0.6 % (0.0-2.0); EOS # 0.2 K/uL (0.0-0.7); EOS % 2.2 % (0.0-4.0); HEMOGLOBIN 8.8 g/dL (12.0-18.0); LYMPH # 0.8 K/uL (1.0-4.3); LYMPH % 9.7 % (20.0-40.0); MEAN CELL VOLUME 90.1 fL (80.0-94.0); MEAN CORPUSCULAR HEMOGLOBIN 30.5 pg (27.0-31.0); MEAN CORPUSCULAR HGB CONC 33.9 g/dL (33.0-37.0); MEAN PLATELET VOLUME 9.4 fL (7.2-11.7); MONO # 0.4 K/uL (0.0-0.8); MONO % 5.6 % (0.0-10.0); NEUT # 6.4 K/uL (1.8-7.0); NEUT % 81.9 % (50.0-75.0); NRBC % 0.2 % (0.0-2.0); PLATELET COUNT 106 K/uL (130-400); RBC 2.89 Mil/uL (4.40-5.90); RED CELL DISTRIBUTION WIDTH 16.6 % (11.5-14.5); WHITE BLOOD COUNT 7.8 K/uL (4.8-10.8)
[2017-07-31] MEDS: Multivitamin Vitamin B Complex (Nephro-Vite) Tab PO SCH (08:27)
--- NOTE | 2017-07-31 08:47 | CP.PCM.PN ---
<Perez,Kary - Last Filed: 07/31/17 11:33> Subjective - Date & Time of Evaluation Date of Evaluation: 07/31/17 Time of Evaluation: 11:30 - Subjective Subjective: GI Fellow PGY4 Progress Note Pt seen and evaluated at bedside, no acute events overnight, no sign of GI bleed as per RN, philippe jimenez BM. ROS: 12 point ROS was neg other than above Objective - Vital Signs/Intake and Output Vital Signs (last 24 hours): Temp Pulse Resp BP Pulse Ox 98.4 F 79 13 165/50 H 98 07/31/17 08:00 07/31/17 08:11 07/31/17 08:11 07/31/17 08:11 07/31/17 08:11 Intake and Output: 07/31/17 07/31/17 06:59 18:59 Intake Total 300 120 Output Total 0 Balance 300 120 - Medications Medications: Current Medications Ascorbic Acid (Vitamin C 500 Mg Tab) 500 mg PO DAILY [facility] Last Admin: 07/30/17 10:48 Dose: 500 mg Epoetin Javed (Procrit) 10,000 unit IV TTS [facility] Stop: 08/07/17 10:01 Last Admin: 07/29/17 17:59 Dose: 10,000 unit Ergocalciferol (Drisdol 50,000 Intl Units Cap) 1 cap PO Q7D [facility] Last Admin: 07/26/17 21:29 Dose: Not Given Mupirocin (Bactroban Ointment) 0 gm TOP BID [facility] Last Admin: 07/30/17 18:00 Dose: 1 applic Pantoprazole Sodium (Protonix Inj) 40 mg IVP Q12H [facility] Last Admin: 07/30/17 22:32 Dose: 40 mg Phytonadione (Vitamin K Inj) 10 mg SC DAILY [facility] Stop: 08/01/17 10:01 Last Admin: 07/30/17 09:53 Dose: 10 mg Potassium Phos/Sodium Phos (Neutra-Phos) 1 pkt PO DAILY [facility] Last Admin: 07/30/17 10:49 Dose: 1 pkt Vitamin B Complex/Vit C/Folic Acid (Nephro-Xavier) 1 tab PO 0800 [facility] Last Admin: 07/31/17 08:27 Dose: 1 tab - Labs Labs: 07/31/17 06:03 07/31/17 06:03 PT 11.9 SECONDS (9.7-12.2) 07/30/17 04:00 INR 1.1 07/30/17 04:00 APTT 31 SECONDS (21-34) 07/30/17 04:00 - Constitutional Appears: Non-toxic, No Acute Distress - Head Exam Head Exam: ATRAUMATIC, NORMAL INSPECTION, NORMOCEPHALIC - Eye Exam Eye Exam: EOMI, Normal appearance - ENT Exam ENT Exam: Mucous Membranes Dry - Respiratory Exam Respiratory Exam: Decreased Breath Sounds - Cardiovascular Exam Cardiovascular Exam: REGULAR RHYTHM - GI/Abdominal Exam GI & Abdominal Exam: Soft, Normal Bowel Sounds. absent: Distended, Tenderness - Extremities Exam Extremities Exam: Pedal Edema - Neurological Exam Neurological Exam: Alert - Psychiatric Exam Psychiatric exam: Flat Affect - Skin Skin Exam: Dry, Intact, Normal Color, Warm Assessment and Plan - Assessment and Plan (Free Text) Assessment: This is 81M w/ hx of Anemia, Anxiety, Atrial Fibrillation, Diabetes, HTN, Hypercholesterolemia, End Stage Renal Disease, Chronic Kidney Disease ( hemodialysis) who presented to the ER with Chest Pain. GI consulted for melena and anemia. S/P EGD 07/27/17: multiple ulcers in the duodenum sweep and 2nd portion s/p heat probe, visible vessel at the fundus of the stomach s/p heat probe. S/p EGD 07/28/17: revealed no active bleeding from previous ulceration sites; s/p colonoscopy 07/29/17: revealed altered anatomy s/p extended right sided hemicolectomy with side to side anastomosis with ileum?, only old melena and no active bleeding visualized. + bleeding scan; localizing to cecum? and ascending?, but neg CT angio 1. Anemia 2. Melena-resolved 3. ESRD 4. PVD 5. Dementia Plan: -Continue supportive care -Advance diet as tolerated -Continue PPI 40mg BID -S/p 2 unit PRBC, hgb stable at 8.8 -Continue to monitor h/h -If pt has another recurrent bleed, CT angio immediately and inform IR -No active bleeding found on colonoscopy -No additional GI intervention at this time -Recommend discontinue plavix -Desmopressin 1eith HD for possible uremic platelet dysfunction -Please call with any questions or concerns <Luis A Cruz - Last Filed: 07/31/17 15:29> Objective - Vital Signs/Intake and Output Vital Signs (last 24 hours): Temp Pulse Resp BP Pulse Ox 98.6 F 81 16 117/38 L 98 07/31/17 12:00 07/31/17 14:00 07/31/17 14:00 07/31/17 13:11 07/31/17 14:00 Intake and Output: 07/31/17 07/31/17 06:59 18:59 Intake Total 300 420 Output Total 0 Balance 300 420 - Medications Medications: Current Medications Ascorbic Acid (Vitamin C 500 Mg Tab) 500 mg PO DAILY [facility] Last Admin: 07/31/17 09:27 Dose: 500 mg Epoetin Javed (Procrit) 10,000 unit IV TTS [facility] Stop: 08/07/17 10:01 Last Admin: 07/29/17 17:59 Dose: 10,000 unit Ergocalciferol (Drisdol 50,000 Intl Units Cap) 1 cap PO Q7D [facility] Last Admin: 07/26/17 21:29 Dose: Not Given Mupirocin (Bactroban Ointment) 0 gm TOP BID [facility] Last Admin: 07/31/17 09:27 Dose: 1 applic Pantoprazole Sodium (Protonix Inj) 40 mg IVP Q12H [facility] Last Admin: 07/31/17 09:26 Dose: 40 mg Phytonadione (Vitamin K Inj) 10 mg SC DAILY [facility] Stop: 08/01/17 10:01 Last Admin: 07/31/17 09:26 Dose: 10 mg Potassium Phos/Sodium Phos (Neutra-Phos) 1 pkt PO DAILY [facility] Last Admin: 07/31/17 09:27 Dose: 1 pkt Vitamin B Complex/Vit C/Folic Acid (Nephro-Xavier) 1 tab PO 0800 [facility] Last Admin: 07/31/17 08:27 Dose: 1 tab - Labs Labs: 07/31/17 06:03 07/31/17 06:03 PT 11.9 SECONDS (9.7-12.2) 07/30/17 04:00 INR 1.1 07/30/17 04:00 APTT 31 SECONDS (21-34) 07/30/17 04:00 Attending/Attestation - Attestation I have personally seen and examined this patient.: Yes I have fully participated in the care of the patient.: Yes I have reviewed all pertinent clinical information, including history, physical exam and plan: Yes Notes (Text): 07/31/17 15:28 Patient seen with GI fellow and director medical surgical. This is a 81 year old M with history of Anemia, Anxiety, Atrial Fibrillation, Diabetes, HTN, Hypercholesterolemia, End Stage Renal Disease, Chronic Kidney Disease ( hemodialysis) who presented to the ER with Chest Pain. GI consulted for melena and anemia. S/P EGD 07/27/17: multiple ulcers in the duodenum sweep and 2nd portion s/p heater probe, visible vessel at the fundus of the stomach s/p heater probe. Repeat EGD 07/28/17: revealed no active bleeding from previous ulceration sites; s/p colonoscopy 07/29/17: revealed altered anatomy s/p extended right sided hemicolectomy with side to side anastomosis with ileum?, only old melena and no active bleeding visualized. + bleeding scan; localizing to cecum? and ascending?, but neg CT angio. No bleeding in 48 hours with appropriate response to blood transfusions. Surgical evaluatin appreciated. Will consider desmopressin on HD days for platelet dysfunction and prevent further bleeding. Will start advance diet today. If further episodes of recurrent bleed will benefit from CT angio with IR for possible embolization. Will sign off now. Discussed with agile scrum master
[2017-07-31 09:06] LABS: EOSINOPHIL 1 % (0-4); LYMPHOCYTE 9 % (20-40); MONOCYTE 5 % (0-10); NEUTROPHIL 85 % (50-75); TOTAL CELLS COUNTED 100
[2017-07-31 09:07] LABS: ANISOCYTOSIS MODERATE; PLATELET ESTIMATE SLIGHTLY DECREASED (NORMAL)
[2017-07-31 09:08] LABS: HYPOCHROMIC SLIGHT; LARGE PLATELETS PRESENT; POLYCHROMIC SLIGHT
[2017-07-31] MEDS: Phytonadione 10 mg/ml Inj (Adult) SC SCH (09:26)
[2017-07-31] MEDS: Potassium & Sodium Phosphate PO SCH (09:27)
[2017-07-31] MEDS ORDERED: Desmopressin 15 MCG in Sodium Chloride 0.9% 50 ML IV ONE (14:12)
[2017-07-31] MEDS ORDERED: Desmopressin 4 mcg/ml Inj (1 ml) SC ONE (17:48)
--- NOTE | 2017-07-31 17:51 | CP.CCUPN ---
CCU Subjective - Physician Review Events Since Last Encounter (Free Text): 07/31/17 17:50 Patient with end-stage renal disease on dialysis, anemia, hypertension. Patient was hospitalized to intensive care unit with a lower GI bleed Patient is currently stable now. No active bleeding noted. Patient will be getting the hemodialysis today. Vital signs reviewed No neck vein distention noted Chest good air entry bilaterally, no wheezing or rales noted CVS regular heart sound, no murmur noted Abdomen soft, nontender. Extremities no pedal edema ROUTE SERVICE REPRESENTATIVE alert awake oriented -3, no functional neurological deficit Labs reviewed Subcutaneous desmopressin Assessment and recommendation: 81-year-old male with a history of end-stage renal disease on dialysis admitted with a GI bleed now stable. No active bleeding today patient can be transferred to telemetry CCU Objective - Vital Signs / Intake & Output Vital Signs (Last 4 hours): Vital Signs Temp Pulse Resp BP Pulse Ox 07/31/17 16:12 92 H 11 L 130/26 L 95 07/31/17 16:00 98.6 F 81 17 95 07/31/17 15:12 81 19 142/49 L 97 07/31/17 15:00 83 14 98 07/31/17 14:11 80 14 115/52 L 98 07/31/17 14:00 81 16 98 Intake and Output (Last 8hrs): Intake & Output 07/31/17 07/31/17 07/31/17 06:59 14:59 22:59 Intake Total 180 420 50 Output Total 0 Balance 180 420 50 Weight 105 lb 14.4 oz Intake: Intake, IV Amount 180 0 0 Right Distal Port Femoral 180 0 0 Oral 420 50 Output: Urine 0 Urine, Voided 0 Other: # Voids Urine, Voided 0 0 # Bowel Movements 0 0 - Physical Exam Head: Positive for: Atraumatic, Normocephalic Pupils: Positive for: PERRL Extroacular Muscles: Positive for: EOMI Conjunctiva: Positive for: Normal Mouth: Positive for: Moist Mucous Membranes Neck: Positive for: Normal Range of Motion Respiratory/Chest: Positive for: Clear to Auscultation, Good Air Exchange. Negative for: Respiratory Distress, Accessory Muscle Use Cardiovascular: Positive for: Regular Rate and Rhythm, Normal S1, S2. Negative for: Murmurs Abdomen: Positive for: Normal Bowel Sounds. Negative for: Tenderness, Distention, Peritoneal Signs Neurological: Positive for: GCS=15 Skin: Positive for: Warm, Dry Psychiatric: Positive for: Alert, Oriented x 3 - Medications Active Medications: Active Medications Generic Name Dose Route Start Last Admin Trade Name Lexie PRN Reason Stop Dose Admin Ascorbic Acid 500 mg 07/27/17 10:00 07/31/17 09:27 Vitamin C 500 Mg Tab PO 500 mg DAILY RO Administration Desmopressin Acetate 15 mcg 07/31/17 17:48 Ddavp SC 07/31/17 17:49 ONCE ONE Epoetin Javed 10,000 unit 07/27/17 10:00 07/29/17 17:59 Procrit IV 08/07/17 10:01 10,000 unit TTS RO Administration Ergocalciferol 1 cap 07/26/17 20:15 07/26/17 21:29 Drisdol 50,000 Intl Units Cap PO Not Given Q7D RO Mupirocin 0 gm 07/29/17 11:15 07/31/17 17:16 Bactroban Ointment TOP 1 applic BID RO Administration Pantoprazole Sodium 40 mg 07/30/17 09:30 07/31/17 09:26 Protonix Inj IVP 40 mg Q12H RO Administration Phytonadione 10 mg 07/28/17 11:00 07/31/17 09:26 Vitamin K Inj SC 08/01/17 10:01 10 mg DAILY RO Administration Potassium Phos/Sodium Phos 1 pkt 07/30/17 10:00 07/31/17 09:27 Neutra-Phos PO 1 pkt DAILY RO Administration Vitamin B Complex/Vit C/Folic Acid 1 tab 07/27/17 08:00 07/31/17 08:27 Nephro-Xavier PO 1 tab 0800 RO Administration - Patient Studies Lab Studies: Lab Studies 07/31/17 07/31/17 07/31/17 Range/Units 16:15 11:16 06:03 WBC 7.8 (4.8-10.8) K/uL RBC 2.89 L (4.40-5.90) Mil/uL Hgb 8.8 L (12.0-18.0) g/dL Hct 26.0 L (35.0-51.0) % MCV 90.1 (80.0-94.0) fL MCH 30.5 (27.0-31.0) pg MCHC 33.9 (33.0-37.0) g/dL RDW 16.6 H (11.5-14.5) % Plt Count 106 L (130-400) K/uL MPV 9.4 (7.2-11.7) fL Neut % (Auto) 81.9 H (50.0-75.0) % Lymph % (Auto) 9.7 L (20.0-40.0) % [place] % (Auto) 5.6 (0.0-10.0) % Eos % (Auto) 2.2 (0.0-4.0) % Baso % (Auto) 0.6 (0.0-2.0) % Neut # (Auto) 6.4 (1.8-7.0) K/uL Lymph # (Auto) 0.8 L (1.0-4.3) K/uL [place] # (Auto) 0.4 (0.0-0.8) K/uL Eos # (Auto) 0.2 (0.0-0.7) K/uL Baso # (Auto) 0.0 (0.0-0.2) K/uL Neutrophils % (Manual) 85 H (50-75) % Lymphocytes % (Manual) 9 L (20-40) % Monocytes % (Manual) 5 (0-10) % Eosinophils % (Manual) 1 (0-4) % Platelet Estimate Slightly decreased L (NORMAL) Large Platelets Present Polychromasia Slight Hypochromasia (manual) Slight Anisocytosis (manual) Moderate Macrocytosis (manual) Slight Sodium (132-148) mmol/L Potassium (3.6-5.2) mmol/L Chloride (98-107) mmol/L Carbon Dioxide (22-30) mmol/L Anion Gap (10-20) BUN (9-20) mg/dL Creatinine (0.8-1.5) mg/dL Est GFR ( Amer) Est GFR (Non-Af Amer) POC Glucose (mg/dL) 96 85 (65-110) mg/dL Random Glucose (75-110) mg/dL Calcium (8.6-10.4) mg/dl Phosphorus (2.5-4.5) mg/dL Total Bilirubin (0.2-1.3) mg/dL AST (17-59) U/L ALT (21-72) U/L Alkaline Phosphatase (38-126) U/L Total Protein (6.3-8.3) g/dL Albumin (3.5-5.0) g/dL Globulin (2.2-3.9) gm/dL Albumin/Globulin Ratio (1.0-2.1) 07/31/17 07/31/17 07/30/17 Range/Units 06:03 06:00 23:56 WBC (4.8-10.8) K/uL RBC (4.40-5.90) Mil/uL Hgb (12.0-18.0) g/dL Hct (35.0-51.0) % MCV (80.0-94.0) fL MCH (27.0-31.0) pg MCHC (33.0-37.0) g/dL RDW (11.5-14.5) % Plt Count (130-400) K/uL MPV (7.2-11.7) fL Neut % (Auto) (50.0-75.0) % Lymph % (Auto) (20.0-40.0) % [place] % (Auto) (0.0-10.0) % Eos % (Auto) (0.0-4.0) % Baso % (Auto) (0.0-2.0) % Neut # (Auto) (1.8-7.0) K/uL Lymph # (Auto) (1.0-4.3) K/uL [place] # (Auto) (0.0-0.8) K/uL Eos # (Auto) (0.0-0.7) K/uL Baso # (Auto) (0.0-0.2) K/uL Neutrophils % (Manual) (50-75) % Lymphocytes % (Manual) (20-40) % Monocytes % (Manual) (0-10) % Eosinophils % (Manual) (0-4) % Platelet Estimate (NORMAL) Large Platelets Polychromasia Hypochromasia (manual) Anisocytosis (manual) Macrocytosis (manual) Sodium 140 (132-148) mmol/L Potassium 3.7 (3.6-5.2) mmol/L Chloride 106 (98-107) mmol/L Carbon Dioxide 26 (22-30) mmol/L Anion Gap 12 (10-20) BUN 22 H (9-20) mg/dL Creatinine 4.1 H (0.8-1.5) mg/dL Est GFR ( Amer) 17 Est GFR (Non-Af Amer) 14 POC Glucose (mg/dL) 78 104 (65-110) mg/dL Random Glucose 87 (75-110) mg/dL Calcium 8.0 L (8.6-10.4) mg/dl Phosphorus 2.2 L (2.5-4.5) mg/dL Total Bilirubin 0.8 (0.2-1.3) mg/dL AST 21 (17-59) U/L ALT 21 (21-72) U/L Alkaline Phosphatase 55 (38-126) U/L Total Protein 5.2 L (6.3-8.3) g/dL Albumin 2.5 L (3.5-5.0) g/dL Globulin 2.7 (2.2-3.9) gm/dL Albumin/Globulin Ratio 0.9 L (1.0-2.1) 07/30/17 Range/Units 21:50 WBC (4.8-10.8) K/uL RBC (4.40-5.90) Mil/uL Hgb (12.0-18.0) g/dL Hct (35.0-51.0) % MCV (80.0-94.0) fL MCH (27.0-31.0) pg MCHC (33.0-37.0) g/dL RDW (11.5-14.5) % Plt Count (130-400) K/uL MPV (7.2-11.7) fL Neut % (Auto) (50.0-75.0) % Lymph % (Auto) (20.0-40.0) % [place] % (Auto) (0.0-10.0) % Eos % (Auto) (0.0-4.0) % Baso % (Auto) (0.0-2.0) % Neut # (Auto) (1.8-7.0) K/uL Lymph # (Auto) (1.0-4.3) K/uL [place] # (Auto) (0.0-0.8) K/uL Eos # (Auto) (0.0-0.7) K/uL Baso # (Auto) (0.0-0.2) K/uL Neutrophils % (Manual) (50-75) % Lymphocytes % (Manual) (20-40) % Monocytes % (Manual) (0-10) % Eosinophils % (Manual) (0-4) % Platelet Estimate (NORMAL) Large Platelets Polychromasia Hypochromasia (manual) Anisocytosis (manual) Macrocytosis (manual) Sodium (132-148) mmol/L Potassium (3.6-5.2) mmol/L Chloride (98-107) mmol/L Carbon Dioxide (22-30) mmol/L Anion Gap (10-20) BUN (9-20) mg/dL Creatinine (0.8-1.5) mg/dL Est GFR ( Amer) Est GFR (Non-Af Amer) POC Glucose (mg/dL) 95 (65-110) mg/dL Random Glucose (75-110) mg/dL Calcium (8.6-10.4) mg/dl Phosphorus (2.5-4.5) mg/dL Total Bilirubin (0.2-1.3) mg/dL AST (17-59) U/L ALT (21-72) U/L Alkaline Phosphatase (38-126) U/L Total Protein (6.3-8.3) g/dL Albumin (3.5-5.0) g/dL Globulin (2.2-3.9) gm/dL Albumin/Globulin Ratio (1.0-2.1) Laboratory Results - last 24 hr 07/30/17 07/30/17 07/31/17 21:50 23:56 06:00 WBC RBC Hgb Hct MCV MCH MCHC RDW Plt Count MPV Neut % (Auto) Lymph % (Auto) [place] % (Auto) Eos % (Auto) Baso % (Auto) Neut # (Auto) Lymph # (Auto) [place] # (Auto) Eos # (Auto) Baso # (Auto) Neutrophils % (Manual) Lymphocytes % (Manual) Monocytes % (Manual) Eosinophils % (Manual) Platelet Estimate Large Platelets Polychromasia Hypochromasia (manual) Anisocytosis (manual) Macrocytosis (manual) Sodium Potassium Chloride Carbon Dioxide Anion Gap BUN Creatinine Est GFR ( Amer) Est GFR (Non-Af Amer) POC Glucose (mg/dL) 95 104 78 Random Glucose Calcium Phosphorus Total Bilirubin AST ALT Alkaline Phosphatase Total Protein Albumin Globulin Albumin/Globulin Ratio 07/31/17 07/31/17 07/31/17 06:03 06:03 11:16 WBC 7.8 RBC 2.89 L Hgb 8.8 L Hct 26.0 L MCV 90.1 MCH 30.5 MCHC 33.9 RDW 16.6 H Plt Count 106 L MPV 9.4 Neut % (Auto) 81.9 H Lymph % (Auto) 9.7 L [place] % (Auto) 5.6 Eos % (Auto) 2.2 Baso % (Auto) 0.6 Neut # (Auto) 6.4 Lymph # (Auto) 0.8 L [place] # (Auto) 0.4 Eos # (Auto) 0.2 Baso # (Auto) 0.0 Neutrophils % (Manual) 85 H Lymphocytes % (Manual) 9 L Monocytes % (Manual) 5 Eosinophils % (Manual) 1 Platelet Estimate Slightly decreased L Large Platelets Present Polychromasia Slight Hypochromasia (manual) Slight Anisocytosis (manual) Moderate Macrocytosis (manual) Slight Sodium 140 Potassium 3.7 Chloride 106 Carbon Dioxide 26 Anion Gap 12 BUN 22 H Creatinine 4.1 H Est GFR ( Amer) 17 Est GFR (Non-Af Amer) 14 POC Glucose (mg/dL) 85 Random Glucose 87 Calcium 8.0 L Phosphorus 2.2 L Total Bilirubin 0.8 AST 21 ALT 21 Alkaline Phosphatase 55 Total Protein 5.2 L Albumin 2.5 L Globulin 2.7 Albumin/Globulin Ratio 0.9 L 07/31/17 16:15 WBC RBC Hgb Hct MCV MCH MCHC RDW Plt Count MPV Neut % (Auto) Lymph % (Auto) [place] % (Auto) Eos % (Auto) Baso % (Auto) Neut # (Auto) Lymph # (Auto) [place] # (Auto) Eos # (Auto) Baso # (Auto) Neutrophils % (Manual) Lymphocytes % (Manual) Monocytes % (Manual) Eosinophils % (Manual) Platelet Estimate Large Platelets Polychromasia Hypochromasia (manual) Anisocytosis (manual) Macrocytosis (manual) Sodium Potassium Chloride Carbon Dioxide Anion Gap BUN Creatinine Est GFR ( Amer) Est GFR (Non-Af Amer) POC Glucose (mg/dL) 96 Random Glucose Calcium Phosphorus Total Bilirubin AST ALT Alkaline Phosphatase Total Protein Albumin Globulin Albumin/Globulin Ratio Fingerstick Blood Sugar Results: 85 Critical Care Progress Note - Nutrition Nutrition: Nutrition Category Date Time Status Liquid Diet [DIET] Diets 07/30/17 Breakfast Active
[2017-07-31] MEDS: Epoetin Alfa 10,000 unit/ml Dialysis IV SCH (19:23)
--- NOTE | 2017-07-31 20:46 | PN ---
DATE: SUBJECTIVE: The patient is more cooperative now and oriented to place. No reported hypotension. PHYSICAL EXAMINATION: VITAL SIGNS: Blood pressure 117/68, heart rate 79, respirations 16, temperature 98.6. HEENT: Pale conjunctivae. CHEST: Bibasilar rhonchi. HEART: S1, S2. Regular. EXTREMITIES: No significant muscle wasting. Dressings applied to the right foot with amputated right first and second toes. LABORATORY DATA: Hemoglobin and hematocrit 8.8 and 26.2, white count 7.8, platelet count 106,000. Today's BUN and creatinine are 22 and 4.1 respectively. The patient's SMA-7 is within normal limit. Calcium is 8.0, phosphorus is 2.2. Both calcium and phosphorus are still below normal. ASSESSMENT: 1. Gastrointestinal bleeding. 2. History of single chamber pacemaker placement. 3. Improved hypotension. 4. Endstage renal disease, on hemodialysis. 5. Peripheral vascular disease. 6. Hypocalcemia and hypophosphatemia. RECOMMENDATIONS: Continue Nephro-Xavier and Neutra-Phos. Continue Procrit 10,000 units IV as well as vitamin K 10 mg subcutaneously daily. I did review surgical assessment which stated GI bleed status post endoscopy and colonoscopy with no source of bleeding identified, and the plan is to monitor H and H. Normal bowel function. Consider CTA with Interventional Radiology if bleeding recurs and offer the surgical intervention at this time. Miah Gallagher MD
--- NOTE | 2017-08-01 01:05 | PN ---
DATE: 07/31/2017. SUBJECTIVE: The patient is seen today 07/31/2017. He is not in any cardiopulmonary distress. The patient was seen during hemodialysis. PHYSICAL EXAMINATION: VITAL SIGNS: Blood pressure 134/61, temperature 98.2, respiratory rate and pulse 76. HEENT: Pale mucosa of the conjunctivae. NECK: Supple. No JVD. No carotid bruit. No lymph node. No thyromegaly. CHEST AND LUNGS: Bilateral symmetrical expansion. Good air exchange. No rales, no rhonchi. CARDIOVASCULAR SYSTEM: PMI not localized. S1 and S2. No additional sounds. ABDOMEN: Normoactive bowel sounds. No tenderness. No organomegaly. No masses. EXTREMITIES: No cyanosis, no clubbing, no edema. WOOD TECHNOLOGIST: Alert, awake, oriented x1 and the patient moves all extremities equally. ASSESSMENT: 1. Anemia of acute blood loss. 2. Gastrointestinal bleeding. 3. End-stage renal disease on hemodialysis. PLAN: Monitor hemoglobin and hematocrit. Advance diet as tolerated. Continue hemodialysis. Follow GI recommendations. Jody Krishnamurthy MD
[2017-08-01 05:56] LABS: HEMOGLOBIN 9.2 g/dL (12.0-18.0); MEAN CELL VOLUME 90.5 fL (80.0-94.0); MEAN CORPUSCULAR HEMOGLOBIN 30.4 pg (27.0-31.0); MEAN CORPUSCULAR HGB CONC 33.6 g/dL (33.0-37.0); MEAN PLATELET VOLUME 9.6 fL (7.2-11.7); RBC 3.02 Mil/uL (4.40-5.90); RED CELL DISTRIBUTION WIDTH 16.4 % (11.5-14.5); WHITE BLOOD COUNT 6.3 K/uL (4.8-10.8)
[2017-08-01] MEDS: Multivitamin Vitamin B Complex (Nephro-Vite) Tab PO SCH (08:08)
[2017-08-01] MEDS: Potassium & Sodium Phosphate PO SCH (09:34)
[2017-08-01] MEDS: Phytonadione 10 mg/ml Inj (Adult) SC SCH (09:35)
--- NOTE | 2017-08-01 10:20 | CP.CCUPN ---
CCU Subjective - Physician Review Events Since Last Encounter (Free Text): 08/01/17 10:18 Patient with end-stage renal disease on dialysis, anemia, hypertension. Patient was hospitalized to intensive care unit with a lower GI bleed Patient is currently stable now. No active bleeding noted. Patient will be getting the hemodialysis today. Vital signs reviewed No neck vein distention noted Chest good air entry bilaterally, no wheezing or rales noted CVS regular heart sound, no murmur noted Abdomen soft, nontender. 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 since stable, transferred to floor 08/01/17 10:20 CCU Objective - Vital Signs / Intake & Output Vital Signs (Last 4 hours): Vital Signs Temp Pulse Resp BP Pulse Ox 08/01/17 09:00 76 17 100 08/01/17 08:00 97.9 F 74 15 99 08/01/17 07:54 71 15 160/56 H 97 08/01/17 07:15 79 14 160/70 H 98 Intake and Output (Last 8hrs): Intake & Output 07/31/17 08/01/17 08/01/17 21:59 06:59 14:59 Intake Total 320 Balance 320 Weight 107 lb 4.8 oz Intake: Intake, IV Amount 0 Right Distal Port Femoral 0 Oral 320 Other: # Voids Urine, Voided 0 # Bowel Movements 0 - Physical Exam Head: Positive for: Atraumatic, Normocephalic Pupils: Positive for: PERRL Extroacular Muscles: Positive for: EOMI Conjunctiva: Positive for: Normal Mouth: Positive for: Moist Mucous Membranes Neck: Positive for: Normal Range of Motion Respiratory/Chest: Positive for: Clear to Auscultation, Good Air Exchange. Negative for: Respiratory Distress, Accessory Muscle Use Cardiovascular: Positive for: Regular Rate and Rhythm, Normal S1, S2. Negative for: Murmurs Abdomen: Positive for: Normal Bowel Sounds. Negative for: Tenderness, Distention, Peritoneal Signs Neurological: Positive for: GCS=15 Skin: Positive for: Warm, Dry Psychiatric: Positive for: Alert, Oriented x 3 - Medications Active Medications: Active Medications Generic Name Dose Route Start Last Admin Trade Name Freq PRN Reason Stop Dose Admin Ascorbic Acid 500 mg 07/27/17 10:00 08/01/17 09:34 Vitamin C 500 Mg Tab PO 500 mg DAILY RO Administration Epoetin Javed 10,000 unit 07/27/17 10:00 07/31/17 19:23 Procrit IV 08/07/17 10:01 10,000 unit TTS RO Administration Ergocalciferol 1 cap 07/26/17 20:15 07/26/17 21:29 Drisdol 50,000 Intl Units Cap PO Not Given Q7D RO Mupirocin 0 gm 07/29/17 11:15 08/01/17 09:37 Bactroban Ointment TOP 1 applic BID RO Administration Pantoprazole Sodium 40 mg 07/30/17 09:30 08/01/17 09:35 Protonix Inj IVP 40 mg Q12H RO Administration Potassium Phos/Sodium Phos 1 pkt 07/30/17 10:00 08/01/17 09:34 Neutra-Phos PO 1 pkt DAILY RO Administration Vitamin B Complex/Vit C/Folic Acid 1 tab 07/27/17 08:00 08/01/17 08:08 Nephro-Xavier PO 1 tab 0800 RO Administration - Patient Studies Lab Studies: Lab Studies 08/01/17 08/01/17 08/01/17 Range/Units 07:36 05:51 05:51 WBC 6.3 (4.8-10.8) K/uL RBC 3.02 L (4.40-5.90) Mil/uL Hgb 9.2 L (12.0-18.0) g/dL Hct 27.4 L (35.0-51.0) % MCV 90.5 (80.0-94.0) fL MCH 30.4 (27.0-31.0) pg MCHC 33.6 (33.0-37.0) g/dL RDW 16.4 H (11.5-14.5) % Plt Count 100 L (130-400) K/uL MPV 9.6 (7.2-11.7) fL Sodium 141 (132-148) mmol/L Potassium 3.6 (3.6-5.2) mmol/L Chloride 103 (98-107) mmol/L Carbon Dioxide 30 (22-30) mmol/L Anion Gap 12 (10-20) BUN 10 (9-20) mg/dL Creatinine 2.5 H (0.8-1.5) mg/dL Est GFR ( Amer) 30 Est GFR (Non-Af Amer) 25 POC Glucose (mg/dL) 85 (65-110) mg/dL Random Glucose 72 L (75-110) mg/dL Calcium 8.0 L (8.6-10.4) mg/dl Magnesium 1.7 (1.6-2.3) mg/dL 07/31/17 07/31/17 07/31/17 Range/Units 21:12 16:15 11:16 WBC (4.8-10.8) K/uL RBC (4.40-5.90) Mil/uL Hgb (12.0-18.0) g/dL Hct (35.0-51.0) % MCV (80.0-94.0) fL MCH (27.0-31.0) pg MCHC (33.0-37.0) g/dL RDW (11.5-14.5) % Plt Count (130-400) K/uL MPV (7.2-11.7) fL Sodium (132-148) mmol/L Potassium (3.6-5.2) mmol/L Chloride (98-107) mmol/L Carbon Dioxide (22-30) mmol/L Anion Gap (10-20) BUN (9-20) mg/dL Creatinine (0.8-1.5) mg/dL Est GFR ( Amer) Est GFR (Non-Af Amer) POC Glucose (mg/dL) 93 96 85 (65-110) mg/dL Random Glucose (75-110) mg/dL Calcium (8.6-10.4) mg/dl Magnesium (1.6-2.3) mg/dL Laboratory Results - last 24 hr 07/31/17 07/31/17 07/31/17 11:16 16:15 21:12 WBC RBC Hgb Hct MCV MCH MCHC RDW Plt Count MPV Sodium Potassium Chloride Carbon Dioxide Anion Gap BUN Creatinine Est GFR ( Amer) Est GFR (Non-Af Amer) POC Glucose (mg/dL) 85 96 93 Random Glucose Calcium Magnesium 08/01/17 08/01/17 08/01/17 05:51 05:51 07:36 WBC 6.3 RBC 3.02 L Hgb 9.2 L Hct 27.4 L MCV 90.5 MCH 30.4 MCHC 33.6 RDW 16.4 H Plt Count 100 L MPV 9.6 Sodium 141 Potassium 3.6 Chloride 103 Carbon Dioxide 30 Anion Gap 12 BUN 10 Creatinine 2.5 H Est GFR ( Amer) 30 Est GFR (Non-Af Amer) 25 POC Glucose (mg/dL) 85 Random Glucose 72 L Calcium 8.0 L Magnesium 1.7 Fingerstick Blood Sugar Results: 85 Critical Care Progress Note - Nutrition Nutrition: Nutrition Category Date Time Status Liquid Diet [DIET] Diets 07/30/17 Breakfast Active
--- NOTE | 2017-08-01 16:32 | CP.PCM.PN ---
Subjective - Date & Time of Evaluation Date of Evaluation: 08/01/17 Time of Evaluation: 16:30 - Subjective Subjective: on hd tts had hd yesterday now no active bleeding to floor soon next tx on This is 81M w/ hx of Anemia, Anxiety, Atrial Fibrillation, Diabetes, HTN, Hypercholesterolemia, End Stage Renal Disease, Chronic Kidney Disease ( hemodialysis) who presented to the ER with Chest Pain. GI consulted for melena and anemia. S/P EGD 07/27/17: multiple ulcers in the duodenum sweep and 2nd portion s/p heat probe, visible vessel at the fundus of the stomach s/p heat probe. S/p EGD 07/28/17: revealed no active bleeding from previous ulceration sites; s/p colonoscopy 07/29/17: revealed altered anatomy s/p extended right sided hemicolectomy with side to side anastomosis with ileum?, only old melena and no active bleeding visualized. + bleeding scan; localizing to cecum? and ascending?, but neg CT angio 1. Anemia 2. Melena-resolved 3. ESRD 4. PVD 5. Dementia Plan: -Continue supportive care -Advance diet as tolerated -Continue PPI 40mg BID -S/p 2 unit PRBC, hgb stable at 8.8 -Continue to monitor h/h -If pt has another recurrent bleed, CT angio immediately and inform IR -No active bleeding found on colonoscopy -No additional GI intervention at this time -Recommend discontinue plavix -Desmopressin 1eith HD for possible uremic platelet dysfunction Objective - Vital Signs/Intake and Output Vital Signs (last 24 hours): Temp Pulse Resp BP Pulse Ox 98.6 F 74 18 147/64 95 08/01/17 12:00 08/01/17 15:00 08/01/17 15:00 08/01/17 14:34 08/01/17 15:00 Intake and Output: 08/01/17 08/01/17 06:59 18:59 Intake Total 420 Balance 420 - Medications Medications: Current Medications Ascorbic Acid (Vitamin C 500 Mg Tab) 500 mg PO DAILY [facility] Last Admin: 08/01/17 09:34 Dose: 500 mg Epoetin Javed (Procrit) 10,000 unit IV TTS RO Stop: 08/07/17 10:01 Last Admin: 07/31/17 19:23 Dose: 10,000 unit Ergocalciferol (Drisdol 50,000 Intl Units Cap) 1 cap PO Q7D [facility] Last Admin: 07/26/17 21:29 Dose: Not Given Mupirocin (Bactroban Ointment) 0 gm TOP BID [facility] Last Admin: 08/01/17 09:37 Dose: 1 applic Pantoprazole Sodium (Protonix Ec Tab) 40 mg PO Q12 [facility] Potassium Phos/Sodium Phos (Neutra-Phos) 1 pkt PO DAILY [facility] Last Admin: 08/01/17 09:34 Dose: 1 pkt Vitamin B Complex/Vit C/Folic Acid (Nephro-Xavier) 1 tab PO 0800 [facility] Last Admin: 08/01/17 08:08 Dose: 1 tab - Labs Labs: 08/01/17 05:51 08/01/17 05:51 PT 11.9 SECONDS (9.7-12.2) 07/30/17 04:00 INR 1.1 07/30/17 04:00 APTT 31 SECONDS (21-34) 07/30/17 04:00 - Constitutional Appears: Non-toxic - Head Exam Head Exam: NORMAL INSPECTION - Eye Exam Pupil Exam: NORMAL ACCOMODATION - ENT Exam ENT Exam: Mucous Membranes Moist - Respiratory Exam Respiratory Exam: NORMAL BREATHING PATTERN - Cardiovascular Exam Cardiovascular Exam: REGULAR RHYTHM - GI/Abdominal Exam GI & Abdominal Exam: Normal Bowel Sounds - Extremities Exam Extremities Exam: Normal Inspection - Neurological Exam Neurological Exam: Alert, Awake - Psychiatric Exam Psychiatric exam: Flat Affect - Skin Skin Exam: Dry, Warm Assessment and Plan - Assessment and Plan (Free Text) Plan: hd tts
[2017-08-01] MEDS: Pantoprazole 40 mg EC Tab PO SCH (21:16)
--- NOTE | 2017-08-01 21:33 | PN ---
DATE: 08/01/2017 SUBJECTIVE: The patient is tolerating liquid diet. No reported melena. No reported ventricular arrhythmia. PHYSICAL EXAMINATION: VITAL SIGNS: Blood pressure 147/64, heart rate 97, temperature 98.6, respirations 16. HEENT: Pale conjunctiva. CHEST: Clear. HEART: S1 and S2, regular. EXTREMITIES: Dressings applied to right foot, no edema. LABORATORY DATA: Today's SMA-7: Sodium 141, potassium 3.6, chloride 103, CO2 30, glucose 72, BUN 10, creatinine 2.5, magnesium is 1.7. Today's hemoglobin and hematocrit 9.2 and 27.4, white count 6.3, and platelet count 100,000. ASSESSMENT: 1. Implantable cardioverter defibrillator with single chamber ventricular pacemaker placement. 2. Peripheral vascular disease. 3. Endstage renal disease. on hemodialysis. 4. Lower gastrointestinal bleeding. 5. Anemia. 6. Hypoglycemia. 7. Hypophosphatemia. RECOMMENDATIONS: Continue Neutra-Phos at 1 packet daily. Continue Procrit 10,000 units intravenously . Continue vitamin C 500 mg daily and Protonix 40 mg p.o. twice a day. Miah Gallagher MD
--- NOTE | 2017-08-02 00:09 | PN ---
DATE: 08/01/2017 SUBJECTIVE: The patient is seen today, 08/01/2017. He is tolerating liquid diet, and no further obvious bleeding could be detected. OBJECTIVE: VITAL SIGNS: Blood pressure 136/51, temperature 97.6, respiratory rate 18, and pulse 86. HEENT: Pale mucosa of the conjunctivae. NECK: Supple. No JVD. No carotid bruit. No lymph node. No thyromegaly. CHEST AND LUNGS: Bilateral symmetrical expansion. Good air exchange. No rales, no rhonchi. CARDIOVASCULAR SYSTEM: PMI not localized. S1, S2. No additional sounds. ABDOMEN: Normoactive bowel sounds. No tenderness. No organomegaly. No masses. EXTREMITIES: No cyanosis, no clubbing, no edema. TECHNICAL SUPPORT TECHNICIAN: Alert, awake, and oriented x2. No neurological deficit could be appreciated except for right upper extremity weakness which was old from previous CVA. ASSESSMENT: 1. Gastrointestinal bleeding, likely upper. 2. Anemia of acute blood loss. 3. End-stage renal disease, on hemodialysis. 4. Status post CVA with right-sided weakness, upper more than lower extremity. PLAN: We will advance diet as tolerated as per GI. Continue monitoring hemoglobin and hematocrit. Hemodialysis as per per diem clerk. Continue current medications. Jody Krishnamurthy MD
[2017-08-02] MEDS: Pantoprazole 40 mg EC Tab PO SCH ×2 (09:06→21:27)
[2017-08-02] MEDS: Potassium & Sodium Phosphate PO SCH (09:06)
[2017-08-02] MEDS: Multivitamin Vitamin B Complex (Nephro-Vite) Tab PO SCH (09:06)
[2017-08-02] MEDS ORDERED: Epoetin Alfa 10,000 unit/ml Dialysis IV SCH (16:17)
--- NOTE | 2017-08-02 19:24 | PN ---
DATE: SUBJECTIVE: The patient is awake and cooperative. Denies any chest pain or shortness of breath. PHYSICAL EXAMINATION: VITAL SIGNS: Blood pressure 165/58, heart rate 70, temperature 97.9, respirations 18. HEENT: Pale conjunctivae. CHEST: Bilateral basal rhonchi. HEART: S1 and S2, regular. ABDOMEN: Soft. EXTREMITIES: Dressing is on right toe, right foot. No pedal edema. ASSESSMENT: 1. Status post single-chamber pacemaker placement. The patient is currently in sinus rhythm. 2. Peripheral vascular disease. 3. Status post recent right first and second toes amputation. 4. Gastrointestinal bleeding, status post packed red blood cells as well as platelet transfusion. 5. End-stage renal disease, on hemodialysis. RECOMMENDATIONS: Continue current Nephro-Xavier one tablet daily, Neutra-Phos one packet daily, Procrit 10,000 units intravenously , vitamin C 500 mg daily, Protonix 40 mg p.o. twice a day. Consider surgical approach. Miah Gallagher MD
--- NOTE | 2017-08-02 19:44 | CP.PCM.PN ---
Subjective - Date & Time of Evaluation Date of Evaluation: 08/02/17 Time of Evaluation: 15:00 - Subjective Subjective: SEEN ON RENAL F/U IN BED , RESTING .. NAD FEELS OK .. OFFERS NO C/O APPEARS SEVERELY DEPRESSED APPARENTLY , HOPEFULLY GIB HAS STOPPED Objective - Vital Signs/Intake and Output Vital Signs (last 24 hours): Temp Pulse Resp BP Pulse Ox 97.9 F 77 16 116/54 L 99 08/02/17 16:50 08/02/17 16:50 08/02/17 13:50 08/02/17 16:50 08/02/17 13:50 - Medications Medications: Current Medications Ascorbic Acid (Vitamin C 500 Mg Tab) 500 mg PO DAILY [facility] Last Admin: 08/02/17 09:06 Dose: 500 mg Epoetin Javed (Procrit) 10,000 unit IV TTS [facility] Stop: 08/07/17 10:01 Last Admin: 07/31/17 19:23 Dose: 10,000 unit Epoetin Javed (Procrit) 10,000 unit IV MWF [facility] Stop: 08/07/17 16:14 Last Admin: 08/02/17 16:42 Dose: 10,000 unit Ergocalciferol (Drisdol 50,000 Intl Units Cap) 1 cap PO Q7D [facility] Last Admin: 07/26/17 21:29 Dose: Not Given Heparin Sodium (Porcine) (Heparin) 3,900 units IVP MWF [facility] Mupirocin (Bactroban Ointment) 0 gm TOP BID [facility] Last Admin: 08/02/17 09:05 Dose: 1 applic Pantoprazole Sodium (Protonix Ec Tab) 40 mg PO Q12 [facility] Last Admin: 08/02/17 09:06 Dose: 40 mg Potassium Phos/Sodium Phos (Neutra-Phos) 1 pkt PO DAILY [facility] Last Admin: 08/02/17 09:06 Dose: 1 pkt Vitamin B Complex/Vit C/Folic Acid (Nephro-Xavier) 1 tab PO 0800 [facility] Last Admin: 08/02/17 09:06 Dose: 1 tab - Labs Labs: 08/01/17 05:51 08/01/17 05:51 PT 11.9 SECONDS (9.7-12.2) 07/30/17 04:00 INR 1.1 07/30/17 04:00 APTT 31 SECONDS (21-34) 07/30/17 04:00 Assessment and Plan - Assessment and Plan (Free Text) Assessment: ESRD ON HD TIW ANEMIA OF CKD + GIB MMP P : C/O HD C/O EPO AND FERRLICIT C/O PRESENT MANAGEMENT WATCH FOR GIB
[2017-08-02] MEDS ORDERED: Ergocalciferol 50,000 Intl Units Cap PO SCH (22:00)
--- NOTE | 2017-08-03 00:05 | PN ---
DATE: 08/02/2017 SUBJECTIVE: The patient is seen today, 08/02/2017. He is not in any cardiopulmonary distress. The patient is started on pureed diet, and so far he is tolerating. OBJECTIVE: VITAL SIGNS: Blood pressure 116/54, temperature 97.9, respiratory rate 18, and pulse 77. HEENT: Pale mucosa of the conjunctivae. NECK: Supple. No JVD. No carotid bruit. No lymph node. No thyromegaly. CHEST AND LUNGS: Bilateral symmetrical expansion. Good air exchange. No rales, no rhonchi. CARDIOVASCULAR SYSTEM: PMI not localized. S1, S2. No additional sounds. ABDOMEN: Normoactive bowel sounds. No tenderness. No organomegaly. No masses. EXTREMITIES: No cyanosis, no clubbing, no edema. SUPERVISOR DENTURE DEPARTMENT: Alert, awake, and oriented x1, and the patient has right-sided weakness, upper more than lower extremity. ASSESSMENT: Gastrointestinal bleeding; anemia of acute blood loss; end-stage renal disease, on hemodialysis; hypertension. PLAN: Continue current proton pump inhibitor. Advance diet as tolerated. Physical therapy, and continue hemodialysis. Jody Krishnamurthy MD
[2017-08-03 00:27] VITALS: RESP 20
[2017-08-03] MEDS: Multivitamin Vitamin B Complex (Nephro-Vite) Tab PO SCH (08:12)
[2017-08-03] MEDS: Potassium & Sodium Phosphate PO SCH (10:00)
[2017-08-03] MEDS: Pantoprazole 40 mg EC Tab PO SCH (10:00)
[2017-08-03 10:43] LABS: BASO # 0.1 K/uL (0.0-0.2); BASO % 1.2 % (0.0-2.0); EOS # 0.2 K/uL (0.0-0.7); EOS % 2.7 % (0.0-4.0); HEMOGLOBIN 11.5 g/dL (12.0-18.0); LYMPH # 0.9 K/uL (1.0-4.3); LYMPH % 12.5 % (20.0-40.0); MEAN CELL VOLUME 91.6 fL (80.0-94.0); MEAN CORPUSCULAR HGB CONC 32.7 g/dL (33.0-37.0); MEAN PLATELET VOLUME 9.6 fL (7.2-11.7); MONO # 0.5 K/uL (0.0-0.8); MONO % 7.3 % (0.0-10.0); NEUT # 5.7 K/uL (1.8-7.0); NEUT % 76.3 % (50.0-75.0); NRBC % 0.1 % (0.0-2.0); RBC 3.82 Mil/uL (4.40-5.90); RED CELL DISTRIBUTION WIDTH 17.4 % (11.5-14.5); WHITE BLOOD COUNT 7.4 K/uL (4.8-10.8)
[2017-08-03 10:59] LABS: ALB/GLOB RATIO 0.9 (1.0-2.1); ALBUMIN 2.8 g/dL (3.5-5.0); CALCIUM 7.8 mg/dl (8.6-10.4)
--- NOTE | 2017-08-03 14:00 | CP.PCM.PN ---
Subjective - Date & Time of Evaluation Date of Evaluation: 08/03/17 Time of Evaluation: 13:57 - Subjective Subjective: PT SEEN AND EXAMINED TODAY, RESP EASY AND UNLABORED, NAD Objective - Vital Signs/Intake and Output Vital Signs (last 24 hours): Temp Pulse Resp BP Pulse Ox 98.4 F 75 20 149/63 97 08/03/17 08:25 08/03/17 12:01 08/03/17 08:25 08/03/17 08:25 08/03/17 12:01 Intake and Output: 08/03/17 08/03/17 06:59 18:59 Intake Total 50 Balance 50 - Medications Medications: Current Medications Ascorbic Acid (Vitamin C 500 Mg Tab) 500 mg PO DAILY [facility] Last Admin: 08/02/17 09:06 Dose: 500 mg Epoetin Javed (Procrit) 10,000 unit IV TTS [facility] Stop: 08/07/17 10:01 Last Admin: 07/31/17 19:23 Dose: 10,000 unit Epoetin Javed (Procrit) 10,000 unit IV MWF [facility] Stop: 08/07/17 16:14 Last Admin: 08/02/17 16:42 Dose: 10,000 unit Ergocalciferol (Drisdol 50,000 Intl Units Cap) 1 cap PO Q7D [facility] Last Admin: 08/02/17 21:57 Dose: 1 cap Heparin Sodium (Porcine) (Heparin) 3,900 units IVP MWF [facility] Mupirocin (Bactroban Ointment) 0 gm TOP BID [facility] Last Admin: 08/02/17 21:28 Dose: 1 applic Pantoprazole Sodium (Protonix Ec Tab) 40 mg PO Q12 [facility] Last Admin: 08/02/17 21:27 Dose: 40 mg Potassium Phos/Sodium Phos (Neutra-Phos) 1 pkt PO DAILY [facility] Last Admin: 08/02/17 09:06 Dose: 1 pkt Vitamin B Complex/Vit C/Folic Acid (Nephro-Xavier) 1 tab PO 0800 [facility] Last Admin: 08/03/17 08:12 Dose: 1 tab - Labs Labs: 08/03/17 10:37 08/03/17 10:37 PT 11.9 SECONDS (9.7-12.2) 07/30/17 04:00 INR 1.1 07/30/17 04:00 APTT 31 SECONDS (21-34) 07/30/17 04:00 Assessment and Plan - Assessment and Plan (Free Text) Plan: 81 Y/O MALE WITH PMHX ANEMIAN, HTN, DM, HLD, AFIB, CKD, HD ADMITTED FOR CHETS PAIN, GIB, SEEN BY GI, COLONSCOPY- OLD [place], NO ACTIVE BLEEDING , CT ANGIO- NEGATIVE HgB - 11.5 PPI- 40 MG BID, DISCONTINUE PLAVIX PT CLEARED FOR D/C PER DR VICKERS, GI
[2017-08-03 16:19] VITALS: BP 116/61; PULSE 73; TEMP 97.9; O2SAT 96
--- NOTE | 2017-08-03 19:24 | PN ---
DATE: 08/03/2017 SUBJECTIVE: The patient denies chest pain. He does not appear to be in any distress. PHYSICAL EXAMINATION: VITAL SIGNS: Blood pressure 149/63, heart rate 75, temperature 98.4, respirations 20. HEENT: Normocephalic. CHEST: Clear. HEART: S1 and S2, regular. EXTREMITIES: A dressing is applied to the right foot. No pedal edema or significant muscle wasting. LABORATORY DATA: Today's hemoglobin and hematocrit are 11.5 and 35.0, white count 7.4, and platelet count has improved to 226,000. Today's BUN and creatinine are 7 and 3.3 respectively. Calcium is below normal at 7.8. ASSESSMENT: 1. Systemic hypertension. 2. Status post lower gastrointestinal bleeding. 3. Diastolic left ventricular dysfunction. 4. End-stage renal disease, on hemodialysis. 5. Status post hypertension. 6. Improving thrombocytopenia. 7. Peripheral vascular disease. RECOMMENDATIONS: Continue subcutaneous Procrit, Wednesday, Wednesday, and Wednesday. Continue oral Protonix at 40 mg twice a day. The patient is currently receiving heparin while on hemodialysis three times a week. Antiplatelet disorder not justified at this point. Miah Gallagher MD
--- NOTE | 2017-08-03 20:01 | CP.PCM.PN ---
Subjective - Date & Time of Evaluation Date of Evaluation: 08/03/17 Time of Evaluation: 15:00 - Subjective Subjective: SEEN ON RENAL F/U IN BED RESTING ALERT AND RESPONSIVE .. NAD HAD HD YESTERDAY .. TOLERATED WELL GETTTING READY FOR TRANSFER TO REHAB Objective - Vital Signs/Intake and Output Vital Signs (last 24 hours): Temp Pulse Resp BP Pulse Ox 97.9 F 73 20 116/61 96 08/03/17 16:00 08/03/17 16:00 08/03/17 16:00 08/03/17 16:00 08/03/17 16:00 Intake and Output: 08/03/17 08/04/17 18:59 06:59 Intake Total 400 Balance 400 - Medications Medications: Current Medications Ascorbic Acid (Vitamin C 500 Mg Tab) 500 mg PO DAILY [facility] Last Admin: 08/03/17 10:00 Dose: 500 mg Epoetin Javed (Procrit) 10,000 unit IV TTS [facility] Stop: 08/07/17 10:01 Last Admin: 07/31/17 19:23 Dose: 10,000 unit Epoetin Javed (Procrit) 10,000 unit IV MWF [facility] Stop: 08/07/17 16:14 Last Admin: 08/02/17 16:42 Dose: 10,000 unit Ergocalciferol (Drisdol 50,000 Intl Units Cap) 1 cap PO Q7D [facility] Last Admin: 08/02/17 21:57 Dose: 1 cap Heparin Sodium (Porcine) (Heparin) 3,900 units IVP MWF [facility] Mupirocin (Bactroban Ointment) 0 gm TOP BID [facility] Last Admin: 08/03/17 18:50 Dose: 1 applic Pantoprazole Sodium (Protonix Ec Tab) 40 mg PO Q12 [facility] Last Admin: 08/03/17 10:00 Dose: 40 mg Potassium Phos/Sodium Phos (Neutra-Phos) 1 pkt PO DAILY [facility] Last Admin: 08/03/17 10:00 Dose: 1 pkt Vitamin B Complex/Vit C/Folic Acid (Nephro-Xavier) 1 tab PO 0800 [facility] Last Admin: 08/03/17 08:12 Dose: 1 tab - Labs Labs: 08/03/17 10:37 08/03/17 10:37 PT 11.9 SECONDS (9.7-12.2) 07/30/17 04:00 INR 1.1 07/30/17 04:00 APTT 31 SECONDS (21-34) 07/30/17 04:00 Assessment and Plan - Assessment and Plan (Free Text) Assessment: ESRD ON HD M W F .. ANEMIA OF CKD .. ALSO BIG TIME GIB .. REQIURED BLOOD TRANSFUSION MMP P : C/O CURRENT CARE STABLE FOR D/C FROM RENAL STAND POINT
--- NOTE | 2017-08-04 21:18 | DS ---
REASON FOR ADMISSION: This is an 81-year-old male with history of multiple medical problems including end-stage renal disease and hemodialysis, presented for upper GI bleeding. COURSE OF HOSPITALIZATION: The patient was admitted to intensive care unit and he had an EGD done by Dr. Hooper's group. The patient was found to have a bleeding ulcer that was dealt with endoscopically. The patient had to be transfused many units of packed RBCs during this admission. The patient was in intensive care unit and as he remained stable and was able to advance the diet, the patient was transferred to the floor. The patient was continued on Protonix during this admission and he was discharged back to [facility]. FINAL DIAGNOSES: 1. Upper gastrointestinal bleeding. 2. Anemia of acute blood loss. 3. End-stage renal disease, on hemodialysis. Jody Krishnamurthy MD
== END 2017-08-03 19:50 | DRG 377 ==
LOC: C.ER 16:53 → C.9E 18:35 → C.9I 07-27 07:34 → OBSVTOIN 07-27 12:25 → C.3T 08-02 11:13
PROVIDERS: ADMIT Internal Medicine; ATTEND Internal Medicine
PROC: 0W3P8ZZ Control Bleeding in Gastrointestinal Tract, Via Natural or Artificial Opening Endoscopic (ICD-10-PCS; 2017-07-27)
PROC: 02HV33Z Insertion of Infusion Device into Superior Vena Cava, Percutaneous Approach (ICD-10-PCS; 2017-07-27)
PROC: 0DB68ZX Excision of Stomach, Via Natural or Artificial Opening Endoscopic, Diagnostic (ICD-10-PCS; 2017-07-27)
PROC: 3E0G8GC Introduction of Other Therapeutic Substance into Upper GI, Via Natural or Artificial Opening Endoscopic (ICD-10-PCS; 2017-07-27)
PROC: 30233N1 Transfusion of Nonautologous Red Blood Cells into Peripheral Vein, Percutaneous Approach (ICD-10-PCS; principal; 2017-07-27 07:37)
PROC: 30233L1 Transfusion of Nonautologous Fresh Plasma into Peripheral Vein, Percutaneous Approach (ICD-10-PCS; 2017-07-28)
PROC: 0DJ08ZZ Inspection of Upper Intestinal Tract, Via Natural or Artificial Opening Endoscopic (ICD-10-PCS; 2017-07-28)
PROC: 5A1D70Z Performance of Urinary Filtration, Intermittent, Less than 6 Hours Per Day (ICD-10-PCS; 2017-07-29)
PROC: 0DJD8ZZ Inspection of Lower Intestinal Tract, Via Natural or Artificial Opening Endoscopic (ICD-10-PCS; 2017-07-29)
DX: K26.4 Chronic or unspecified duodenal ulcer with hemorrhage (principal); N18.6 End stage renal disease; E11.22 Type 2 diabetes mellitus with diabetic chronic kidney disease; E11.51 Type 2 diabetes mellitus with diabetic peripheral angiopathy without gangrene; D69.6 Thrombocytopenia, unspecified; I95.9 Hypotension, unspecified; I12.0 Hypertensive chronic kidney disease with stage 5 chronic kidney disease or end stage renal disease; E11.649 Type 2 diabetes mellitus with hypoglycemia without coma; D62 Acute posthemorrhagic anemia; I48.91 Unspecified atrial fibrillation; D63.1 Anemia in chronic kidney disease; Z99.2 Dependence on renal dialysis; E78.00 Pure hypercholesterolemia, unspecified; F41.9 Anxiety disorder, unspecified; Z85.028 Personal history of other malignant neoplasm of stomach; F03.90 Unspecified dementia, unspecified severity, without behavioral disturbance, psychotic disturbance, mood disturbance, and anxiety; K44.9 Diaphragmatic hernia without obstruction or gangrene; K25.9 Gastric ulcer, unspecified as acute or chronic, without hemorrhage or perforation; I95.81 Postprocedural hypotension; I51.7 Cardiomegaly; I69.331 Monoplegia of upper limb following cerebral infarction affecting right dominant side